=== PATIENT | female | born 1955 | race Caucasian/White ===

== ENCOUNTER 2021-04-20 09:53 | Outpatient (REF) | payer MEDICARE, SELFPAY ==
[2021-04-20 11:19] LABS: MANUAL DIFF FLAG NO
[2021-04-20 11:23] LABS: Basophils Absolute Auto 0.1 X10*3/uL (0.0-0.2); Basophils Percent Auto 0.9 % (0-2); Eosinophils Absolute Auto 0.3 X10*3/uL (0.0-0.4); Eosinophils Percent Auto 4.6 % (0-4); Hematocrit 43.6 % (37-47); Hemoglobin 14.4 g/dl (12.0-16.0); Imm Gran Abs Auto 0.02 X10*3/uL (0.00-0.03); Imm Gran Pct Auto 0.3 % (0.0-0.4); Lymphocytes Absolute Auto 2.4 X10*3/uL (1.2-4.9); Lymphocytes Percent Auto 31.9 % (20-40); Mean Corpuscular Hemoglobin 28.9 pg (27.0-33.0); Mean Corpuscular Volume 87.4 fL (80-98); Mean Platelet Volume 9.4 fL (9.4-12.3); Monocytes Absolute Auto 0.6 X10*3/uL (0.1-1.2); Monocytes Percent Auto 7.8 % (2-11); Neutrophils Absolute Auto 4.1 X10*3/uL (2.0-8.3); Neutrophils Percent Auto 54.5 % (45-73); Platelet Count 245 X10*3/uL (160-400); Red Blood Count 4.99 X10*6/uL (4.20-5.50); Red Cell Distribution Width 13.2 % (11.0-16.0); White Blood Count 7.4 X10*3/uL (4.8-10.8)
[2021-04-20 11:45] LABS: Alanine Aminotransferase 13 U/L (0-31); Alkaline Phosphatase 84 U/L (39-117); Anion Gap 12 (12-20); Aspartate Amino Transferase 16 U/L (5-31); Bilirubin Total 0.6 mg/dL (0.0-1.0); Blood Urea Nitrogen 18 mg/dL (9-16); Calcium 9.5 mg/dL (8.4-10.2); Carbon Dioxide 24 mmol/L (22-29); Chloride 110 mmol/L (96-108); Cholesterol 170 mg/dL; Estimated Glomerular Filt Rate > 60; Glucose Fasting 102 mg/dL (60-99); HDL Cholesterol 56 mg/dL; LDL Cholesterol Calculated 96 mg/dl; Potassium 4.6 mmol/L (3.3-5.1); Sodium 141 mmol/L (135-145); Total Protein 6.6 g/dL (6.5-8.0); Triglycerides 91 mg/dL
[2021-04-20 11:54] LABS: Free T4 (Free Thyroxine) 0.98 ng/dL (0.71-1.85); Thyroid Stimulating Hormone 4.92 uIU/mL (0.32-4.0)
== END 2021-04-20 09:54 | disposition home or self-care (01) ==
LOC: HO.HMGCLDS 09:53
PROVIDERS: PCP Internal Medicine; Visit Provider Internal Medicine
DX: R21 Rash and other nonspecific skin eruption (principal); E03.9 Hypothyroidism, unspecified; L70.9 Acne, unspecified; Z86.010 Personal history of colon polyps; Z82.49 Family history of ischemic heart disease and other diseases of the circulatory system
CPT/HCPCS: 36415; 80053; 80061; 84439; 84443; 85025

== ENCOUNTER 2021-06-25 08:27 | Day surgery (SDC) | payer MEDICARE, SELFPAY ==
[2021-06-19 14:02] VITALS: BMI 38.4
--- NOTE | 2021-06-21 14:02 | HO.ANESPROP2 ---
Documented by User: Soheila Griffith NP 06/21/21 14:12 HPI - Anesthesia Eval Consult details Narrative: 66yo F for Colonoscopy [facility] Surgical History Surgical History History of loop electrical excision procedure (LEEP) Hx of colonoscopy Hx of tubal ligation Social History Social History Patient Tobacco Use Status: Never used Tobacco Use of substances other than those prescribed or required for medical reasons: No Are you DNR?: No Advance Directives: No Advance Directives Information Provided: Yes Recently lost weight without trying: No Nutrition Risks: No Nutritional Risk Meds Allergies Allergy/AdvReac Type Severity Reaction Status Date / Time Sulfa (Sulfonamide Allergy Severe Anaphylaxis Verified 06/25/21 08:56 Antibiotics) amoxicillin Allergy Mild Rash Verified 06/25/21 08:56 Exam Exam Date and Time: June 21, 2021 1402 Height,Weight and Vital Signs: Height 5 ft 2 in Weight 95.254 kg Pertinent Lab Results Pertinent Lab Results: Laboratory Tests 04/20/21 04/20/21 10:00 10:00 WBC 7.4 Hgb 14.4 Hct 43.6 Plt Count 245 Sodium 141 Potassium 4.6 Chloride 110 H Carbon Dioxide 24 BUN 18 H Creatinine 0.92 Assessment and Plan Assessment Anesthesia Assessment: Chart Reviewed Documented by User: Bel Jorge MD 06/25/21 09:50 [facility] Surgical History Surgical History History of loop electrical excision procedure (LEEP) Hx of colonoscopy Hx of tubal ligation History of Problems with Anesthesia: No Social History Social History Patient Tobacco Use Status: Never used Tobacco Use of substances other than those prescribed or required for medical reasons: No Are you DNR?: No Advance Directives: No Advance Directives Information Provided: Yes Recently lost weight without trying: No Nutrition Risks: No Nutritional Risk Meds Allergies Allergy/AdvReac Type Severity Reaction Status Date / Time Sulfa (Sulfonamide Allergy Severe Anaphylaxis Verified 06/25/21 08:56 Antibiotics) amoxicillin Allergy Mild Rash Verified 06/25/21 08:56 Exam Airway Mallampati Class: II TM Dist: >3cm Neck ROM: Full Heart: RRR Lungs: CTA Assessment and Plan Assessment Anesthesia Assessment: Anesthesia Plan Discussed Final Anesthetic Review History of Problems with Anesthesia: No NPO: Yes ASA Class: II Final Preanesthetic Review: Meds/Allgs Chart Reviewed, Consent Obtained/Reviewed and Anes Risks/Benef Reviewed Patient Risk: Low Procedure Risk: Low Anesthetic Plan Anesthetic Plan: MAC: Disposition: Standard PACU
[2021-06-25 08:34] VITALS: BMI 37.5
[2021-06-25 08:37] VITALS: BP 148/79; PULSE 87; RESP 16; TEMP 36.7; O2SAT 98
[2021-06-25] MEDS: Lactated Ringers 1,000 ML 100 ML IVCONT (08:54)
[2021-06-25 10:50] VITALS: BP 110/57; PULSE 72; RESP 16; TEMP 36.8; O2SAT 93
--- NOTE | 2021-06-25 10:52 | P.BOP_ITS ---
Brief Operative Note Date of Service: 06/25/21 Pre-op diagnosis: Screening, change in BM's Post-op diagnosis: other (Colon polyp, R/O microscopic colitis, R/O proctitis) Procedure: Colonoscopy to the cecum and TI with bx/removal of polyp, and biopsies Surgeon: Gerardo Allan Anesthesia: MAC Was an Staff Software Engineer used for this Procedure?: No Estimated blood loss (mL): 3.0 Pathology: other (A. Ascending colon B.Polyp at 50cm C. Descending colon D. Rectum) Condition: stable Disposition: PACU
[2021-06-25 11:05] VITALS: BP 121/96; PULSE 64; RESP 18; TEMP 37.2; O2SAT 99
--- NOTE | 2021-06-25 15:16 | OP_ITS ---
SURGEON: Gerardo Allan MD INDICATIONS: The patient presents for evaluation of colorectal cancer screening, personal history of tubular adenoma of the colon, and slight change in bowel habits. Full consent has been obtained from her for this, including risks of bleeding and perforation. PREOPERATIVE DIAGNOSIS: POSTOPERATIVE DIAGNOSIS: PROCEDURE PERFORMED: Colonoscopy to the cecum and terminal ileum with biopsy and removal of polyp, and biopsies. ESTIMATED BLOOD LOSS: COMPLICATIONS: ANESTHESIA: Monitored anesthesia care. ASSISTANTS: SPECIMENS: PREOPERATIVE DIAGNOSES: Colorectal cancer screening, personal history of tubular adenoma of the colon, change in bowel habits. POSTOPERATIVE DIAGNOSES: Colorectal cancer screening, personal history of tubular adenoma of the colon, change in bowel habits, small colon polyp, rule out microscopic colitis and proctitis, diverticulosis and internal hemorrhoids. DESCRIPTION OF PROCEDURE: The patient was placed in the left lateral decubitus position. The digital rectal exam revealed no abnormalities. The Olympus video pediatric colonoscope was entered into the rectum and advanced easily to the cecum. Once in the cecum, I did identify normal-appearing cecal pouch with appendiceal orifice and a normal-appearing ileocecal valve. The terminal ileum was cannulated and appeared normal. The scope was withdrawn back in the colon. The entire cecum and ileocecal valve appeared normal. The scope was slowly withdrawn assessing all mucosal surfaces carefully. Preparation was excellent. At 50 cm, was a flat approximately 3 or 4 mm polyp, which was biopsied and completely removed with cold biopsy forceps. I did not visualize any sign of colitis. Biopsies were obtained in the ascending and descending colon to rule out microscopic colitis. There was a mild amount of sigmoid diverticulosis. In the rectum, scope was retroflexed visualizing internal hemorrhoids, as well as some questionable changes of a proctitis with some edema and erythema, but no erosions nor ulceration. Biopsies were obtained from the distal rectum as well. The scope was straightened out and withdrawn from the patient. She tolerated the procedure well and was returned to recovery area in stable condition. IMPRESSION: 1. Small colon polyp, status post biopsy and removal. 2. Diverticulosis. 3. Rule out microscopic colitis. 4. Rule out proctitis. 5. Internal hemorrhoids. PLAN: The results of the biopsies will be checked. I would recommend a repeat colonoscopy in 5 years for further screening in regard to the finding of the polyp and her previous history of polyps. She did advise me that using some Imodium was helping her bowel movements improve and I would recommend that she simply continue that for the time being. If things are stable, she can see me on a p.r.n. basis. Depending upon the results of the biopsies and her clinical course, I may need to see her in the future and possibly start her on any specific treatment for underlying colitis or proctitis. She was advised not to use any aspirin and NSAIDs for 1 more week. This has been discussed with her . MD KEVIN Moreau/SHARI / [id number]
== END 2021-06-25 12:22 | disposition home or self-care (01) ==
PROVIDERS: PCP Internal Medicine; Visit Provider Internal Medicine
PROC: 0DJD8ZZ Inspection of Lower Intestinal Tract, Via Natural or Artificial Opening Endoscopic (ICD-10-PCS; CPT 45378; principal; 2021-06-25 09:40)
DX: Z12.11 Encounter for screening for malignant neoplasm of colon (principal); Z86.010 Personal history of colon polyps; D12.5 Benign neoplasm of sigmoid colon; K57.30 Diverticulosis of large intestine without perforation or abscess without bleeding; K64.8 Other hemorrhoids; K58.8 Other irritable bowel syndrome; Z79.82 Long term (current) use of aspirin; Z88.2 Allergy status to sulfonamides; Z88.1 Allergy status to other antibiotic agents; Z98.51 Tubal ligation status
CPT/HCPCS: 45380; 88305

== ENCOUNTER 2021-07-20 12:59 | Outpatient (REF) | payer MEDICARE, SELFPAY ==
--- NOTE | ~2021-07-20 | MM_ITS ---
EXAMINATION: MM SCREENING DIGITAL BREAST TOMOSYNTHESIS, BILATERAL CLINICAL INFORMATION: Screening. Asymptomatic. The lifetime risk of breast cancer based on the Tyrer-Cuzick Model is 7%. COMPARISON: Mammography: 05/11/2020, 03/30/2019, 02/16/2018 TECHNIQUE: Digital breast tomosynthesis is performed in both the craniocaudal and mediolateral oblique views along with computer-aided detection (CAD). Synthesized 2D images are generated from the tomosynthesis. FINDINGS: The breasts are almost entirely fatty (ACR BI-RADS breast composition Category a). There are no significant masses, abnormal calcifications, or other abnormalities. Background stromal markings are stable. No significant changes. MM/MM tomosynthesis screening BI IMPRESSION: No mammographic evidence of malignancy. ASSESSMENT: BI-RADS 1: Negative RECOMMENDATION: Routine annual mammography screening. This patient's information was entered into a reminder system with a target due date for their next mammogram.
== END 2021-07-20 13:00 | disposition home or self-care (01) ==
LOC: HO.MAMMO 12:59
PROVIDERS: Visit Provider Internal Medicine
DX: Z12.31 Encounter for screening mammogram for malignant neoplasm of breast (principal)
CPT/HCPCS: 77063; 77067

== ENCOUNTER 2021-12-18 10:14 | Outpatient (REF) | payer MEDICARE, SELFPAY ==
[2021-12-18 11:59] LABS: Alanine Aminotransferase 13 U/L (0-31); Albumin Level 3.9 g/dL (3.5-5.0); Alkaline Phosphatase 81 U/L (39-117); Anion Gap 12 (12-20); Aspartate Amino Transferase 16 U/L (5-31); Bilirubin Total 0.6 mg/dL (0.0-1.0); Blood Urea Nitrogen 21 mg/dL (9-16); Calcium 9.5 mg/dL (8.4-10.2); Carbon Dioxide 24 mmol/L (22-29); Chloride 107 mmol/L (96-108); Cholesterol 184 mg/dL; Estimated Glomerular Filt Rate > 60; Glucose Fasting 111 mg/dL (60-99); HDL Cholesterol 57 mg/dL; LDL Cholesterol Calculated 108 mg/dl; Potassium 4.3 mmol/L (3.3-5.1); Sodium 139 mmol/L (135-145); Total Protein 6.7 g/dL (6.5-8.0); Triglycerides 95 mg/dL
[2021-12-18 12:10] LABS: Free T4 (Free Thyroxine) 0.88 ng/dL (0.71-1.85); Thyroid Stimulating Hormone 9.21 uIU/mL (0.32-4.0)
== END 2021-12-18 10:15 | disposition home or self-care (01) ==
LOC: HO.HMGCLDS 10:14
PROVIDERS: Visit Provider Internal Medicine
DX: E78.00 Pure hypercholesterolemia, unspecified (principal); R94.6 Abnormal results of thyroid function studies
CPT/HCPCS: 36415; 80053; 80061; 84439; 84443

== ENCOUNTER 2022-03-29 09:58 | Outpatient (REF) | payer MEDICARE, SELFPAY ==
[2022-03-29 11:36] LABS: Alanine Aminotransferase 15 U/L (0-31); Alkaline Phosphatase 83 U/L (39-117); Anion Gap 14 (12-20); Aspartate Amino Transferase 16 U/L (5-31); Bilirubin Total 0.5 mg/dL (0.0-1.0); Blood Urea Nitrogen 18 mg/dL (9-16); Carbon Dioxide 23 mmol/L (22-29); Chloride 109 mmol/L (96-108); Estimated Glomerular Filt Rate > 60; Glucose Random 109 mg/dL (60-115); Potassium 4.5 mmol/L (3.3-5.1); Sodium 141 mmol/L (135-145); Total Protein 6.7 g/dL (6.5-8.0)
[2022-03-29 11:59] LABS: Free T4 (Free Thyroxine) 1.15 ng/dL (0.71-1.85); Thyroid Stimulating Hormone 3.37 uIU/mL (0.32-4.0)
== END 2022-03-29 09:59 | disposition home or self-care (01) ==
LOC: HO.HMGCLDS 09:58
PROVIDERS: PCP Internal Medicine; Visit Provider Internal Medicine
DX: E03.9 Hypothyroidism, unspecified (principal); R19.7 Diarrhea, unspecified
CPT/HCPCS: 36415; 80053; 84439; 84443

== ENCOUNTER 2022-07-22 13:26 | Outpatient (REF) | payer MEDICARE, SELFPAY ==
--- NOTE | ~2022-07-22 | MM_ITS ---
EXAMINATION: MM SCREENING DIGITAL BREAST TOMOSYNTHESIS, BILATERAL CLINICAL INFORMATION: Screening. Asymptomatic. The lifetime risk of breast cancer based on the Tyrer-Cuzick Model is 6%. COMPARISON: Mammography: 07/20/2021, 05/11/2020, 03/30/2019 TECHNIQUE: Digital breast tomosynthesis is performed in both the craniocaudal and mediolateral oblique views along with computer-aided detection (CAD). Synthesized 2D images are generated from the tomosynthesis. Additional left MLO view is provided. FINDINGS: The breasts are almost entirely fatty (ACR BI-RADS breast composition Category a). Background stromal markings are similar to prior studies and there is no interval architectural abnormality or developing density. There are no significant masses, abnormal calcifications, or other abnormalities. Skin contours are smooth. No significant changes from prior exams. MM/MM tomosynthesis screening BI IMPRESSION: No mammographic evidence of malignancy. ASSESSMENT: BI-RADS 1: Negative RECOMMENDATION: Routine annual mammography screening. This patient's information was entered into a reminder system with a target due date for their next mammogram.
== END 2022-07-22 13:27 | disposition home or self-care (01) ==
LOC: HO.MAMMO 13:26
PROVIDERS: PCP Internal Medicine; Visit Provider Internal Medicine
DX: Z12.31 Encounter for screening mammogram for malignant neoplasm of breast (principal)
CPT/HCPCS: 77063; 77067

== ENCOUNTER 2023-03-18 14:11 | Outpatient (REF) | payer MEDICARE, SELFPAY ==
--- NOTE | ~2023-03-18 | XR_ITS ---
EXAMINATION: XR HUMERUS, LEFT CLINICAL INFORMATION: Pain. COMPARISON: None available. TECHNIQUE: AP and lateral views of the left humerus. FINDINGS: Bony alignment and mineralization are normal. The glenohumeral joint is intact. The acromioclavicular and coracoclavicular intervals are normal. There is mild osteoarthritic change of the acromioclavicular joint. There is calcific tendinitis of the left rotator cuff insertion. The elbow joint is unremarkable. No focal soft tissue swelling, gas or foreign body is seen. XR/XR humerus LT IMPRESSION: 1. No fracture or dislocation is seen. 2. There is mild osteoarthritic change of the left acromioclavicular joint. 3. There is calcific tendinitis of the left rotator cuff insertion.
== END 2023-03-18 14:12 | disposition home or self-care (01) ==
LOC: HO.XRAY 14:11
PROVIDERS: PCP Internal Medicine; Visit Provider Internal Medicine
DX: M25.512 Pain in left shoulder (principal)
CPT/HCPCS: 73060

== ENCOUNTER 2023-03-19 09:18 | Outpatient (REF) | payer MEDICARE, SELFPAY ==
[2023-03-19 11:14] LABS: MANUAL DIFF FLAG NO
[2023-03-19 11:49] LABS: Basophils Absolute Auto 0.1 X10*3/uL (0.0-0.2); Eosinophils Absolute Auto 0.5 X10*3/uL (0.0-0.4); Hematocrit 44.2 % (37.0-47.0); Hemoglobin 13.9 g/dl (12.0-16.0); Imm Gran Abs Auto 0.02 X10*3/uL (0.00-0.03); Imm Gran Pct Auto 0.3 % (0.0-0.4); Lymphocytes Absolute Auto 2.4 X10*3/uL (1.2-4.9); Lymphocytes Percent Auto 33.7 % (20-40); Mean Corpuscular HGB Conc 31.4 g/dl (31.0-35.0); Mean Corpuscular Hemoglobin 28.4 pg (27.0-33.0); Mean Corpuscular Volume 90.4 fL (80.0-98.0); Mean Platelet Volume 9.8 fL (9.4-12.3); Monocytes Absolute Auto 0.6 X10*3/uL (0.1-1.2); Neutrophils Absolute Auto 3.5 x10*3/uL (2.0-8.3); Platelet Count 214 X10*3/uL (160-400); Red Blood Count 4.89 X10*6/uL (4.20-5.50); Red Cell Distribution Width 13.2 % (11.0-16.0)
[2023-03-19 12:36] LABS: Alanine Aminotransferase 13 U/L (0-31); Albumin Level 3.9 g/dL (3.5-5.0); Alkaline Phosphatase 77 U/L (39-117); Anion Gap 15 (12-20); Aspartate Amino Transferase 16 U/L (5-31); Bilirubin Total 0.6 mg/dL (0.0-1.0); Blood Urea Nitrogen 25 mg/dL (9-16); Calcium 9.3 mg/dL (8.4-10.2); Carbon Dioxide 22 mmol/L (22-29); Chloride 110 mmol/L (96-108); Cholesterol 174 mg/dL; Estimated Glomerular Filt Rate > 60; Glucose Fasting 92 mg/dL (60-99); HDL Cholesterol 58 mg/dL; LDL Cholesterol Calculated 101 mg/dl; Potassium 4.3 mmol/L (3.3-5.1); Sodium 143 mmol/L (135-145); Triglycerides 78 mg/dL
[2023-03-19 12:43] LABS: Free T4 (Free Thyroxine) 1.14 ng/dL (0.71-1.85); Thyroid Stimulating Hormone 3.88 uIU/mL (0.32-4.0)
== END 2023-03-19 09:19 | disposition home or self-care (01) ==
LOC: HO.HMGCLDS 09:18
PROVIDERS: PCP Internal Medicine; Visit Provider Internal Medicine
DX: E03.9 Hypothyroidism, unspecified (principal); Z86.010 Personal history of colon polyps; Z83.3 Family history of diabetes mellitus
CPT/HCPCS: 36415; 80053; 80061; 84439; 84443; 85025

== ENCOUNTER 2023-06-12 11:33 | Outpatient (REF) | payer MEDICARE, SELFPAY ==
[2023-06-12 13:13] LABS: MANUAL DIFF FLAG NO
[2023-06-12 13:16] LABS: Basophils Absolute Auto 0.1 X10*3/uL (0.0-0.2); Basophils Percent Auto 0.9 % (0-2); Eosinophils Absolute Auto 0.6 X10*3/uL (0.0-0.4); Eosinophils Percent Auto 4.5 % (0-4); Hemoglobin 14.8 g/dl (12.0-16.0); Imm Gran Abs Auto 0.04 X10*3/uL (0.00-0.03); Imm Gran Pct Auto 0.3 % (0.0-0.4); Lymphocytes Absolute Auto 2.5 X10*3/uL (1.2-4.9); Lymphocytes Percent Auto 20.2 % (20-40); Mean Corpuscular HGB Conc 32.9 g/dl (31.0-35.0); Mean Corpuscular Hemoglobin 29.3 pg (27.0-33.0); Mean Corpuscular Volume 89.1 fL (80.0-98.0); Mean Platelet Volume 9.5 fL (9.4-12.3); Monocytes Absolute Auto 0.9 X10*3/uL (0.1-1.2); Monocytes Percent Auto 7.1 % (2-11); Neutrophils Absolute Auto 8.4 x10*3/uL (2.0-8.3); Platelet Count 223 X10*3/uL (160-400); Red Blood Count 5.05 X10*6/uL (4.20-5.50); Red Cell Distribution Width 12.9 % (11.0-16.0); White Blood Count 12.6 X10*3/uL (4.8-10.8)
[2023-06-12 13:30] LABS: Alanine Aminotransferase 13 U/L (0-31); Albumin Level 4.2 g/dL (3.5-5.0); Alkaline Phosphatase 87 U/L (39-117); Anion Gap 12 (12-20); Aspartate Amino Transferase 15 U/L (5-31); Bilirubin Total 0.7 mg/dL (0.0-1.0); Blood Urea Nitrogen 11 mg/dL (9-16); C Reactive Protein 2.35 mg/dL (< or = 0.50); Calcium 9.6 mg/dL (8.4-10.2); Carbon Dioxide 25 mmol/L (22-29); Chloride 107 mmol/L (96-108); Estimated Glomerular Filt Rate > 60; Glucose Random 114 mg/dL (60-115); Lipase 14 U/L (8-78); Sodium 140 mmol/L (135-145); Total Protein 7.5 g/dL (6.5-8.0)
== END 2023-06-12 11:34 | disposition home or self-care (01) ==
LOC: HO.10HDL 11:33
PROVIDERS: Visit Provider Internal Medicine
DX: R10.11 Right upper quadrant pain (principal)
CPT/HCPCS: 36415; 80053; 83690; 85025; 86140

== ENCOUNTER 2023-06-12 11:51 | Outpatient (REF) | payer MEDICARE, SELFPAY ==
--- NOTE | ~2023-06-12 | US_ITS ---
EXAMINATION: US ABDOMEN COMPLETE CLINICAL INFORMATION: Right upper quadrant abdominal pain. COMPARISON: None available. TECHNIQUE: Real-time imaging of the abdominal viscera. FINDINGS: PANCREAS: Evaluation of pancreas is limited due to bowel gas distribution. Visualized portions are unremarkable. ABDOMINAL AORTA: The proximal, mid, and distal segments are normal in caliber. INFERIOR VENA CAVA: Visualized portions are normal. LIVER: There are 2 cysts in the liver, measured 0.6 x 0.3 x 0.5 cm in the left lobe of the liver and mildly septated cyst seen in the right lobe, measured 2.0 x 1.5 x 1.7 cm. Another cyst in the right lobe of the liver measured 4.2 x 2.3 x 1.6 The liver is normal in size. The liver contour is normal. Parenchymal echogenicity is normal. No focal hepatic lesion. There is no intrahepatic biliary duct dilatation seen. Centimeters with septations. Abating the diaphragm. GALLBLADDER: Gallbladder revealed multiple mobile stones. Sonographic Sutton's sign reported negative and gallbladder wall is borderline, measured 0.4 cm. There is no pericholecystic fluid collection. COMMON BILE DUCT: CBD is not seen due to bowel gas distribution. RIGHT KIDNEY: 10.0 cm. No hydronephrosis. No renal calculi or focal parenchymal lesions. LEFT KIDNEY: 8.5 cm. No hydronephrosis. No renal calculi or focal parenchymal lesions. SPLEEN: Normal. The spleen measures 8.8 cm in maximum dimension. There is 0.8 x 1.1 x 1.0 cm splenule present FREE FLUID: None. US/US abdomen complete IMPRESSION: 1. Multiple cysts in the liver. 2. Cholelithiasis without evidence of cholecystitis. 3. Limited evaluation of pancreas and CBD due to bowel gas distribution.
== END 2023-06-12 11:52 | disposition home or self-care (01) ==
LOC: HO.US 11:51
PROVIDERS: PCP Internal Medicine; Visit Provider Internal Medicine
DX: R10.11 Right upper quadrant pain (principal)
CPT/HCPCS: 76700

== ENCOUNTER 2023-06-18 13:54 | Outpatient (AMB) | payer MEDICARE, SELFPAY ==
[2023-06-18 14:01] VITALS: BP 148/68; PULSE 75; BMI 36.8
--- NOTE | 2023-06-18 14:01 | A.OFFVIS_ITS ---
Intake Vital Signs 06/18/23 14:01 Height 5 ft 2 in Weight 201 lb BMI 36.8 BP 148/68 H Blood Pressure Location Rt brachial Position Sitting Pulse 75 Intake Visit Reasons: Gallstones Intake Note: This patient presents for an assessment for gallstones. Patient c/o; reports RUQ pain, reports intermittent, reports no loss of appetite, reports no changes in bowel habits. 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 She describes having some episodes of mild right upper quadrant epigastric pain for about 2 years now. However, 2 weeks ago, she noted an episode that lasted for 24 hours. Denies any nausea or vomiting at that time. She was sent by her primary care physician Dr. Simms for an ultrasound and this showed multiple liver cysts as well as gallstones. She says she is asymptomatic at this time She does not recall any aggravating precipitating factor for her abdominal pain. [facility] Medical History (Updated 06/18/23 @ 14:24 by Emmanuel Harry MD) Morbid obesity Gallstone Surgical History History of loop electrical excision procedure (LEEP) Hx of tubal ligation Hx of colonoscopy Social History Patient Tobacco Use Status: Never used Tobacco Review of Systems Const Denies chills and Denies fever(s) Card Denies chest pain, Denies dyspnea and Denies dyspnea on exertion Resp Denies cough, Denies dyspnea and Denies dyspnea on exertion GI Denies hematochezia and Denies change in bowel habits Denies hematuria Musc Denies back pain and Denies limited range of motion Neuro Denies focal weakness and Denies convulsions Psych Denies depression and Denies mood swings Physical Exam Vital Signs: Last Vital Signs Pulse 75 06/18/23 14:01 BP 148/68 H 06/18/23 14:01 Const Other: Obese General: comfortable and no acute distress Orientation/consciousness: patient oriented x3 Neck Neck: Yes no lymphadenopathy Resp Auscultation: clear to auscultation bilaterally Cardio Rhythm: regular rhythm GI Palpation (GI): Soft to palpation, nontender and no guarding Neuro General: patient oriented x3 Assessment & Plan Assessment & Plan (1) Gallstone: Code(s): K80.20 - Calculus of gallbladder without cholecystitis without obstruction Plan: She has had some mild right upper quadrant pain for the past 2 years. She had an episode that lasted for 24 hours 2 weeks ago. She had an ultrasound done which showed gallstones along with multiple liver cysts. Her pain is distant with biliary colic. I therefore explained to her the option of proceeding with cholecystectomy. I discussed the technique of laparoscopic cholecystectomy and possible conversion to open. I reviewed the risks including but not limited to bleeding, infections, bowel injury, injury to liver or the bile ducts, retained stones, bile leak, as well as the benefits and alternatives. She said she would like to proceed. She says she is going on a cruise in 2 weeks so she will likely schedule this when she returns. He understands the risk of recurrent pain. She had multiple liver cysts on ultrasound. I will order for a CAT scan to further define these prior to her surgery. Orders: Orders Blood Urea Nitrogen Today K80.20 - Calculus of gallbladder without cholecystitis without obstruction CT abdomen pelvis w IV con Today K80.20 - Calculus of gallbladder without cholecystitis without obstruction Creatinine Today K80.20 - Calculus of gallbladder without cholecystitis without obstruction Coding Level of Care Code New Pt Level 3 (82782) Diagnoses Gallstone K80.20
== END 2023-06-18 14:29 | disposition home or self-care (01) ==
PROVIDERS: PCP Internal Medicine; Visit Provider Surgery
DX: K80.20 Calculus of gallbladder without cholecystitis without obstruction (principal)
CPT/HCPCS: 99203

== ENCOUNTER → 2023-06-18 13:54 | Outpatient (BNVA) | payer MEDICARE, SELFPAY | PROVIDERS: PCP Internal Medicine; Visit Provider Surgery | DX: K80.20 Calculus of gallbladder without cholecystitis without obstruction (principal) | CPT/HCPCS: 99202 ==

== ENCOUNTER 2023-07-28 13:28 | Outpatient (REF) | payer MEDICARE, SELFPAY | END 2023-07-28 13:29 | disposition home or self-care (01) | LOC: HO.MAMMO 13:28 | PROVIDERS: PCP Internal Medicine; Visit Provider Internal Medicine | DX: Z12.31 Encounter for screening mammogram for malignant neoplasm of breast (principal) | CPT/HCPCS: 77063; 77067 ==

== ENCOUNTER → 2023-07-28 13:30 | Outpatient (BNV) | payer MEDICARE, SELFPAY | PROVIDERS: PCP Internal Medicine; Visit Provider Radiology Diagnostic Radiology | DX: Z12.31 Encounter for screening mammogram for malignant neoplasm of breast (principal) | CPT/HCPCS: 77063; 77067 ==

== ENCOUNTER 2023-07-28 13:54 | Outpatient (REF) | payer MEDICARE, SELFPAY ==
[2023-07-28 15:05] LABS: Blood Urea Nitrogen 17 mg/dL (9-16); Estimated Glomerular Filt Rate 58
== END 2023-07-28 13:55 | disposition home or self-care (01) ==
LOC: HO.LAB 13:54
PROVIDERS: PCP Internal Medicine; Visit Provider Surgery
DX: K80.20 Calculus of gallbladder without cholecystitis without obstruction (principal)
CPT/HCPCS: 36415; 82565; 84520

== ENCOUNTER 2023-07-30 13:34 | Outpatient (REF) | payer MEDICARE, SELFPAY ==
--- NOTE | ~2023-07-30 | CT_ITS ---
EXAMINATION: CT ABDOMEN AND PELVIS WITH CONTRAST CLINICAL INFORMATION: Cholelithiasis without cholecystitis. COMPARISON: Abdominal ultrasound 06/12/2023. TECHNIQUE: Multidetector volumetric images were obtained from the superior aspect of the liver through the pubic symphysis following administration 85 mL of Omnipaque 350 intravenous contrast. Sagittal and coronal reformatted images were obtained on the technologist's workstation. Oral contrast: No This CT examination was performed using dose optimization techniques as appropriate, variously including the following: *Automated exposure control *Adjustment of mA and/or kV according to patient size (this includes techniques or standardized protocols for targeted exams where dose is matched to indication/reason for exam; i.e. extremities or head) *Use of iterative reconstruction technique DLP: 535 mGy-cm FINDINGS: LUNG BASES: The visualized lung bases are unremarkable. LIVER, GALLBLADDER, AND BILIARY TREE: There are numerous cysts and/or hemangiomas throughout the liver. No imaging follow-up is recommended. There is no biliary ductal dilatation. Cholelithiasis without gallbladder distention. Mild gallbladder wall thickening without pericholecystic inflammation. Findings may relate to chronic cholecystitis. Common bile duct is normal in caliber. PANCREAS: Diffuse fatty infiltration. No discrete mass or ductal dilatation. No peripancreatic inflammation. SPLEEN: Unremarkable. ADRENAL GLANDS: No adrenal mass. KIDNEYS AND URETERS: The kidneys are normal in size, shape, and attenuation. No hydronephrosis, hydroureter, or calculi seen. No perinephric stranding. BLADDER: Unremarkable. GASTROINTESTINAL TRACT: The small and large bowel are normal in caliber. Mild colonic diverticulosis without evidence of diverticulitis. ABDOMINAL WALL: No significant hernia is appreciated. LYMPH NODES: No lymphadenopathy. VASCULAR: No aortic aneurysm. PELVIC VISCERA: The endometrial stripe appears thickened measuring 0.6-0.9 cm. The cervical endometrium appears thickened measuring 1.6 x 2.3 cm. No ovarian lesion. OSSEOUS STRUCTURES: Mild diffuse degenerative changes throughout the imaged spine with severe degenerative disc disease at L5-S1. CT/CT abdomen pelvis w IV con IMPRESSION: Abnormally thickened uterine and cervical endometrium. Recommend transvaginal pelvic ultrasound for further evaluation and gynecology referral for management. Cholelithiasis and suspected chronic cholecystitis. Consider correlation with nuclear medicine biliary scintigraphy with CCK to evaluate gallbladder ejection fraction if clinically relevant. No biliary ductal dilatation. Mild colonic diverticulosis without evidence of diverticulitis. Fleischner guidelines were followed.
[2023-07-30] MEDS: iohexoL 350 MG/ML 75 ML INFUS..BTL 85 ML IV (14:43)
== END 2023-07-30 13:35 | disposition home or self-care (01) ==
LOC: HO.CT 13:34
PROVIDERS: PCP Internal Medicine; Visit Provider Surgery
DX: K80.20 Calculus of gallbladder without cholecystitis without obstruction (principal)
CPT/HCPCS: 74177; Q9967

== ENCOUNTER → 2023-08-15 07:25 | Outpatient (BNV) | payer MEDICARE, SELFPAY | PROVIDERS: PCP Internal Medicine; Visit Provider Surgery | DX: K83.9 Disease of biliary tract, unspecified (principal); Z90.49 Acquired absence of other specified parts of digestive tract | CPT/HCPCS: 47600; 99024; 99499 ==

== ENCOUNTER 2023-08-15 11:53 | Inpatient (IN) | payer MEDICARE, SELFPAY ==
[2023-07-31 15:31] VITALS: BMI 34.9
--- NOTE | 2023-08-04 09:44 | HO.ANESPROP2 ---
Documented by User: Soheila Griffith NP 08/04/23 09:45 HPI - Anesthesia Eval Consult details Narrative: 68yo F for Cholecystectomy Laparoscopic, possible open PMFSH Active Problems Active Problems: All Active Problems (Updated 07/31/23 @ 15:41 by Isis Jamison, SALVADOR) Morbid obesity (Acute) Gallstone (Acute) Past Medical History Medical History S/p dental crown Hypothyroidism Morbid obesity Gallstone Surgical History Surgical History History of loop electrical excision procedure (LEEP) Hx of tubal ligation Hx of colonoscopy History of Problems with Anesthesia: No Social History Social History Household Members: Spouse Housing: House Are you a primary medical care evaluation specialist to a significant other at home: No Do you presently have visiting nurse or other home services: No Patient Tobacco Use Status: Never used Tobacco Use of substances other than those prescribed or required for medical reasons: No Have you been hit, kicked, punched, or otherwise hurt by someone within the past year? If so, by whom?: No Are you DNR?: No Advance Directives: No Advance Directives Information Provided: Yes Advance Directives on File: No Recently lost weight without trying: No Nutrition Risks: No Nutritional Risk Meds Allergies Allergy/AdvReac Type Severity Reaction Status Date / Time Sulfa (Sulfonamide Allergy Severe Anaphylaxis Verified 08/15/23 07:40 Antibiotics) amoxicillin Allergy Mild Rash Verified 08/15/23 07:40 Home Medications Medication Instructions Recorded Confirmed Last Taken Type levothyroxine 50 mcg tablet 50 mcg PO DAILY 06/18/23 07/31/23 08/15/23 History Exam Height,Weight and Vital Signs: Height 5 ft 2 in Weight 86.636 kg Pertinent Lab Results Pertinent Lab Results: Laboratory Tests 06/12/23 06/12/23 07/28/23 11:45 11:45 14:03 WBC 12.6 H Hgb 14.8 Hct 45.0 Plt Count 223 Sodium 140 Potassium 4.0 Chloride 107 Carbon Dioxide 25 BUN 17 H Creatinine 0.96 Assessment and Plan Assessment Anesthesia Assessment: Chart Reviewed Final Anesthetic Review History of Problems with Anesthesia: No Documented by User: Bel Jorge MD 08/15/23 08:26 PMFSH Past Medical History Medical History S/p dental crown Hypothyroidism Morbid obesity Gallstone Surgical History Surgical History History of loop electrical excision procedure (LEEP) Hx of tubal ligation Hx of colonoscopy Social History Social History Household Members: Spouse Housing: House Are you a primary medical care evaluation specialist to a significant other at home: No Do you presently have visiting nurse or other home services: No Patient Tobacco Use Status: Never used Tobacco Use of substances other than those prescribed or required for medical reasons: No Have you been hit, kicked, punched, or otherwise hurt by someone within the past year? If so, by whom?: No Are you DNR?: No Advance Directives: No Advance Directives Information Provided: Yes Advance Directives on File: No Recently lost weight without trying: No Nutrition Risks: No Nutritional Risk Meds Allergies Allergy/AdvReac Type Severity Reaction Status Date / Time Sulfa (Sulfonamide Allergy Severe Anaphylaxis Verified 08/15/23 07:40 Antibiotics) amoxicillin Allergy Mild Rash Verified 08/15/23 07:40 Home Medications Medication Instructions Recorded Confirmed Last Taken Type levothyroxine 50 mcg tablet 50 mcg PO DAILY 06/18/23 07/31/23 08/15/23 History Exam Airway Mallampati Class: II TM Dist: >3cm Neck ROM: Full Loose/Missing/Broken Teeth: No Heart: RRR Lungs: CTA Assessment and Plan Assessment Anesthesia Assessment: Anesthesia Plan Discussed Final Anesthetic Review NPO: Yes ASA Class: II Final Preanesthetic Review: Meds/Allgs Chart Reviewed, Consent Obtained/Reviewed and Anes Risks/Benef Reviewed Patient Risk: Low Procedure Risk: Intermediate Anesthetic Plan Anesthetic Plan: GA Disposition: Standard PACU
[2023-08-13 09:38] VITALS: BMI 36.8
[2023-08-15] VITALS (23 sets, daily range): BP systolic 105–173; BP diastolic 47–89; PULSE 66–84; RESP 10–18; TEMP 36.1–37; O2SAT 93–100
--- NOTE | ~2023-08-15 | FL_ITS ---
EXAMINATION: XR FLUOROSCOPY WITH IMAGES CLINICAL INFORMATION: ERCP. COMPARISON: CT of the abdomen and pelvis July 2023 and abdominal ultrasound May 2023 TECHNIQUE: Fluoroscopy Supervised By: Dr. Esmer Castelan. Fluoroscopy Time: 128.0 seconds. Cumulative Dose: 65.41 mGy. DAP: Not available on this device. Images: 7. FINDINGS: There is no intrahepatic biliary duct dilatation. The common bile duct is slightly dilated. No definite filling defect seen on submitted images. Later images demonstrate a balloon in the distal common bile duct. There is question of a surgical drain in the right upper quadrant. FL/FL guidance in OR IMPRESSION: Fluoroscopy guidance for ERCP.
--- NOTE | ~2023-08-15 | XR_ITS ---
EXAMINATION: XR CHEST CLINICAL INFORMATION: Preop crackles COMPARISON: None available. TECHNIQUE: Frontal view of the chest was obtained. FINDINGS: No significant abnormality is noted involving the heart, lungs, mediastinum, bony thorax or soft tissues. XR/XR chest 1V IMPRESSION: Unremarkable examination.
[2023-08-15] MEDS: Lactated Ringers 1,000 ML 100 ML IVCONT ×2 (07:49→14:35)
--- NOTE | 2023-08-15 08:06 | MHC.SHP ---
Pre-Procedural Eval Section A Date of Service: 08/15/23 Section B Chief Complaint: Calculus of gallbladder without cholecystitis with Details of Present Illness: has had gallstones, with symptoms for a few months now Relevant Family History (Specify if Yes): No Relevant Social History: None Present Medications: see Short Stay Collaborative assessment Medical History: Significant History (obese) History of Previous Operations: Relevant previous surgery/procedure and date(s) Allergies: Allergies Allergy/AdvReac Type Severity Reaction Status Date / Time Sulfa (Sulfonamide Allergy Severe Anaphylaxis Verified 08/15/23 07:40 Antibiotics) amoxicillin Allergy Mild Rash Verified 08/15/23 07:40 Review of Systems Sugical H&P ROS: Negative: Constitution, Cardiovascular, Respiratory, Neurological, Psychiatric, Hem-Onc, Allergic/Immunologic, Gastrointestinal, Genitourinary, Musculoskeletal, Integumentary, Endocrine and Eyes/Ears/Nose/Throat Exam Surgical H&P Exam: Normal: HEENT, Normal: Heart, Normal: Lungs, Normal: Extremities, Normal: Abdomen, Normal: Skin and Normal: Neurological Plan Diagnosis/Plan: Unchanged I have reviewed the history and physical and performed a pertinent physical examination on my patient. No changes have occurred unless specified. Time Spent With Patient Time: Total time managing care of this patient today ____ minutes.
--- NOTE | 2023-08-15 11:37 | W.PM.OPN ---
Operative Note Operative Note Date of Service: 08/15/23 Narrative: Preop Diagnosis: Gallstones with symptoms Postop diagnosis: Gallstones, chronic cholecystitis, very thickened GB neck with chronic induration of the area of the neck and cystic duct Procedure: Attempted laparoscopic cholecystectomy, converted to open cholecystectomy Surgeon: Emmanuel Harry MD information services assistant: SHANE Charles The patient is a 68 year old female with the history of right upper quadrant pain and tenderness with note of multiple gallstones. I had actually seen her months ago for her symptomatic gallstones but she had wanted to go on a scheduled cruise to [place] at that time so she put off the surgery. She was scheduled to have the procedure done 3 weeks ago but she says she was sick with flu at that time. In the interim, she has had symptoms which have been occasionally severe. She understood the technique laparoscopic cholecystectomy and open cholecystectomy. She was aware of the risks, benefits, and alternatives She was brought to the operating room. She was placed supine under general anesthesia via endotracheal tube. The abdomen was prepped and draped in the usual sterile fashion. A surgical time-out was done. The patient received Cefotan 2 g IV preoperatively I made a short supraumbilical incision using blade 15. This was carried down through the full-thickness of the skin subcutaneous fat down to the fascia. The fascia was incised. The peritoneum was entered. Through this incision a Zita son port was introduced. Pneumoperitoneum was induced to a pressure of 15 mm of mercury. With laparoscopic visualization, I proceeded to insert a 5/12 minute port epigastric area below the subcostal margin, and 2 5 mm ports introduced through small incisions below the subcostal margin along the anterior axillary line and the midclavicular line. Graspers were placed through these working ports. The patient was placed in the head-up and a [id number] position. There was note of some filmy adhesions anterior wall the gallbladder which were able to take down gently. We were able to apply a grasper at the fundus of the gallbladder. This was used to tract the gallbladder cephalad. Another grasper was placed towards the part of the gallbladder and this was used to retract the gallbladder laterally. At this point therefore the gallbladder was being retracted in a cephalad and I will fashion to put the area of the neck and the cystic duct on stretch. We immediately noted that there was note of a lot of chronically thickened, fibrotic tissue surrounding the neck of the gallbladder all the way distally. We had to do a lot of careful dissection using the electrocautery hook as well as blood dissection with the [place] dissector to try to carefully identify that duct. I proceeded with this dissection slowly but we had contoured significant difficulty in view of the very poor planes with the chronic fibrotic and inflammatory changes. I had to carefully dissect wall of the gallbladder at the neck using the electrocautery hook to see if we can mobilize a little bit of this and identify some planes. We did this on both the medial and lateral aspect. This part of the procedure took an extended period of time. Eventually I saw what appeared to be a narrow structure from the gallbladder going distally. We continue to gently dissect this until were able to clearly define this. Initially, we had felt that this this could be the cystic duct so I applied clips on this proximally and distally and this was transected between clips with endo scissors. A continue to attempt to dissected the hilum. We had to do a lot of careful dissection to release all these fibrotic bands within the hilum. However, the anatomy was very poorly defined. We could not identify any clear plane on the lower margin of the gallbladder. We attempted to continue to define the wall of the gallbladder along the inferior margin for an extended period time until I felt that doing so put the patient at risk for injury as we could not clearly see whether there was a large vessel or any other structure within this thickened fibrotic hilum . We were also creating tears on the chronically indurated of the gallbladder with retraction and we had to retrieve a lot of gallstones that had spilled onto the field. Eventually, I decided that it would be safer to proceed with an open cholecystectomy to avoid injury distal to the neck. I desufflated and removed all ports. I made a subcostal incision connecting the previous incisions using blade 15. This was carried down through the full-thickness of the skin and subcutaneous fat down to the fascia. I incised the anterior sheath with electrocautery and divided the rectus muscles and external/internal obliques laterally until I encountered the posterior sheath. The posterior sheath was opened and the peritoneum was entered. I applied the Bookwalter retractor to retract bowel loops away from the subhepatic space. The Bookwalter retractor was also positioned to allow optimal exposure of the field. By doing so I was able to visualize the gallbladder which at this point had contracted with removal of the stones and bile. I applied a Karly on the fundus to allow retraction. I incised the peritoneum of the gallbladder with electrocautery at the fundus to create a plane of dissection between the gallbladder wall and the liver bed. We continued to divide and dissect along this posterior wall although the ends were not well-defined and we were creating oozing along the liver bed. We continued with this dissection until I was able to release the entire body of the gallbladder and had the neck fully defined and exposed. There was note of a lot of thickening and fibrotic tissue around the distal neck so I decided to transect the neck more proximally instead of further dissecting towards the cystic duct to prevent any injury. I applied a right angle clamp at the distal neck of the gallbladder. I divided the gallbladder proximally from the clamp and this was delivered and sent as specimen. I applied 2-0 ties to the stump of the gallbladder at the neck. This area also felt indurated and tenuous. I released the right angle clamp. We copiously irrigated. I have heard the surrounding transverse colon and small bowel loops and there was no evidence of any injury I positioned a 7 LORENA drain at the subhepatic space. This was brought out through an exit site on the right upper quadrant. This was secured to the skin with nylon 2-0 stitch. Once hemostasis was confirmed, I proceeded to then remove all lap pads and retractors. I closed the posterior sheath with a running Polysorb 2-[address] laterally. I closed the anterior sheath with running Maxon 1 stitch. The subcutaneous layer was reapposed with Polysorb 3-0 sutures. Skin closure was achieved with polyps or 4-0 subcuticular running sutures The fascia of the umbilical incision was also closed with a [id number]-[id number] Polysorb 0 stitch The rest of the other port sites were closed with subcuticular Polysorb 4-0 sutures. All incisions were infiltrated with Marcaine 0.5% for postop analgesia. Dressings were applied. The LORENA drain was secured The procedure was then completed. The patient tolerated the procedure well. There were no immediate complications initial final counts of sponges and instruments were correct. Estimated blood loss about 100 cc . The patient was extubated without difficulty and transferred to the recovery room with stable vital signs.
[2023-08-15] MEDS: HYDROmorphone HCl 0.5 MG/0.5 ML SYRINGE 0.25 MG IVPUSH ×4 (12:06→12:27)
--- NOTE | 2023-08-15 12:09 | PHA.MEDREC ---
Pharmacy Consult ? Medication Reconciliation Pharmacy has completed the medication reconciliation. Med rec reviewed by nursing (Lauren).
[2023-08-15] MEDS: oxyCODONE HCl Immed Release 5 MG TABLET PO (12:15)
[2023-08-15] MEDS: fentaNYL citrate/PF 100 MCG/2 ML VIAL 25 MCG IVPUSH (12:22)
[2023-08-15] MEDS: fentaNYL citrate/PF 100 MCG/2 ML VIAL 50 MCG IVPUSH (12:34)
--- NOTE | 2023-08-15 14:54 | PM.EVENT ---
Event Note Date of Service: 08/15/23 Event Note: Underwent open cholecystectomy earlier in view of severe chronic fibrotic changes surrounding the neck of the gallbladder Appears to have adequate pain control although does complain of pain LORENA drain scanty bloody output Stable vital sign Pain management Clear liquids, advance as tolerated Dr. Che will be covering this weekend Above reviewed with patient and her Virgilio Time Spent With Patient Time: Total time managing care of this patient today ____ minutes.
[2023-08-15] MEDS: Morphine Sulfate 4 MG/ML CARTRIDGE IVPUSH (18:27)
[2023-08-15] MEDS: Docusate Sodium 100 MG CAPSULE PO (21:36)
[2023-08-15] MEDS: 0.9 % Sodium Chloride Flush 3 ML SYRINGE IVFLUSH (21:38)
[2023-08-16] MEDS: Morphine Sulfate 4 MG/ML CARTRIDGE IVPUSH ×2 (00:28→05:18)
[2023-08-16] MEDS: Lactated Ringers 1,000 ML 100 ML IVCONT ×3 (01:05→22:28)
[2023-08-16 03:32] VITALS: BP 105/55; PULSE 62; RESP 18; TEMP 36.7; O2SAT 94
[2023-08-16 06:39] LABS: MANUAL DIFF FLAG NO
[2023-08-16 07:09] LABS: Basophils Absolute Auto 0.1 X10*3/uL (0.0-0.2); Basophils Percent Auto 0.4 % (0-2); Eosinophils Percent Auto 0.2 % (0-4); Hematocrit 36.6 % (37.0-47.0); Imm Gran Abs Auto 0.05 X10*3/uL (0.00-0.03); Imm Gran Pct Auto 0.4 % (0.0-0.4); Lymphocytes Absolute Auto 2.5 X10*3/uL (1.2-4.9); Lymphocytes Percent Auto 18.9 % (20-40); Mean Corpuscular HGB Conc 32.8 g/dl (31.0-35.0); Mean Corpuscular Hemoglobin 28.8 pg (27.0-33.0); Mean Corpuscular Volume 87.8 fL (80.0-98.0); Mean Platelet Volume 9.7 fL (9.4-12.3); Monocytes Percent Auto 7.3 % (2-11); Neutrophils Absolute Auto 9.6 x10*3/uL (2.0-8.3); Neutrophils Percent Auto 72.8 % (45-73); Platelet Count 200 X10*3/uL (160-400); Red Blood Count 4.17 X10*6/uL (4.20-5.50); Red Cell Distribution Width 13.4 % (11.0-16.0); White Blood Count 13.2 X10*3/uL (4.8-10.8)
[2023-08-16 07:14] VITALS: BP 118/60; PULSE 60; RESP 18; TEMP 37.1; O2SAT 93
[2023-08-16 08:27] VITALS: O2SAT 95
[2023-08-16] MEDS: Levothyroxine Sodium 50 MCG TABLET PO (08:51)
[2023-08-16] MEDS: oxyCODONE HCl Immed Release 5 MG TABLET 10 MG PO ×3 (08:52→18:57)
[2023-08-16] MEDS: Docusate Sodium 100 MG CAPSULE PO ×2 (08:53→20:12)
[2023-08-16] MEDS: Heparin Sodium,Porcine 5,000 UNIT/ML VIAL 5000 UNIT SUBCUT ×2 (11:40→20:12)
--- NOTE | 2023-08-16 14:59 | MHC.CM.PN ---
PT REPORTS SHE LIVES WITH HER AND IS INDEPENDENT WITH CARE SHE DENIES USE OF DME OR HOME SERVICES SHE COMPLETED A HCP TODAY NAMING HER , CIERRA, AND SISTER, LURDES, HER AGENTS PCP: MERY MACDONALD DCP: HOME NO SERVICES VIA FAMILY TRANSPORT
[2023-08-16 15:03] VITALS: BP 122/60; PULSE 64; RESP 18; TEMP 37.3; O2SAT 92
--- NOTE | 2023-08-16 15:26 | HO.POSTANES ---
Post Anesthesia Evaluation Post Anesthesia Evaluation Date of Service: 07/16/23 Vital Signs: Vital Signs Temp Pulse Resp BP Pulse Ox O2 Del Method 08/16/23 15:03 99.1 F 64 18 122/60 92 Room Air 08/16/23 08:27 95 Room Air 08/16/23 07:14 98.8 F 60 18 118/60 93 Room Air 08/16/23 03:32 98.1 F 62 18 105/55 L 94 Room Air Anesthesia: General Endotracheal-GETA Mental Status: Awake Pain Control: Satisfactory Nausea/Vomiting: None Hydration: Adequate Anesthesia-Related Issues: No Anes. Related Issues
--- NOTE | 2023-08-16 17:43 | PM.PNGS ---
Subjective Subjective Date of Service: 08/16/23 Interval history: Uneventful day. Tolerating her diet. Minimal incisional discomfort. Serosanguineous LORENA output. Physical Exam Vital Signs: Vital Signs: Last Vital Signs Temp 99.1 F 08/16/23 15:03 Pulse 64 08/16/23 15:03 Resp 18 08/16/23 15:03 BP 122/60 08/16/23 15:03 Pulse Ox 92 08/16/23 15:03 O2 Del Method Room Air 08/16/23 15:03 O2 Flow Rate 2 08/15/23 14:10 BMI result Body Mass Index 36.8 GI: Other: Abdomen is soft. Wound dressings clean dry and intact Objective Data Active Medications Docusate Sodium (Docusate Sodium 100 Mg Capsule) 100 mg PO BID [facility] Last Admin: 08/16/23 08:53 Dose: 100 mg Documented By: CARMEN Fentanyl (Fentanyl Citrate/Pf 100 Mcg/2 Ml Vial) 50 mcg IVPUSH Q5M PRN; Protocol PRN Reason: Pain, Severe (Pain Scale 7-10) Last Admin: 08/15/23 12:34 Dose: 50 mcg Documented By: LAKEISHA Heparin Sodium (Porcine) (Heparin Sodium,Porcine 5,000 Unit/Ml Vial) 5,000 unit SUBCUT Q8H [facility] Last Admin: 08/16/23 11:40 Dose: 5,000 unit Documented By: CARMEN Lactated Ringer's (Lr) 1,000 mls @ 100 mls/hr IVCONT .Q10H [facility] Last Admin: 08/16/23 11:40 Dose: 100 mls/hr Documented By: CARMEN Levothyroxine Sodium (Levothyroxine Sodium 50 Mcg Tablet) 50 mcg PO DAILY@0600 [facility] Last Admin: 08/16/23 08:51 Dose: 50 mcg Documented By: CARMEN Melatonin (Melatonin 3 Mg Tablet) 6 mg PO BEDTIME PRN PRN Reason: Insomnia Morphine Sulfate (Morphine Sulfate 4 Mg/Ml Cartridge) 4 mg IVPUSH Q4H PRN; Protocol PRN Reason: Pain, Severe (Pain Scale 7-10) Last Admin: 08/16/23 05:18 Dose: 4 mg Documented By: SHAUNA Ondansetron HCl (Ondansetron Hcl 4 Mg/2 Ml Vial) 4 mg IVPUSH Q8H PRN PRN Reason: Nausea and Vomiting Oxycodone HCl (Oxycodone Hcl Immed Release 5 Mg Tablet) 5 mg PO Q4H PRN PRN Reason: Pain, Moderate(Pain Scale 4-6) Oxycodone HCl (Oxycodone Hcl Immed Release 5 Mg Tablet) 10 mg PO Q4H PRN PRN Reason: Pain, Severe (Pain Scale 7-10) Last Admin: 08/16/23 13:19 Dose: 10 mg Documented By: CARMEN Sodium Chloride (0.9 % Sodium Chloride Flush 3 Ml Syringe) 3 ml IVFLUSH QSHIFT [facility] Last Admin: 08/16/23 15:36 Dose: Not Given Documented By: CARMEN Non-Admin Reason: IV Running Labs 08/16/23 06:19 Labs: Laboratory Results - last 24 hr 08/16/23 06:19 MCV 87.8 MCH 28.8 MCHC 32.8 RDW 13.4 Plt Count 200 MPV 9.7 Immature Gran % (Auto) 0.4 Neut % (Auto) 72.8 Lymph % (Auto) 18.9 L [place] % (Auto) 7.3 Eos % (Auto) 0.2 Baso % (Auto) 0.4 Lymph # (Auto) 2.5 [place] # (Auto) 1.0 Eos # (Auto) 0.0 Baso # (Auto) 0.1 Abs Immat Gran (auto) 0.05 H Absolute Neuts (auto) 9.6 H Absolute Nucleated RBC 0.000 Nucleated RBC % (auto) 0.0 Procedures Date of Service Date of Service: 08/16/23 Progress Note: A&P Assessment and plan (1) Status post cholecystectomy: Status: Acute Plan Continue current plan; out of bed, incentive spirometry, analgesia, serial exams Time Spent With Patient Time: Total time managing care of this patient today ____ minutes. Quality Stroke Does the patient have a stroke diagnosis?: No VTE Prior VTE?: No VTE Risk Level:: Surgical - moderate VTE Device Contraindication: N/A - Device Ordered VTE Drug Contraindication: N/A - Med Ordered
[2023-08-16 19:49] VITALS: BP 113/55; PULSE 71; RESP 18; TEMP 37.1; O2SAT 96
[2023-08-16] MEDS: oxyCODONE HCl Immed Release 5 MG TABLET PO (22:38)
[2023-08-17] VITALS (7 sets, daily range): BP systolic 107–137; BP diastolic 54–69; PULSE 71–87; RESP 16–18; TEMP 36.6–37.6; O2SAT 93–98
[2023-08-17] MEDS: oxyCODONE HCl Immed Release 5 MG TABLET 10 MG PO ×3 (02:47→15:44)
[2023-08-17] MEDS: Levothyroxine Sodium 50 MCG TABLET PO (04:59)
[2023-08-17] MEDS: Heparin Sodium,Porcine 5,000 UNIT/ML VIAL 5000 UNIT SUBCUT ×3 (04:59→20:19)
[2023-08-17] MEDS: Docusate Sodium 100 MG CAPSULE PO ×2 (09:07→20:19)
--- NOTE | 2023-08-17 11:41 | PM.PNGS ---
Subjective Subjective Date of Service: 08/17/23 Interval history: Incisional pain improved. Tolerating diet. LORENA still putting out bilious output Physical Exam Vital Signs: Vital Signs: Last Vital Signs Temp 97.9 F 08/17/23 07:59 Pulse 87 08/17/23 09:12 Resp 16 08/17/23 07:59 BP 121/58 L 08/17/23 07:59 Pulse Ox 95 08/17/23 09:12 O2 Del Method Room Air 08/17/23 09:12 O2 Flow Rate 2 08/17/23 04:08 BMI result Body Mass Index 36.8 GI: Other: Dressings taken down, all incisions clean dry and intact. LORENA with bilious output. Objective Data Active Medications Docusate Sodium (Docusate Sodium 100 Mg Capsule) 100 mg PO BID [facility] Last Admin: 08/17/23 09:07 Dose: 100 mg Documented By: CARMEN Fentanyl (Fentanyl Citrate/Pf 100 Mcg/2 Ml Vial) 50 mcg IVPUSH Q5M PRN; Protocol PRN Reason: Pain, Severe (Pain Scale 7-10) Last Admin: 08/15/23 12:34 Dose: 50 mcg Documented By: LAKEISHA Heparin Sodium (Porcine) (Heparin Sodium,Porcine 5,000 Unit/Ml Vial) 5,000 unit SUBCUT Q8H [facility] Last Admin: 08/17/23 04:59 Dose: 5,000 unit Documented By: MITCH Levothyroxine Sodium (Levothyroxine Sodium 50 Mcg Tablet) 50 mcg PO DAILY@0600 [facility] Last Admin: 08/17/23 04:59 Dose: 50 mcg Documented By: MITCH Melatonin (Melatonin 3 Mg Tablet) 6 mg PO BEDTIME PRN PRN Reason: Insomnia Morphine Sulfate (Morphine Sulfate 4 Mg/Ml Cartridge) 4 mg IVPUSH Q4H PRN; Protocol PRN Reason: Pain, Severe (Pain Scale 7-10) Last Admin: 08/16/23 05:18 Dose: 4 mg Documented By: SHAUNA Ondansetron HCl (Ondansetron Hcl 4 Mg/2 Ml Vial) 4 mg IVPUSH Q8H PRN PRN Reason: Nausea and Vomiting Oxycodone HCl (Oxycodone Hcl Immed Release 5 Mg Tablet) 5 mg PO Q4H PRN PRN Reason: Pain, Moderate(Pain Scale 4-6) Last Admin: 08/16/23 22:38 Dose: 5 mg Documented By: NICOLE Oxycodone HCl (Oxycodone Hcl Immed Release 5 Mg Tablet) 10 mg PO Q4H PRN PRN Reason: Pain, Severe (Pain Scale 7-10) Last Admin: 08/17/23 09:07 Dose: 10 mg Documented By: CARMEN Sodium Chloride (0.9 % Sodium Chloride Flush 3 Ml Syringe) [facility] Last Admin: 08/17/23 07:35 Dose: Not Given Documented By: MITCH Non-Admin Reason: IV Running Labs 08/16/23 06:19 Procedures Date of Service Date of Service: 08/17/23 Progress Note: A&P Assessment and plan (1) Status post cholecystectomy: Status: Acute Plan Continue current plan; out of bed, incentive spirometry, follow LORENA output Time Spent With Patient Time: Total time managing care of this patient today ____ minutes. Quality Stroke Does the patient have a stroke diagnosis?: No VTE Prior VTE?: No VTE Risk Level:: Surgical - moderate VTE Device Contraindication: N/A - Device Ordered VTE Drug Contraindication: N/A - Med Ordered
[2023-08-17] MEDS: 0.9 % Sodium Chloride Flush 3 ML SYRINGE IVFLUSH ×2 (15:44→20:19)
[2023-08-18 03:55] VITALS: BP 127/70; PULSE 70; RESP 16; TEMP 36.6; O2SAT 94
[2023-08-18] MEDS: Heparin Sodium,Porcine 5,000 UNIT/ML VIAL 5000 UNIT SUBCUT ×3 (05:07→19:34)
[2023-08-18] MEDS: Levothyroxine Sodium 50 MCG TABLET PO (05:07)
[2023-08-18 07:33] VITALS: BP 116/63; PULSE 70; RESP 16; TEMP 36.4; O2SAT 94
[2023-08-18] MEDS: Docusate Sodium 100 MG CAPSULE PO ×2 (08:41→19:33)
[2023-08-18] MEDS: oxyCODONE HCl Immed Release 5 MG TABLET PO ×2 (08:42→13:21)
[2023-08-18] MEDS: 0.9 % Sodium Chloride Flush 3 ML SYRINGE IVFLUSH ×2 (08:43→15:51)
--- NOTE | 2023-08-18 08:54 | PM.PNGS ---
Subjective Subjective Date of Service: 08/18/23 Interval history: Reports some incisional pain, ranging between 3-5 in severity. She was able to go through the night without pain medication. Not much of an appetite but is able to tolerate fruit and yogurt this morning. LORENA output remains high at 485 for the past 24 hours. Fluid has a bilious tinge. Physical Exam Vital Signs: Vital Signs: Last Vital Signs Temp 97.6 F 08/18/23 07:33 Pulse 70 08/18/23 07:33 Resp 16 08/18/23 07:33 BP 116/63 08/18/23 07:33 Pulse Ox 94 08/18/23 07:33 O2 Del Method Room Air 08/18/23 07:33 O2 Flow Rate 2 08/17/23 04:08 BMI result Body Mass Index 36.8 Const: General: no acute distress Nutritional Appearance: well nourished Orientation/consciousness: patient oriented x3 Limitations: no limitations Eyes: Sclerae: sclerae normal Resp: Effort & Inspection: normal respiratory effort, no audible wheezes, no cough and no respiratory distress GI: Other: LORENA intact with serous/bilious fluid Inspection: Yes normal to inspection Palpation (GI): Soft to palpation and Tenderness to palpation present (GI) (Rehana-incisional) Skin: Other: No jaundice Neuro: General: patient oriented x3 Extrem: General: No edema Objective Data Active Medications Docusate Sodium (Docusate Sodium 100 Mg Capsule) 100 mg PO BID [facility] Last Admin: 08/18/23 08:41 Dose: 100 mg Documented By: KHLOE Fentanyl (Fentanyl Citrate/Pf 100 Mcg/2 Ml Vial) 50 mcg IVPUSH Q5M PRN; Protocol PRN Reason: Pain, Severe (Pain Scale 7-10) Last Admin: 08/15/23 12:34 Dose: 50 mcg Documented By: LAKEISHA Heparin Sodium (Porcine) (Heparin Sodium,Porcine 5,000 Unit/Ml Vial) 5,000 unit SUBCUT Q8H [facility] Last Admin: 08/18/23 05:07 Dose: 5,000 unit Documented By: CINDY Levothyroxine Sodium (Levothyroxine Sodium 50 Mcg Tablet) 50 mcg PO DAILY@0600 [facility] Last Admin: 08/18/23 05:07 Dose: 50 mcg Documented By: CINDY Melatonin (Melatonin 3 Mg Tablet) 6 mg PO BEDTIME PRN PRN Reason: Insomnia Morphine Sulfate (Morphine Sulfate 4 Mg/Ml Cartridge) 4 mg IVPUSH Q4H PRN; Protocol PRN Reason: Pain, Severe (Pain Scale 7-10) Last Admin: 08/16/23 05:18 Dose: 4 mg Documented By: SHAUNA Ondansetron HCl (Ondansetron Hcl 4 Mg/2 Ml Vial) 4 mg IVPUSH Q8H PRN PRN Reason: Nausea and Vomiting Oxycodone HCl (Oxycodone Hcl Immed Release 5 Mg Tablet) 5 mg PO Q4H PRN PRN Reason: Pain, Moderate(Pain Scale 4-6) Last Admin: 08/18/23 08:42 Dose: 5 mg Documented By: KHLOE Oxycodone HCl (Oxycodone Hcl Immed Release 5 Mg Tablet) 10 mg PO Q4H PRN PRN Reason: Pain, Severe (Pain Scale 7-10) Last Admin: 08/17/23 15:44 Dose: 10 mg Documented By: CARMEN Sodium Chloride (0.9 % Sodium Chloride Flush 3 Ml Syringe) 3 ml IVFLUSH [facility] Last Admin: 08/18/23 08:43 Dose: 3 ml Documented By: KHLOE Labs 08/16/23 06:19 Procedures Date of Service Date of Service: 08/18/23 Progress Note: A&P Assessment and plan (1) Status post cholecystectomy: Status: Acute Plan 68-year-old female patient with chronic cholecystitis due to cholelithiasis with significant scarring requiring conversion from a laparoscopic to an open cholecystectomy. LORENA in place producing approximately 485 mL of bile tinged fluid. Patient tolerating regular diet but not much of an appetite yet. Encouraged out of bed and ambulation. Also encouraged incentive spirometry. Will check CBC, BMP, and liver profile this morning. Continue to monitor LORENA output. Discussed plan with the patient and she expressed understanding and agrees with the plan. Time Spent With Patient Time: Total time managing care of this patient today ____ minutes. Quality Stroke Does the patient have a stroke diagnosis?: No VTE Prior VTE?: No VTE Risk Level:: Surgical - moderate VTE Device Contraindication: N/A - Device Ordered VTE Drug Contraindication: N/A - Med Ordered
[2023-08-18 09:11] LABS: MANUAL DIFF FLAG NO
[2023-08-18 09:15] LABS: Basophils Absolute Auto 0.1 X10*3/uL (0.0-0.2); Basophils Percent Auto 0.8 % (0-2); Eosinophils Absolute Auto 0.6 X10*3/uL (0.0-0.4); Hematocrit 38.8 % (37.0-47.0); Hemoglobin 12.5 g/dl (12.0-16.0); Imm Gran Abs Auto 0.03 X10*3/uL (0.00-0.03); Imm Gran Pct Auto 0.3 % (0.0-0.4); Lymphocytes Absolute Auto 2.4 X10*3/uL (1.2-4.9); Mean Corpuscular HGB Conc 32.2 g/dl (31.0-35.0); Mean Corpuscular Hemoglobin 28.8 pg (27.0-33.0); Mean Corpuscular Volume 89.4 fL (80.0-98.0); Mean Platelet Volume 9.2 fL (9.4-12.3); Monocytes Absolute Auto 0.7 X10*3/uL (0.1-1.2); Monocytes Percent Auto 7.4 % (2-11); Neutrophils Absolute Auto 5.4 x10*3/uL (2.0-8.3); Neutrophils Percent Auto 58.5 % (45-73); Platelet Count 207 X10*3/uL (160-400); Red Blood Count 4.34 X10*6/uL (4.20-5.50); Red Cell Distribution Width 13.4 % (11.0-16.0); White Blood Count 9.2 X10*3/uL (4.8-10.8)
[2023-08-18 09:39] LABS: Alanine Aminotransferase 30 U/L (0-31); Albumin Level 3.5 g/dL (3.5-5.0); Alkaline Phosphatase 74 U/L (39-117); Anion Gap 12 (12-20); Aspartate Amino Transferase 30 U/L (5-31); Bilirubin Direct 0.5 mg/dL (0.0-0.5); Bilirubin Total 0.9 mg/dL (0.0-1.0); Blood Urea Nitrogen 8 mg/dL (9-16); Calcium 9.3 mg/dL (8.4-10.2); Carbon Dioxide 27 mmol/L (22-29); Chloride 106 mmol/L (96-108); Creatinine Clr Calc Pharmacy 74.3; Estimated Glomerular Filt Rate > 60; Glucose Random 125 mg/dL (60-115); Potassium 4.2 mmol/L (3.3-5.1); Sodium 141 mmol/L (135-145); Total Protein 6.6 g/dL (6.5-8.0)
[2023-08-18 15:45] VITALS: BP 113/62; PULSE 71; RESP 16; TEMP 36.4; O2SAT 96
[2023-08-18 19:21] VITALS: BP 145/75; PULSE 83; RESP 18; TEMP 36.6; O2SAT 95
[2023-08-18] MEDS: oxyCODONE HCl Immed Release 5 MG TABLET 10 MG PO (19:38)
[2023-08-19] VITALS (10 sets, daily range): BP systolic 108–144; BP diastolic 55–77; PULSE 59–76; RESP 12–18; TEMP 36.1–37.5; O2SAT 93–99
[2023-08-19] MEDS: oxyCODONE HCl Immed Release 5 MG TABLET 10 MG PO ×2 (00:38→05:06)
[2023-08-19] MEDS: 0.9 % Sodium Chloride Flush 3 ML SYRINGE IVFLUSH ×2 (01:46→07:13)
[2023-08-19] MEDS: Heparin Sodium,Porcine 5,000 UNIT/ML VIAL 5000 UNIT SUBCUT ×2 (04:58→20:17)
[2023-08-19] MEDS: Levothyroxine Sodium 50 MCG TABLET PO (05:02)
--- NOTE | 2023-08-19 05:10 | PC.NURSE ---
Addendum entered by Berny Sharif RN 08/19/23 05:14: at 5am color of emmett drain nicole brown smell of bile Original Note: pt reports more pain this morning 02/24 and in lower abdomen vs upper abdomen before. emmett also large output 120 ml and 100 ml this morning
[2023-08-19] MEDS: Docusate Sodium 100 MG CAPSULE PO (07:13)
--- NOTE | 2023-08-19 08:39 | PM.PNGS ---
Subjective Subjective Date of Service: 08/19/23 Interval history: Reports incisional pain. Tolerating solid diet, PO intake slowly improving. Denies pain after eating. Has been OOB and ambulating. Passing flatus but no BM since Friday. Reports normally goes twice a day. Physical Exam Vital Signs: Vital Signs: Last Vital Signs Temp 97.8 F 08/19/23 07:16 Pulse 65 08/19/23 07:16 Resp 16 08/19/23 07:16 BP 121/58 L 08/19/23 07:16 Pulse Ox 95 08/19/23 07:16 O2 Del Method Room Air 08/19/23 07:16 O2 Flow Rate 2 08/17/23 04:08 BMI result Body Mass Index 36.8 Const: General: comfortable, no acute distress and alert Orientation/consciousness: patient oriented x3 Resp: Effort & Inspection: normal respiratory effort GI: Other: LORENA drain with bilious output Inspection: No distended and Yes incision (clean) Palpation (GI): Soft to palpation, Tenderness to palpation present (GI) (incisional, mild), no guarding and not rigid Skin: General skin exam: no rashes or lesions noted and no jaundice Neuro: General: patient oriented x3 Objective Data Active Medications Docusate Sodium (Docusate Sodium 100 Mg Capsule) 100 mg PO BID [facility] Last Admin: 08/19/23 07:13 Dose: 100 mg Documented By: LORNA Fentanyl (Fentanyl Citrate/Pf 100 Mcg/2 Ml Vial) 50 mcg IVPUSH Q5M PRN; Protocol PRN Reason: Pain, Severe (Pain Scale 7-10) Last Admin: 08/15/23 12:34 Dose: 50 mcg Documented By: LAKEISHA Heparin Sodium (Porcine) (Heparin Sodium,Porcine 5,000 Unit/Ml Vial) 5,000 unit SUBCUT Q8H [facility] Last Admin: 08/19/23 04:58 Dose: 5,000 unit Documented By: ELÍAS Levothyroxine Sodium (Levothyroxine Sodium 50 Mcg Tablet) 50 mcg PO DAILY@0600 [facility] Last Admin: 08/19/23 05:02 Dose: 50 mcg Documented By: ELÍAS Melatonin (Melatonin 3 Mg Tablet) 6 mg PO BEDTIME PRN PRN Reason: Insomnia Morphine Sulfate (Morphine Sulfate 4 Mg/Ml Cartridge) 4 mg IVPUSH Q4H PRN; Protocol PRN Reason: Pain, Severe (Pain Scale 7-10) Last Admin: 08/16/23 05:18 Dose: 4 mg Documented By: SHAUNA Ondansetron HCl (Ondansetron Hcl 4 Mg/2 Ml Vial) 4 mg IVPUSH Q8H PRN PRN Reason: Nausea and Vomiting Oxycodone HCl (Oxycodone Hcl Immed Release 5 Mg Tablet) 5 mg PO Q4H PRN PRN Reason: Pain, Moderate(Pain Scale 4-6) Last Admin: 08/18/23 13:21 Dose: 5 mg Documented By: KHLOE Oxycodone HCl (Oxycodone Hcl Immed Release 5 Mg Tablet) 10 mg PO Q4H PRN PRN Reason: Pain, Severe (Pain Scale 7-10) Last Admin: 08/19/23 05:06 Dose: 10 mg Documented By: ELÍAS Sodium Chloride (0.9 % Sodium Chloride Flush 3 Ml Syringe) 3 ml IVFLUSH [facility] Last Admin: 08/19/23 07:13 Dose: 3 ml Documented By: LORNA Labs 08/18/23 09:06 08/18/23 09:06 Labs: Laboratory Results - last 24 hr 08/18/23 09:06 MCV 89.4 MCH 28.8 MCHC 32.2 RDW 13.4 Plt Count 207 MPV 9.2 L Immature Gran % (Auto) 0.3 Neut % (Auto) 58.5 Lymph % (Auto) 26.0 [place] % (Auto) 7.4 Eos % (Auto) 7.0 H Baso % (Auto) 0.8 Lymph # (Auto) 2.4 [place] # (Auto) 0.7 Eos # (Auto) 0.6 H Baso # (Auto) 0.1 Abs Immat Gran (auto) 0.03 Absolute Neuts (auto) 5.4 Absolute Nucleated RBC 0.000 Nucleated RBC % (auto) 0.0 Anion Gap 12 Estim Creat Clear Calc 74.3 Estimated GFR > 60 Random Glucose 125 H Calcium 9.3 Total Bilirubin 0.9 Direct Bilirubin 0.5 AST 30 ALT 30 Alkaline Phosphatase 74 Total Protein 6.6 Albumin 3.5 Procedures Date of Service Date of Service: 08/19/23 Progress Note: A&P Assessment and plan (1) Status post cholecystectomy: Status: Acute Plan POD #4 s/p attempted lap, converted to open cholecystectomy for significant scarring. LORENA drain continues with high amount of bilious output- 300cc since midnight, concerning for bile leak. LFTs normal yesterday. Will order HIDA scan, GI consult for possible ERCP with stent placement. Plan discussed with patient, all questions answered. Time Spent With Patient Time: Total time managing care of this patient today ____ minutes. Quality Stroke Does the patient have a stroke diagnosis?: No VTE Prior VTE?: No VTE Risk Level:: Surgical - moderate VTE Device Contraindication: N/A - Device Ordered VTE Drug Contraindication: N/A - Med Ordered
[2023-08-19] MEDS: polyethylene glycoL 3350 17 GM POWD.PACK PO (08:49)
[2023-08-19] MEDS: Docusate Sodium 100 MG CAPSULE 200 MG PO ×2 (08:49→20:17)
--- NOTE | 2023-08-19 09:27 | PC.NURSE ---
Cancel HIDA Scan per GI.
--- NOTE | 2023-08-19 09:43 | PM.GICN ---
History of Present Illness Data of Consult Service Date: 08/19/23 Requesting physician: Ezio Small Primary Care Provider: Emmanuel Simms MD HPI Reason for consult: bile leak 68 yr old f with h xof gallstones and s/p cholecystectomy being seen for assessment for bile leak Patient came electively for cholecystectomy 5 d ago which had to be converted to open procedure due to adhesions and fibrosis. She had LORENA drain placed and since then she has had profuse o/p from the drain which is consistent with a likely biliary leak She has no abdominal pain, just some discomfort from surgical incision sites. She denies nausea, vomiting, no fevers, or chills, no chest pain, SOB, cough, no dark urine or pale stools. Review of Systems Review of Systems: Constitutional : No Weight loss, No Fever, No Chills ENT/Mouth : No sore throat, No Rhinorrhea Eyes: No Swelling, No Redness Cardiovascular : No Chest Pain, No SOB, No Edema Respiratory : No Cough, No Sputum, No Wheezing Gastrointestinal : see HPI Genitourinary : NO Dysuria, No Urinary Frequency, No Hematuria, No Urgency Musculoskeletal : No joint pain, No Myalgias, No Joint Swelling Skin : No Skin Lesions, No rash Neuro : No Weakness, No Numbness, No Dizziness, No Headache Psych : No Anxiety/Panic, No Depression Heme/Lymph: No Bruising, No Lymphadenopathy Endocrine : No Polyuria, No Polydipsia All other systems reviewed and are negative. [facility] Past Medical History Medical History S/p dental crown Hypothyroidism Morbid obesity Gallstone Family History Pertinent family history: mother had GB removed aged 30 Surgical History Surgical History History of loop electrical excision procedure (LEEP) Hx of tubal ligation Hx of colonoscopy Social History Social History Household Members: Spouse Housing: House Are you a primary resident care manager rn to a significant other at home: No Do you presently have visiting nurse or other home services: No Patient Tobacco Use Status: Never used Tobacco service: No Meds Allergies Allergy/AdvReac Type Severity Reaction Status Date / Time Sulfa (Sulfonamide Allergy Severe Anaphylaxis Verified 08/15/23 07:40 Antibiotics) amoxicillin Allergy Mild Rash Verified 08/15/23 07:40 Active Medications: Current Medications Docusate Sodium (Docusate Sodium 100 Mg Capsule) 200 mg PO BID [facility] Last Admin: 08/19/23 08:49 Dose: 200 mg Fentanyl (Fentanyl Citrate/Pf 100 Mcg/2 Ml Vial) 50 mcg IVPUSH Q5M PRN; Protocol PRN Reason: Pain, Severe (Pain Scale 7-10) Last Admin: 08/15/23 12:34 Dose: 50 mcg Heparin Sodium (Porcine) (Heparin Sodium,Porcine 5,000 Unit/Ml Vial) 5,000 unit SUBCUT Q8H [facility] Last Admin: 08/19/23 04:58 Dose: 5,000 unit Levothyroxine Sodium (Levothyroxine Sodium 50 Mcg Tablet) 50 mcg PO DAILY@0600 [facility] Last Admin: 08/19/23 05:02 Dose: 50 mcg Melatonin (Melatonin 3 Mg Tablet) 6 mg PO BEDTIME PRN PRN Reason: Insomnia Morphine Sulfate (Morphine Sulfate 4 Mg/Ml Cartridge) 4 mg IVPUSH Q4H PRN; Protocol PRN Reason: Pain, Severe (Pain Scale 7-10) Last Admin: 08/16/23 05:18 Dose: 4 mg Ondansetron HCl (Ondansetron Hcl 4 Mg/2 Ml Vial) 4 mg IVPUSH Q8H PRN PRN Reason: Nausea and Vomiting Oxycodone HCl (Oxycodone Hcl Immed Release 5 Mg Tablet) 5 mg PO Q4H PRN PRN Reason: Pain, Moderate(Pain Scale 4-6) Last Admin: 08/18/23 13:21 Dose: 5 mg Oxycodone HCl (Oxycodone Hcl Immed Release 5 Mg Tablet) 10 mg PO Q4H PRN PRN Reason: Pain, Severe (Pain Scale 7-10) Last Admin: 08/19/23 05:06 Dose: 10 mg Polyethylene Glycol (Polyethylene Glycol 3350 17 Gm Powd.Pack) 17 gm PO DAILY [facility] Last Admin: 08/19/23 08:49 Dose: 17 gm Sodium Chloride (0.9 % Sodium Chloride Flush 3 Ml Syringe) 3 ml IVFLUSH QSHIFT [facility] Last Admin: 08/19/23 07:13 Dose: 3 ml Home Medications Medication Instructions Recorded Confirmed Last Taken Type levothyroxine 50 mcg tablet 50 mcg PO DAILY@0600 06/18/23 08/15/23 08/15/23 History Physical Exam Vital Signs: Vital Signs: Last Vital Signs Temp 97.8 F 08/19/23 07:16 Pulse 65 08/19/23 07:16 Resp 16 08/19/23 07:16 BP 121/58 L 08/19/23 07:16 Pulse Ox 95 08/19/23 07:16 O2 Del Method Room Air 08/19/23 07:16 O2 Flow Rate 2 08/17/23 04:08 BMI result Body Mass Index 36.8 EXAM: GENERAL: The patient is well developed and nontoxic. VITAL SIGNS:see workflow HEENT: Nonicteric sclerae, PERRLA, EOMI. Oropharynx clear. Moist mucous membranes. Conjunctivae appear well perfused. No thyroid mass. CHEST: Chest wall is nontender. HEART: Regular rate and rhythm without murmurs. LUNGS: Clear to auscultation bilaterally. ABDOMEN: Soft, positive bowel sounds, nontender, no organomegaly.no flank tenderness--LORENA drain full of bilious fluid, had just been emptied a short while ago SKIN: No rash, no excessive bruising, petechiae, or purpura. NEUROLOGIC: Cranial nerves II-XII intact without motor/sensory deficit. Psych: Appearance: grossly normal Results Labs 08/18/23 09:06 08/18/23 09:06 Assessment and Plan (1) Status post cholecystectomy: Status: Acute (2) Bile leak: Status: Acute Plan 1/ Likely bile leak with high bile flow thru LORENA as noted in the I/O chart, also per op note, dense adhesions and scars, PLAN: /1 ERCP today with stent placement, risks discussed including pancreatitis, perforation, infection and bleeding, will attempt to reduce risks by optimal techniques, indomethacin, LR etc. Procedures Date of Service Date of Service: 08/19/23
--- NOTE | 2023-08-19 12:23 | MHC.SHP ---
Pre-Procedural Eval Section A Date of Service: 08/19/23 The patient is an INPATIENT: Yes The History & Physical has been completed within 30 days and I have reviewed it.: Yes Section B Chief Complaint: Calculus of gallbladder without cholecystitis with Allergies: Allergies Allergy/AdvReac Type Severity Reaction Status Date / Time Sulfa (Sulfonamide Allergy Severe Anaphylaxis Verified 08/15/23 07:40 Antibiotics) amoxicillin Allergy Mild Rash Verified 08/15/23 07:40 Plan I have reviewed the history and physical and performed a pertinent physical examination on my patient. No changes have occurred unless specified. Time Spent With Patient Time: Total time managing care of this patient today ____ minutes.
--- NOTE | 2023-08-19 12:42 | P.CONAN_ITS ---
HPI - Anesthesia Eval Consult details Narrative: 68 yo female patient for ERCP PMFSH Active Problems Active Problems: All Active Problems (Updated 08/19/23 @ 12:43 by Chanel Hernadez MD) Bile leak (Acute) Status post cholecystectomy (Acute) 08/15/23 Morbid obesity (Acute) Gallstone (Acute) Denies MIKE Difficulty coughing and taking a big breath but using Incentive Spirometry Past Medical History Medical History S/p dental crown Hypothyroidism Morbid obesity Gallstone Family History Family history of problems with anesthesia: No Surgical History Surgical History History of loop electrical excision procedure (LEEP) Hx of tubal ligation Hx of colonoscopy History of Problems with Anesthesia: No Social History Social History Household Members: Spouse Housing: House Are you a primary inspector health care facilities to a significant other at home: No Do you presently have visiting nurse or other home services: No Patient Tobacco Use Status: Never used Tobacco Use of substances other than those prescribed or required for medical reasons: No Currently Displaying Signs/Symptoms of Drug Intoxication Withdrawal: No Have you been hit, kicked, punched, or otherwise hurt by someone within the past year? If so, by whom?: No Do you feel safe in your current relationship?: No Is there a partner from a previous relationship who is making you feel unsafe now?: No Are you made to feel afraid or neglected: No Are you DNR?: No Advance Directives: No Advance Directives Information Provided: Yes Advance Directives on File: No Do you have thoughts of harming others: None Recently lost weight without trying: Yes How much weight loss: 2-13 pounds Eating poorly because of decreased appetite: Yes Nutrition screen score: 4 Nutrition Risks: Acute nausea or vomiting x1 week and Gastrointestinal Malabsorption Patient : No : No Poor oral hygiene: No service: No Meds Allergies Allergy/AdvReac Type Severity Reaction Status Date / Time Sulfa (Sulfonamide Allergy Severe Anaphylaxis Verified 08/15/23 07:40 Antibiotics) amoxicillin Allergy Mild Rash Verified 08/15/23 07:40 Active Medications: Current Medications Docusate Sodium (Docusate Sodium 100 Mg Capsule) 200 mg PO BID [facility] Last Admin: 08/19/23 08:49 Dose: 200 mg Fentanyl (Fentanyl Citrate/Pf 100 Mcg/2 Ml Vial) 50 mcg IVPUSH Q5M PRN; Protocol PRN Reason: Pain, Severe (Pain Scale 7-10) Last Admin: 08/15/23 12:34 Dose: 50 mcg Heparin Sodium (Porcine) (Heparin Sodium,Porcine 5,000 Unit/Ml Vial) 5,000 unit SUBCUT Q8H [facility] Last Admin: 08/19/23 11:13 Dose: Not Given Levothyroxine Sodium (Levothyroxine Sodium 50 Mcg Tablet) 50 mcg PO DAILY@0600 [facility] Last Admin: 08/19/23 05:02 Dose: 50 mcg Melatonin (Melatonin 3 Mg Tablet) 6 mg PO BEDTIME PRN PRN Reason: Insomnia Morphine Sulfate (Morphine Sulfate 4 Mg/Ml Cartridge) 4 mg IVPUSH Q4H PRN; Protocol PRN Reason: Pain, Severe (Pain Scale 7-10) Last Admin: 08/16/23 05:18 Dose: 4 mg Ondansetron HCl (Ondansetron Hcl 4 Mg/2 Ml Vial) 4 mg IVPUSH Q8H PRN PRN Reason: Nausea and Vomiting Oxycodone HCl (Oxycodone Hcl Immed Release 5 Mg Tablet) 5 mg PO Q4H PRN PRN Reason: Pain, Moderate(Pain Scale 4-6) Last Admin: 08/18/23 13:21 Dose: 5 mg Oxycodone HCl (Oxycodone Hcl Immed Release 5 Mg Tablet) 10 mg PO Q4H PRN PRN Reason: Pain, Severe (Pain Scale 7-10) Last Admin: 08/19/23 05:06 Dose: 10 mg Polyethylene Glycol (Polyethylene Glycol 3350 17 Gm Powd.Pack) 17 gm PO DAILY [facility] Last Admin: 08/19/23 08:49 Dose: 17 gm Sodium Chloride (0.9 % Sodium Chloride Flush 3 Ml Syringe) [facility] Last Admin: 08/19/23 07:13 Dose: 3 ml Home Medications Medication Instructions Recorded Confirmed Last Taken Type levothyroxine 50 mcg tablet 50 mcg PO DAILY@0600 06/18/23 08/15/23 08/15/23 History Exam Height,Weight and Vital Signs: Height 5 ft 2 in Weight 91.172 kg Last Vital Signs Temp 99.5 F 08/19/23 12:40 Pulse 75 08/19/23 12:40 Resp 16 08/19/23 12:40 BP 144/76 H 08/19/23 12:40 Pulse Ox 97 08/19/23 12:40 O2 Del Method Room Air 08/19/23 12:40 O2 Flow Rate 2 08/17/23 04:08 Pertinent Lab Results Pertinent Lab Results: Laboratory Tests 08/16/23 08/18/23 06:19 09:06 WBC 13.2 H 9.2 RBC 4.17 L 4.34 Hgb 12.0 12.5 Hct 36.6 L 38.8 MCV 87.8 89.4 MCH 28.8 28.8 MCHC 32.8 32.2 RDW 13.4 13.4 Plt Count 200 207 MPV 9.7 9.2 L Immature Gran % (Auto) 0.4 0.3 Neut % (Auto) 72.8 58.5 Lymph % (Auto) 18.9 L 26.0 [place] % (Auto) 7.3 7.4 Eos % (Auto) 0.2 7.0 H Baso % (Auto) 0.4 0.8 Lymph # (Auto) 2.5 2.4 [place] # (Auto) 1.0 0.7 Eos # (Auto) 0.0 0.6 H Baso # (Auto) 0.1 0.1 Abs Immat Gran (auto) 0.05 H 0.03 Absolute Neuts (auto) 9.6 H 5.4 Absolute Nucleated RBC 0.000 0.000 Nucleated RBC % (auto) 0.0 0.0 Sodium 141 Potassium 4.2 Chloride 106 Carbon Dioxide 27 Anion Gap 12 BUN 8 L Creatinine 0.75 Estim Creat Clear Calc 74.3 Estimated GFR > 60 Random Glucose 125 H Calcium 9.3 Total Bilirubin 0.9 Direct Bilirubin 0.5 AST 30 ALT 30 Alkaline Phosphatase 74 Total Protein 6.6 Albumin 3.5 Airway Mallampati Class: II TM Dist: >3cm Neck ROM: Full Loose/Missing/Broken Teeth: No Heart: RRR Lungs: Crackles R>L Assessment and Plan Assessment Anesthesia Assessment: Anesthesia Plan Discussed and Chart Reviewed Final Anesthetic Review Family History of Problems with Anesthesia: No History of Problems with Anesthesia: No NPO: Yes ASA Class: III and Emergency Final Preanesthetic Review: No Changes in Pt Med Stat, Meds/Allgs Chart Reviewed, Consent Obtained/Reviewed and Anes Risks/Benef Reviewed Patient Risk: Intermediate Procedure Risk: Low Assessment/Block/Sedation in SS: Assess/Block/Sedation-SS Anesthetic Plan Anesthetic Plan: GA Disposition: Standard PACU
--- NOTE | 2023-08-19 16:09 | W.PM.OPN ---
Operative Note Operative Note Date of Service: 08/19/23 Narrative: Description: Endoscopic retrograde cholangiopancreatography (ERCP) PROCEDURE: Endoscopic retrograde cholangiopancreatography with sphincterotomy, stone extraction, stent placement and intra op cholangiography INDICATION FOR THE PROCEDURE: Patient with a history of bile leak s/p cholecystectomy MEDICATIONS: General anesthesia, rectal indomethacin 100 mg, The risks of the procedure were made aware to the patient and consisted of medication reaction, bleeding, perforation, aspiration, and post ERCP pancreatitis. DESCRIPTION OF PROCEDURE: After informed consent and appropriate sedation, the duodenoscope was inserted into the oropharynx, down the esophagus, and into the stomach. The scope was then advanced through the pylorus to the ampulla. The ampulla had a markedly abnormal appearance, and was very bulbous. After correct alignment the CBD was wire cannulated with placement confirmed by cholangiogram. The duct was dilated. A generous sphincterotmy was performed and as the tome was pulled back a yellowish appearing triangular shaped gallstone popped out, measuring about 9-11 mm. A wire exchange was performed and an extraction balloon was swept up and down the duct with some residual debris removed. After this, a 10 Fr x 9 cm stent was successfully deployed with good bilious drainage noted. There was some minor oozing which had ceased by the end of the procedure. The stomach was then decompressed and the endoscope was withdrawn. FINDINGS: 1. Choledocholithiasis 2. Biliary leak s/p stent placement RECOMMENDATIONS: 1. NPO except ice chips for next 4-6 hrs then clears as tolerated, can advance diet tomorrow if feels well 2. Pull LORENA drain if biliary output starts to recede. 3. Repeat ERCP in about 2 months for stent removal.
--- NOTE | 2023-08-19 16:26 | PC.NURSE ---
Pt off unit for 1600 assessments down in SSS.
[2023-08-19] MEDS: Lactated Ringers 1,000 ML 80 ML IVCONT (17:34)
[2023-08-20] MEDS: Heparin Sodium,Porcine 5,000 UNIT/ML VIAL 5000 UNIT SUBCUT ×3 (03:16→20:19)
[2023-08-20 03:21] VITALS: BP 120/64; PULSE 56; RESP 16; TEMP 36; O2SAT 97
[2023-08-20] MEDS: Levothyroxine Sodium 50 MCG TABLET PO (05:29)
[2023-08-20] MEDS: Lactated Ringers 1,000 ML 80 ML IVCONT ×2 (05:30→15:59)
[2023-08-20 07:41] VITALS: BP 108/56; PULSE 65; RESP 16; TEMP 36.3; O2SAT 97
--- NOTE | 2023-08-20 08:12 | HO.POSTANES ---
Post Anesthesia Evaluation Post Anesthesia Evaluation Date of Service: 08/20/23 Vital Signs: Vital Signs Temp Pulse Resp BP Pulse Ox O2 Del Method 08/20/23 07:41 97.3 F 65 16 108/56 L 97 Room Air 08/20/23 03:21 96.8 F 56 16 120/64 97 Room Air Anesthesia: General Endotracheal-GETA Mental Status: Awake Pain Control: Satisfactory Nausea/Vomiting: None Hydration: Adequate Anesthesia-Related Issues: No Anes. Related Issues
[2023-08-20] MEDS: polyethylene glycoL 3350 17 GM POWD.PACK PO (08:19)
[2023-08-20] MEDS: 0.9 % Sodium Chloride Flush 3 ML SYRINGE IVFLUSH (08:19)
[2023-08-20] MEDS: Docusate Sodium 100 MG CAPSULE 200 MG PO (08:19)
--- NOTE | 2023-08-20 08:31 | PM.PNGS ---
Subjective Subjective Date of Service: 08/21/23 Interval history: feels well denies signficant pain ERCP done yesterday for cystic duct leak LORENA output has decreased significantly since Physical Exam Vital Signs: Vital Signs: Last Vital Signs Temp 97.3 F 08/20/23 07:41 Pulse 65 08/20/23 07:41 Resp 16 08/20/23 07:41 BP 108/56 L 08/20/23 07:41 Pulse Ox 97 08/20/23 07:41 O2 Del Method Room Air 08/20/23 07:41 O2 Flow Rate 4 08/19/23 16:28 BMI result Body Mass Index 36.8 Const: General: comfortable and no acute distress Resp: Effort & Inspection: normal respiratory effort Cardio: Rate: regular rate GI: Other: LORENA drain very scanty thin output; incisions clean Palpation (GI): Soft to palpation, not firm and no guarding Objective Data Active Medications Docusate Sodium (Docusate Sodium 100 Mg Capsule) 200 mg PO BID [facility] Last Admin: 08/20/23 08:19 Dose: 200 mg Documented By: HALEY Fentanyl (Fentanyl Citrate/Pf 100 Mcg/2 Ml Vial) 50 mcg IVPUSH Q5M PRN; Protocol PRN Reason: Pain, Severe (Pain Scale 7-10) Last Admin: 08/15/23 12:34 Dose: 50 mcg Documented By: LAKEISHA Fentanyl (Fentanyl Citrate/Pf 100 Mcg/2 Ml Vial) 25 mcg IVPUSH Q5M PRN; Protocol PRN Reason: Pain, Moderate(Pain Scale 4-6) Heparin Sodium (Porcine) (Heparin Sodium,Porcine 5,000 Unit/Ml Vial) 5,000 unit SUBCUT Q8H [facility] Last Admin: 08/20/23 03:16 Dose: 5,000 unit Documented By: JESUSITA Lactated Ringer's (Lr) 1,000 mls @ 80 mls/hr IVCONT .[id number] [facility] Last Admin: 08/20/23 05:30 Dose: 80 mls/hr Documented By: JESUSITA Promethazine HCl 6.25 mg/ (Sodium Chloride) 50.25 mls @ 201 mls/hr IV ONCE PRN PRN Reason: Nausea and Vomiting Levothyroxine Sodium (Levothyroxine Sodium 50 Mcg Tablet) 50 mcg PO DAILY@0600 [facility] Last Admin: 08/20/23 05:29 Dose: 50 mcg Documented By: JESUSITA Melatonin (Melatonin 3 Mg Tablet) 6 mg PO BEDTIME PRN PRN Reason: Insomnia Morphine Sulfate (Morphine Sulfate 4 Mg/Ml Cartridge) 4 mg IVPUSH Q4H PRN; Protocol PRN Reason: Pain, Severe (Pain Scale 7-10) Last Admin: 08/16/23 05:18 Dose: 4 mg Documented By: SHAUNA Ondansetron HCl (Ondansetron Hcl 4 Mg/2 Ml Vial) 4 mg IVPUSH Q8H PRN PRN Reason: Nausea and Vomiting Ondansetron HCl (Ondansetron Hcl 4 Mg/2 Ml Vial) 4 mg IVPUSH ONCE PRN PRN Reason: Nausea and Vomiting Oxycodone HCl (Oxycodone Hcl Immed Release 5 Mg Tablet) 5 mg PO Q4H PRN PRN Reason: Pain, Moderate(Pain Scale 4-6) Last Admin: 08/18/23 13:21 Dose: 5 mg Documented By: KHLOE Oxycodone HCl (Oxycodone Hcl Immed Release 5 Mg Tablet) 10 mg PO Q4H PRN PRN Reason: Pain, Severe (Pain Scale 7-10) Last Admin: 08/19/23 05:06 Dose: 10 mg Documented By: ELÍAS Polyethylene Glycol (Polyethylene Glycol 3350 17 Gm Powd.Pack) 17 gm PO DAILY [facility] Last Admin: 08/20/23 08:19 Dose: 17 gm Documented By: HALEY Sodium Chloride (0.9 % Sodium Chloride Flush 3 Ml Syringe) [facility] Last Admin: 08/20/23 08:19 Dose: 3 ml Documented By: HALEY Labs 08/18/23 09:06 08/18/23 09:06 Procedures Date of Service Date of Service: 08/21/23 Progress Note: A&P Assessment and plan (1) Bile leak: Status: Acute Assessment and Plan: S/P ERCP diert as tolerated possible home if tolerating diet leabe drain in place Time Spent With Patient Time: Total time managing care of this patient today ____ minutes. Quality Stroke Does the patient have a stroke diagnosis?: No VTE Prior VTE?: No VTE Risk Level:: Surgical - moderate VTE Device Contraindication: N/A - Device Ordered VTE Drug Contraindication: N/A - Med Ordered
--- NOTE | 2023-08-20 09:54 | PM.GIPN ---
Subjective Subjective Date of Service: 08/20/23 Interval History: Doing well after ERCP yesterday no abdominal pain no nausea or vomiting eating food passing stool and gas now marked drop in bile o/p from the drain Critical Care Time (minutes): 0 Physical Exam Vital Signs: Vital Signs: Last Vital Signs Temp 97.3 F 08/20/23 07:41 Pulse 65 08/20/23 07:41 Resp 16 08/20/23 07:41 BP 108/56 L 08/20/23 07:41 Pulse Ox 97 08/20/23 07:41 O2 Del Method Room Air 08/20/23 07:41 O2 Flow Rate 4 08/19/23 16:28 BMI result Body Mass Index 36.8 EXAM: GENERAL: The patient is well developed and nontoxic. VITAL SIGNS:see workflow HEENT: Nonicteric sclerae, PERRLA, EOMI. Oropharynx clear. Moist mucous membranes. Conjunctivae appear well perfused. No thyroid mass. CHEST: Chest wall is nontender. HEART: Regular rate and rhythm without murmurs. LUNGS: Clear to auscultation bilaterally. ABDOMEN: Soft, positive bowel sounds, nontender, no organomegaly.no flank tenderness SKIN: No rash, no excessive bruising, petechiae, or purpura. NEUROLOGIC: Cranial nerves II-XII intact without motor/sensory deficit. Psych: Appearance: grossly normal Objective Data Labs 08/18/23 09:06 08/18/23 09:06 Procedures Date of Service Date of Service: 08/20/23 Progress Note: A&P Assessment and plan (1) Bile leak: Status: Acute (2) Choledocholithiasis: Status: Acute Plan 1/ Cholecystectomy with choledocholithiasis and bile leak s/p ERCP -doing well PLAN: 1/ Advance diet as tolerated 2/ back for ERCP in 2 months for stent removal --advised to come back ASPA if any fever, jaundice, change in stool or urine Time Spent With Patient Time: Total time managing care of this patient today ____ minutes. Quality Stroke Does the patient have a stroke diagnosis?: No VTE Prior VTE?: No VTE Risk Level:: Surgical - moderate VTE Device Contraindication: N/A - Device Ordered VTE Drug Contraindication: N/A - Med Ordered
[2023-08-20] MEDS: oxyCODONE HCl Immed Release 5 MG TABLET PO (12:12)
--- NOTE | 2023-08-20 13:17 | MHC.CM.PN ---
EMR REVIEWED- PER SURGICAL NOTE, DIET TO BE ADVANCED WITH POSSIBLE DC TODAY IF TOLERATES. CM WILL CONTINUE TO FOLLOW FOR ANY CHANGE IN DC PLAN/NEEDS.
--- NOTE | 2023-08-20 14:26 | PM.EVENT ---
Event Note Date of Service: 08/20/23 Event Note: She continues to feel well Sitting up on the recliner Seems to be tolerating diet LORENA drain output low Abdomen soft Anicteric sclerae She looks well Reviewed with Dr. Castelan - leak not obvious on ERCP but most likely had a cystic duct stump leak; seems to have improved significantly with stenting and sphincterotomy Possible DC home tomorrow Time Spent With Patient Time: Total time managing care of this patient today ____ minutes.
[2023-08-20 14:27] VITALS: O2SAT 98
[2023-08-20 15:35] VITALS: BP 126/61; PULSE 69; RESP 18; TEMP 36.1; O2SAT 97
[2023-08-20 19:15] VITALS: BP 118/58; PULSE 67; RESP 18; TEMP 36.6; O2SAT 98
[2023-08-21 04:00] VITALS: BP 135/68; PULSE 57; RESP 16; TEMP 36.6; O2SAT 97
[2023-08-21] MEDS: Lactated Ringers 1,000 ML 80 ML IVCONT (04:06)
[2023-08-21] MEDS: Heparin Sodium,Porcine 5,000 UNIT/ML VIAL 5000 UNIT SUBCUT (04:10)
[2023-08-21] MEDS: Levothyroxine Sodium 50 MCG TABLET PO (05:36)
[2023-08-21 06:59] VITALS: BP 108/55; PULSE 70; RESP 16; TEMP 36.6; O2SAT 96
--- NOTE | 2023-08-21 08:08 | PM.PNGS ---
Subjective Subjective Date of Service: 08/21/23 Interval history: Feels well Tolerating diet Very scanty serosanguineous output from the drain Says she is ready to go Physical Exam Vital Signs: Vital Signs: Last Vital Signs Temp 98 F 08/21/23 06:59 Pulse 70 08/21/23 06:59 Resp 16 08/21/23 06:59 BP 108/55 L 08/21/23 06:59 Pulse Ox 96 08/21/23 06:59 O2 Del Method Room Air 08/21/23 06:59 O2 Flow Rate 4 08/19/23 16:28 BMI result Body Mass Index 36.8 Const: Other: Sitting on recliner General: comfortable and no acute distress Resp: Effort & Inspection: normal respiratory effort Cardio: Rate: regular rate GI: Other: Soft, LORENA drain in place, minimal output, nonbilious Incision clean and Objective Data Active Medications Docusate Sodium (Docusate Sodium 100 Mg Capsule) 200 mg PO BID [facility] Last Admin: 08/20/23 20:21 Dose: Not Given Documented By: SHAUNA Non-Admin Reason: Patient Refused Fentanyl (Fentanyl Citrate/Pf 100 Mcg/2 Ml Vial) 25 mcg IVPUSH Q5M PRN; Protocol PRN Reason: Pain, Moderate(Pain Scale 4-6) Heparin Sodium (Porcine) (Heparin Sodium,Porcine 5,000 Unit/Ml Vial) 5,000 unit SUBCUT Q8H [facility] Last Admin: 08/21/23 04:10 Dose: 5,000 unit Documented By: SHAUNA Lactated Ringer's (Lr) 1,000 mls @ 80 mls/hr IVCONT .[id number] [facility] Last Admin: 08/21/23 04:06 Dose: 80 mls/hr Documented By: SHAUNA Promethazine HCl 6.25 mg/ (Sodium Chloride) 50.25 mls @ 201 mls/hr IV ONCE PRN PRN Reason: Nausea and Vomiting Levothyroxine Sodium (Levothyroxine Sodium 50 Mcg Tablet) 50 mcg PO DAILY@0600 [facility] Last Admin: 08/21/23 05:36 Dose: 50 mcg Documented By: SHAUNA Melatonin (Melatonin 3 Mg Tablet) 6 mg PO BEDTIME PRN PRN Reason: Insomnia Morphine Sulfate (Morphine Sulfate 4 Mg/Ml Cartridge) 4 mg IVPUSH Q4H PRN; Protocol PRN Reason: Pain, Severe (Pain Scale 7-10) Last Admin: 08/16/23 05:18 Dose: 4 mg Documented By: SHAUNA Ondansetron HCl (Ondansetron Hcl 4 Mg/2 Ml Vial) 4 mg IVPUSH Q8H PRN PRN Reason: Nausea and Vomiting Ondansetron HCl (Ondansetron Hcl 4 Mg/2 Ml Vial) 4 mg IVPUSH ONCE PRN PRN Reason: Nausea and Vomiting Oxycodone HCl (Oxycodone Hcl Immed Release 5 Mg Tablet) 5 mg PO Q4H PRN PRN Reason: Pain, Moderate(Pain Scale 4-6) Last Admin: 08/20/23 12:12 Dose: 5 mg Documented By: HALEY Oxycodone HCl (Oxycodone Hcl Immed Release 5 Mg Tablet) 10 mg PO Q4H PRN PRN Reason: Pain, Severe (Pain Scale 7-10) Last Admin: 08/19/23 05:06 Dose: 10 mg Documented By: ELÍAS Polyethylene Glycol (Polyethylene Glycol 3350 17 Gm Powd.Pack) 17 gm PO DAILY [facility] Last Admin: 08/20/23 08:19 Dose: 17 gm Documented By: HALEY Sodium Chloride (0.9 % Sodium Chloride Flush 3 Ml Syringe) 3 ml IVFLUSH QSHIFT [facility] Last Admin: 08/21/23 00:12 Dose: Not Given Documented By: SHAUNA Non-Admin Reason: IV Running Labs 08/18/23 09:06 08/18/23 09:06 Procedures Date of Service Date of Service: 08/21/23 Progress Note: A&P Assessment and plan (1) Bile leak: Status: Acute Assessment and Plan: Had bile leak after laparoscopic cholecystectomy ERCP with stenting done; leak not identified on ERCP but likely from cystic duct/neck stump Remnant cystic duct and neck friable from cholecystitis No bilious output from drain since stenting Okay to DC home with drain in place Will see in the office next week to DC drain Instructions explained to patient Time Spent With Patient Time: Total time managing care of this patient today ____ minutes. Quality Stroke Does the patient have a stroke diagnosis?: No VTE Prior VTE?: No VTE Risk Level:: Surgical - moderate VTE Device Contraindication: N/A - Device Ordered VTE Drug Contraindication: N/A - Med Ordered
[2023-08-21] MEDS: 0.9 % Sodium Chloride Flush 3 ML SYRINGE IVFLUSH (08:09)
--- NOTE | 2023-08-21 08:14 | PC.NURSE ---
Pt to be discharged home today with LORENA drain . pt instructed on care of drain how to empty , need to record out put and reasons and concerns to call Md . Pt able to demonstrate and reports she comfortable caring for drain at home
--- NOTE | 2023-08-21 09:38 | MHC.CM.PN ---
EMR reviewed. Patient is medically cleared for dc. Will dc with LORENA drain in place. Per RN patient has received education and is able to self manage the drain, which will be removed at f/u appt next week. Surgical PA aware. No VNA needed. Spoke with patient who states she is comfortable with this plan. will provide transportation at noon time. IMM delivered.
--- NOTE | 2023-08-29 09:52 | PM.DS ---
DS: Providers Provider Date of Service: 08/21/23 Date of admission: 08/15/23 11:53 Date of discharge: 08/21/23 Primary care physician: Emmanuel Simms MD Attending physician on admission: Emmanuel Harry Consults: 08/19/23 08:36 Consult to Gastroenterology Routine Consulting Provider: Esmer Castelan Reason for consultation: s/p cholecystectomy, bile leak Has provider been notified: No Attending physician on discharge: Emmanuel Harry DS: Diagnosis Discharge Diagnosis (1) Bile leak: Status: Acute (2) Status post cholecystectomy: Status: Acute DS: Summary Hospital Course Hospital Course: HPI AT ADMISSION: The patient is a 68 year old female with the history of right upper quadrant pain and tenderness with note of multiple gallstones. I had actually seen her months ago for her symptomatic gallstones but she had wanted to go on a scheduled cruise to [place] at that time so she put off the surgery. She was scheduled to have the procedure done 3 weeks ago but she says she was sick with flu at that time. In the interim, she has had symptoms which have been occasionally severe. She understood the technique laparoscopic cholecystectomy and open cholecystectomy and now presents for the planned procedure. HOSPITAL COURSE: An attempted laparoscopic cholecystectomy, converted to open cholecystectomy was performed by Dr. Harry on 08/15/23 without complication. The patient tolerated the procedure well and she was admitted to the medical/surgical floor for observation and pain control. She was doing well post op and remained inpatient for pain control. On POD #3 she however developed bilious output from her LORENA and this remained high the following day. GI was therefore consulted for possible ERCP with stent placement. On 08/19/23, endoscopic retrograde cholangiopancreatography with sphincterotomy, stone extraction, stent placement and intra op cholangiography was performed by Dr. Castelan. The patient tolerated the procedure well. The following day, she had no bilious output from her LORENA. She was advanced to a solid diet. The next day, she was tolerating the diet and her abdomen remained benign with nonbilious LORENA output and a clean incision. She felt ready for discharge. She was discharged to home on 08/21/23 in stable condition with the LORENA drain in place. She is to follow up in the office in [address] Harry. She is to follow up with Dr. Castelan in 1 month for stent removal. Status at Discharge Functional status at discharge: independent ambulation Overall status at discharge: patient is progressing back to baseline Time Attestation Discharge coordination time: Less than 30 minutes Quality: Safe Use of Opioids Does Pt have an Active Cancer Diagnosis on the Problem List?: No Quality: Stroke Does the patient have a stroke diagnosis?: No Physical Exam Vital Signs: Vital Signs: Last Vital Signs Temp 98 F 08/21/23 06:59 Pulse 70 08/21/23 06:59 Resp 16 08/21/23 06:59 BP 108/55 L 08/21/23 06:59 Pulse Ox 96 08/21/23 06:59 O2 Del Method Room Air 08/21/23 06:59 O2 Flow Rate 4 08/19/23 16:28 BMI result Body Mass Index 36.8 Const: Orientation/consciousness: patient oriented x3 Resp: Effort & Inspection: normal respiratory effort GI: Other: LORENA in place, nonbilious output Inspection: No distended and Yes incision (clean ) Palpation (GI): Soft to palpation and Tenderness to palpation present (GI) (mild incisional) Skin: General skin exam: no rashes or lesions noted and no jaundice Neuro: General: patient oriented x3 DS: Data Data Completed and Pending Completed studies during hospitalization [Text1]: 08/15/23 11:20 Surgical [PTH] Routine Gallbladder, cholecystectomy: -Subacute on chronic cholecystitis with hemorrhage and necrosis. -Cholelithiasis. Procedures Dilation of Common Bile Duct with Intraluminal Device, Via Natural or Artificial Opening Endoscopic (08/15/23) Extirpation of Matter from Common Bile Duct, Via Natural or Artificial Opening Endoscopic (08/15/23) Inspection of Gallbladder, Percutaneous Endoscopic Approach (08/15/23) Resection of Gallbladder, Open Approach (08/15/23) Discharge Plan Discharge Anticipated Discharge Date/Time: 08/20/23 15:08 Patient Disposition: Home, Self-Care Discharge Diagnosis: s/p cholecystectomy, bile leak Referrals: Esmer Castelan MD [Physician] - 1 Month Emmanuel Harry MD [Physician] - 2 Weeks Discharge Medications: New ibuprofen 600 mg tablet 600 mg PO Q6H PRN (Reason: pain) Qty: 30 0RF oxycodone-acetaminophen [Percocet] 5-325 mg tablet 1 tab PO Q4-6H PRN (Reason: pain) Qty: 25 0RF Rx Instructions: Partial Fill upon patient request. Continued levothyroxine 50 mcg tablet 50 mcg PO DAILY@0600 Discharge Orders: Discharge Order (Routine); Ordered 08/21/23 Ordered By: Alona Charles Diet: Low fat, low cholesterol Activity on Discharge: No heavy lifting Stand Alone Forms: Patient Portal Discharge page Activity Restrictions/Additional Instructions: If the incision area is tender, you may apply an ice pack for short intervals (No more than 20 minutes on, followed by at least 20 minutes off). Do not apply heat. Do not use creams, lotions, or topical antibiotics unless instructed to do so by your surgeon. These can cause infection or allergic reaction. LORENA drain - Empty BID and as needed. Record output. Bring records to office. No lifting more than 20 lbs Okay to shower after 24 hours No strenuous activities Call the office for follow-up in 2 weeks - with Dr. Harry F/u with Dr. Castelan in 1 month for stent removal. Call Your Doctor If: -Your temperature exceeds 101.5? F -You experience excessive pain or swelling -You have an unexpected reaction to medication -You have excessive bleeding -You experience continued vomiting/nausea -Your incision begins to separate -Your incision shows signs of infection such as increased redness, swelling, excessive pain, drainage (light blood or clear fluid is normal) or heat Care Plan Goals: Return to baseline health and resume normal activities following recovery period. Health Concerns: chronic cholecystitis Plan of Treatment: s/p lap attempted converted to open cholecystectomy bile leak s/p ERCP with stent placement f/u in office in [address] Piero CARRILLO drain care, VNA services F/u with Dr. Castelan in 1 month for stent removal Assessment: Improved Discharge Date/Time: 08/21/23 11:40
== END 2023-08-21 11:40 | disposition home or self-care (01) | DRG 415 ==
LOC: HO.S3 13:10 → HO.SSS 08-19 11:07 → HO.S3 08-19 11:07
PROVIDERS: Internal Medicine Gastroenterology; Physician Assistant Surgical; Surgery; Admitting Provider Surgery; PCP Internal Medicine; Visit Provider Surgery
PROC: 0FT44ZZ Resection of Gallbladder, Percutaneous Endoscopic Approach (ICD-10-PCS; CPT 47562; principal; 2023-08-15 09:00)
PROC: 0FC98ZZ Extirpation of Matter from Common Bile Duct, Via Natural or Artificial Opening Endoscopic (ICD-10-PCS; CPT 43260; principal; 2023-08-19 13:30)
DX: K80.65 Calculus of gallbladder and bile duct with chronic cholecystitis with obstruction (principal); K91.89 Other postprocedural complications and disorders of digestive system; E03.9 Hypothyroidism, unspecified; Y83.8 Other surgical procedures as the cause of abnormal reaction of the patient, or of later complication, without mention of misadventure at the time of the procedure; Z79.890 Hormone replacement therapy
CPT/HCPCS: 36415; 71045; 80048; 80076; 85025; 88304; 99024; C1769; C2617; J0131; J1100; J1170; J1610; J1644; J2250; J2270; J2405; J2704; J2795; J3010; J7120; Q9967

== ENCOUNTER → 2023-08-15 11:53 | Outpatient (BNV) | payer MEDICARE, SELFPAY | PROVIDERS: Admitting Provider Surgery; PCP Internal Medicine; Visit Provider Internal Medicine Gastroenterology | DX: K83.9 Disease of biliary tract, unspecified (principal); Z90.49 Acquired absence of other specified parts of digestive tract; K80.20 Calculus of gallbladder without cholecystitis without obstruction | CPT/HCPCS: 43264; 43274; 99222; 99232 ==

== ENCOUNTER 2023-08-28 15:04 | Outpatient (AMB) | payer MEDICARE, SELFPAY ==
--- NOTE | 2023-08-28 15:19 | MHC.OFFVIS ---
Intake Vital Signs 08/28/23 15:24 Weight 192 lb BP 142/65 H Blood Pressure Location Rt brachial Position Sitting Pulse 70 Intake Visit Reasons: S/p lap christy, [facility] [place] follow-up Intake Note: This patient presents for [facility] inpatient follow-up status post laparoscopic cholecystectomy. Patient c/o; reports drainage from LORENA drain has been about 5 mL every 12 hours. 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 She tolerated procedure well. However, she had a bile leak noticed all her LORENA drain on her 2nd postop day so she had to undergo an ERCP with stent placement on 08/19/2022. Her LORENA drain output resolve immediately thereafter. She was discharged on postop day 6. She has been doing well at home. She has good oral intake. She denies any significant pain. She says that the LORENA drain has had practically no output since discharge. [facility] Medical History S/p dental crown Hypothyroidism Morbid obesity Gallstone Surgical History History of loop electrical excision procedure (LEEP) Hx of tubal ligation Hx of colonoscopy Social History Household Members: Spouse Housing: House Are you a primary home care companion to a significant other at home: No Do you presently have visiting nurse or other home services: No Patient Tobacco Use Status: Never used Tobacco service: No Review of Systems Const Denies chills and Denies fever(s) Card Denies chest pain, Denies dyspnea and Denies dyspnea on exertion Resp Denies cough, Denies dyspnea and Denies dyspnea on exertion GI Denies hematochezia and Denies change in bowel habits Denies hematuria Musc Denies back pain and Denies limited range of motion Neuro Denies focal weakness and Denies convulsions Psych Denies depression and Denies mood swings Physical Exam Vital Signs: Last Vital Signs Pulse 70 08/28/23 15:24 BP 142/65 H 08/28/23 15:24 Const General: comfortable and no acute distress Eyes Sclerae: sclerae normal GI Other: Soft, cholecystectomy incision well healed, LORENA drain with very scanty clear output Assessment & Plan Assessment & Plan (1) Gallstone: Code(s): K80.20 - Calculus of gallbladder without cholecystitis without obstruction Plan: Status post open cholecystectomy. She required an ERCP because of bile leak. She has been doing very well since discharge. Her LORENA drain has very scanty clear output. I therefore removed this without difficulty. I advised her to avoid any lifting more than 20 lb for at least 2 more weeks I will see her again in the office in about 1 month. She is scheduled to have the stent removed by Dr. Castelan in October. Coding Level of Care Code Global (95671) Diagnoses Gallstone K80.20
[2023-08-28 15:24] VITALS: BP 142/65; PULSE 70
== END 2023-08-28 15:32 | disposition home or self-care (01) ==
PROVIDERS: PCP Internal Medicine; Visit Provider Surgery
DX: K80.20 Calculus of gallbladder without cholecystitis without obstruction (principal)
CPT/HCPCS: 99024

== ENCOUNTER → 2023-08-28 15:04 | Outpatient (BNVA) | payer MEDICARE, SELFPAY | PROVIDERS: PCP Internal Medicine; Visit Provider Surgery | DX: Z48.815 Encounter for surgical aftercare following surgery on the digestive system (principal); Z98.890 Other specified postprocedural states | CPT/HCPCS: 99212 ==

== ENCOUNTER 2023-09-29 14:02 | Outpatient (AMB) | payer MEDICARE, SELFPAY ==
--- NOTE | 2023-09-29 14:04 | A.OFFVIS_ITS ---
Intake Vital Signs 09/29/23 14:12 Weight 193 lb Intake Visit [facility] Inpatient follow-up Intake Note: This patient presents for a one month post-op follow-up assessment status post laparoscopic cholecystectomy. Pt c/o; reports ? fluid, reports discomfort. 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 She had an ERCP with stenting because of this cystic duct leak. She continues to do well. She has good oral intake. She says she feels well overall. [facility] Medical History S/p dental crown Hypothyroidism Morbid obesity Gallstone Surgical History History of loop electrical excision procedure (LEEP) Hx of tubal ligation Hx of colonoscopy Social History Household Members: Spouse Housing: House Are you a primary health care technician to a significant other at home: No Do you presently have visiting nurse or other home services: No Patient Tobacco Use Status: Never used Tobacco service: No Review of Systems Const Denies chills and Denies fever(s) Card Denies chest pain, Denies dyspnea and Denies dyspnea on exertion Resp Denies cough, Denies dyspnea and Denies dyspnea on exertion GI Denies hematochezia and Denies change in bowel habits Denies hematuria Musc Denies back pain and Denies limited range of motion Neuro Denies focal weakness and Denies convulsions Psych Denies depression and Denies mood swings Physical Exam Const General: comfortable and no acute distress Eyes Sclerae: sclerae normal GI Other: Right subcostal incision from open cholecystectomy well healed Palpation (GI): Soft to palpation, not firm and nontender Assessment & Plan Assessment & Plan (1) Gallstone: Code(s): K80.20 - Calculus of gallbladder without cholecystitis without obstruction Plan: Status post lap christy. She continues to do well. Her incisions are all well healed She has good GI functions and denies any complaints. She is to follow-up with Dr. Castelan for removal of her stent. She can also follow up with me on a p.r.n. basis. Coding Level of Care Code Global (61613) Diagnoses Gallstone K80.20
== END 2023-09-29 14:41 | disposition home or self-care (01) ==
PROVIDERS: PCP Internal Medicine; Visit Provider Surgery
DX: K80.20 Calculus of gallbladder without cholecystitis without obstruction (principal)
CPT/HCPCS: 99024

== ENCOUNTER → 2023-09-29 14:02 | Outpatient (BNVA) | payer MEDICARE, SELFPAY | PROVIDERS: PCP Internal Medicine; Visit Provider Surgery | DX: Z09 Encounter for follow-up examination after completed treatment for conditions other than malignant neoplasm (principal); Z98.890 Other specified postprocedural states | CPT/HCPCS: 99212 ==

== ENCOUNTER 2023-10-02 07:28 | Outpatient (REF) | payer MEDICARE, SELFPAY ==
--- NOTE | ~2023-10-02 | XR_ITS ---
EXAMINATION: XR SHOULDER, LEFT CLINICAL INFORMATION: Right shoulder pain COMPARISON: None available. TECHNIQUE: Two views of the left shoulder. FINDINGS: Visualized portion of the proximal left humerus demonstrate no fracture. Humeral head demonstrates good articulation with the glenoid fossa. There are mild degenerative changes of the glenohumeral joint and mild to moderate degenerative changes of the acromioclavicular joint. Visualized left-sided lung parenchyma and ribs are unremarkable. XR/XR shoulder LT min 2V IMPRESSION: Mild degenerative changes of the left shoulder.
== END 2023-10-02 07:29 | disposition home or self-care (01) ==
LOC: HO.HOSX 07:28
PROVIDERS: Visit Provider Orthopaedic Surgery
DX: M25.512 Pain in left shoulder (principal)
CPT/HCPCS: 73030; 99202

== ENCOUNTER 2023-10-02 08:46 | Outpatient (AMB) | payer MEDICARE, SELFPAY ==
[2023-10-02 09:03] VITALS: BMI 35.3
--- NOTE | 2023-10-02 09:03 | MHC.OFFVIS ---
Intake Vital Signs 10/02/23 09:03 Height 5 ft 2 in Weight 193 lb BMI 35.3 Intake Visit Reasons: Left shoulder pain Intake Note: Isis is a 68 year old Left handed female who presents as a new patient with Left shoulder pain and weakness. The patient describes her pain as sharp in nature. The patient states that she 1st injured her left shoulder approximately 2 years ago when she fell while power washing her house. She then fell again while helping her take a large television down her stairs. By the time she fell directly onto her left shoulder. Since her most recent fall she has had difficulty lifting her left hand above shoulder height. She has done physical therapy exercises which aggravated her pain. She has also tried Tylenol and Aleve which gave her minimal relief. Allergies Sulfa (Sulfonamide Antibiotics) Allergy (Severe, Verified 09/29/23 14:13) Anaphylaxis amoxicillin Allergy (Mild, Verified 09/29/23 14:13) Rash FORMERLY [facility], 1928–1983 Medical History (Updated 10/02/23 @ 09:41 by Justin Johnson MD) S/p dental crown Hypothyroidism Morbid obesity Gallstone Surgical History (Updated 10/02/23 @ 09:12 by Tawnya Vuong CMA) History of cholecystectomy (~07/2023) History of loop electrical excision procedure (LEEP) Hx of tubal ligation Hx of colonoscopy Social History Household Members: Spouse Housing: House Are you a primary respiratory care practitioner to a significant other at home: No Do you presently have visiting nurse or other home services: No Patient Tobacco Use Status: Never used Tobacco service: No Physical Exam Vital Signs: BMI result Body Mass Index 35.3 Const Other: Well-nourished well-developed very friendly female awake alert and oriented x3 in no acute distress Extrem Other: Bilateral upper extremity examination shows good capillary refill, no skin lesions noted, normal sensation light touch Left shoulder examination shows decreased range of motion when compared to her right shoulder, 4/5 strength with supraspinatus testing, positive impingement signs, tenderness over her acromioclavicular joint, no instability Results Reviewed Results Reviewed: X-rays of the patient's left shoulder show severe acromioclavicular joint narrowing, a type 2 acromion, no acute bony abnormalities Assessment & Plan Assessment & Plan (1) Left shoulder pain: Code(s): M25.512 - Pain in left shoulder (2) Left shoulder pain: Code(s): M25.512 - Pain in left shoulder Plan Ms. Good presents with left shoulder pain and weakness most likely due to a full-thickness rotator cuff tear. Thus, I will send the patient for an MRI of her left shoulder for further evaluation. I will see her back once the MRI is completed to discuss the findings and treatment options. She will continue with her range of motion exercises in the meantime to prevent stiffness. Feel free to call me at any time should questions regarding her orthopedic management arise. Thank you very much for asking me to see this very friendly patient. I spent 22 minutes in reviewing the patient's records and imaging studies, seeing the patient and documenting in the medical record. Orders: Orders MR shoulder LT wo con Today M25.512 - Pain in left shoulder Coding Level of Care Code New Pt Level 2 (70248) Diagnoses Left shoulder pain M25.512
== END 2023-10-02 09:41 | disposition home or self-care (01) ==
PROVIDERS: PCP Internal Medicine; Visit Provider Orthopaedic Surgery
DX: M25.512 Pain in left shoulder (principal)
CPT/HCPCS: 99202; 99212

== ENCOUNTER 2023-10-26 12:55 | Outpatient (REF) | payer MEDICARE, SELFPAY ==
--- NOTE | ~2023-10-26 | MR_ITS ---
EXAMINATION: MR SHOULDER WITHOUT CONTRAST, LEFT CLINICAL INFORMATION: Left shoulder pain with lifting. Decreased range of motion. COMPARISON: Left shoulder radiographs dated 10/02/2023. TECHNIQUE: MRI of the shoulder without contrast was performed on a high-field scanner. FINDINGS: ROTATOR CUFF: Tnxygsrv-ge-zqhlzf supraspinatus tendinosis with irregular articular surface and intrasubstance partial tearing measuring approximately 2.1 x 1.6 cm (AP x ML). Probable extension to the bursal surface anteriorly, consistent with a full-thickness component to the tear. Mild supraspinatus muscle atrophy. BICEPS: Intact. CORACOACROMIAL ARCH: The undersurface of the acromion is flat with tiny subacromial spurs. Moderate acromioclavicular osteoarthritis. Fluid within subacromial-subdeltoid bursa, likely indicating a full-thickness component to the rotator cuff tendon tear. LABRUM/CAPSULE: No labral tear. Intact inferior joint capsule. GLENOHUMERAL JOINT/MARROW: Intact articular cartilage. No acute osseous injury. Small glenohumeral joint effusion. MR/MR shoulder LT wo con IMPRESSION: 1. Vrpzxrpw-af-bsxfxy supraspinatus tendinosis with irregular articular surface and intrasubstance partial tearing measuring 2.1 x 1.6 cm (AP x ML). Probable extension to the bursal surface anteriorly, consistent with a full-thickness component to the tear. Mild supraspinatus muscle atrophy. 2. Moderate acromioclavicular osteoarthritis with tiny subacromial spurs. 3. Small glenohumeral joint effusion.
== END 2023-10-26 12:56 | disposition home or self-care (01) ==
LOC: HO.MRI 12:55
PROVIDERS: PCP Internal Medicine; Visit Provider Orthopaedic Surgery
DX: M25.512 Pain in left shoulder (principal)
CPT/HCPCS: 73221

== ENCOUNTER 2023-11-05 08:31 | Outpatient (AMB) | payer MEDICARE, SELFPAY ==
[2023-11-05 08:34] VITALS: BMI 35.3
--- NOTE | 2023-11-05 08:34 | A.OFFVIS_ITS ---
Intake Vital Signs 11/05/23 08:34 Height 5 ft 2 in Weight 193 lb BMI 35.3 Intake Visit Reasons: OV - Left Shoulder MRI Review Intake Note: Isis is a 68 year old Left hand dominate female who presents for her MRI review of her Left shoulder. The patient states that her left shoulder discomfort has improved somewhat since her last visit. She continues with her home stretching program. She has tried Tylenol which gives her mild relief. Allergies Sulfa (Sulfonamide Antibiotics) Allergy (Severe, Verified 11/05/23 08:36) Anaphylaxis amoxicillin Allergy (Mild, Verified 11/05/23 08:36) Rash Medication List - Last Reconciled 11/05/23 by Justin Johnson MD levothyroxine 50 mcg PO DAILY@0600 tramadol 50 mg PO BEDTIME PRN PFSH Medical History (Updated 11/05/23 @ 08:58 by Justin Johnson MD) S/p dental crown Hypothyroidism Morbid obesity Gallstone Surgical History (Updated 10/02/23 @ 09:12 by Tawnya Vuong CMA) History of cholecystectomy (~07/2023) History of loop electrical excision procedure (LEEP) Hx of tubal ligation Hx of colonoscopy Social History (Updated 11/05/23 @ 08:38 by Tawnya Vuong CMA) Household Members: Spouse Housing: House Are you a primary resident care spec to a significant other at home: No Do you presently have visiting nurse or other home services: No Patient Tobacco Use Status: Never used Tobacco service: No Current occupational status: retired Current occupation: Left hand dominate Physical Exam Vital Signs: BMI result Body Mass Index 35.3 Const Other: Well-nourished well-developed very friendly female awake alert and oriented x3 in no acute distress Extrem Other: Bilateral upper extremity examination shows good capillary refill, no skin lesions noted, normal sensation light touch Left shoulder examination shows almost full range of motion when compared to her right shoulder, 4+ out of 5 strength with supraspinatus testing, positive impingement signs, tenderness over her acromioclavicular joint, no instability Assessment & Plan Assessment & Plan (1) Impingement syndrome of left shoulder: Code(s): M75.42 - Impingement syndrome of left shoulder Plan Ms. Good presents with left shoulder pain due to impingement syndrome, acromioclavicular joint arthritis and a partial-thickness rotator cuff tear. I had a lengthy discussion with the patient regarding the treatment options. At this point the patient's symptoms are improving with her range of motion exercises. She wishes to hold off on surgery if at all possible. I agree with this plan. I did give the patient a prescription for tramadol to help with her discomfort. She will contact me prior to her follow-up appointment in 3 months should her symptoms worsen in any way. Feel free to call me at any time should questions regarding her orthopedic management arise. I spent 22 minutes in reviewing the patient's records and imaging studies, seeing the patient and documenting in the medical record. Medications: New tramadol 50 mg PO BEDTIME PRN 30 tabs 0RF pain Coding Level of Care Code Est Pt Level 2 (64604) Diagnoses Impingement syndrome of left shoulder M75.42
== END 2023-11-05 08:56 | disposition home or self-care (01) ==
PROVIDERS: PCP Internal Medicine; Visit Provider Orthopaedic Surgery
DX: M75.42 Impingement syndrome of left shoulder (principal)
CPT/HCPCS: 99213

== ENCOUNTER → 2023-11-05 08:31 | Outpatient (BNVA) | payer MEDICARE, SELFPAY | PROVIDERS: PCP Internal Medicine; Visit Provider Orthopaedic Surgery | DX: M75.42 Impingement syndrome of left shoulder (principal) | CPT/HCPCS: 99212 ==

== ENCOUNTER 2023-11-10 11:22 | Day surgery (SDC) | payer MEDICARE, SELFPAY ==
[2023-11-06 11:29] VITALS: BMI 36.8
--- NOTE | 2023-11-07 10:30 | HO.ANESPROP2 ---
Documented by User: Soheila Griffith NP 11/07/23 10:31 HPI - Anesthesia Eval Consult details Narrative: 68yo F for ERCP with fluoroscopy with possible stent removal s/p same 08/2023 with GA-ETT 7 PMFSH Active Problems Active Problems: All Active Problems (Updated 11/05/23 @ 08:58 by Justin Johnson MD) Impingement syndrome of left shoulder (Acute) Left shoulder pain (Acute) Right shoulder pain (Acute) Morbid obesity (Acute) Gallstone (Acute) Past Medical History Medical History (Updated 11/05/23 @ 08:58 by Justin Johnson MD) S/p dental crown Hypothyroidism Morbid obesity Gallstone Family History Family history of problems with anesthesia: No Surgical History Surgical History (Updated 11/06/23 @ 11:26 by Lila Key RN) History of ERCP History of cholecystectomy (~07/2023) History of loop electrical excision procedure (LEEP) Hx of tubal ligation Hx of colonoscopy History of Problems with Anesthesia: No Social History Social History (Updated 11/05/23 @ 08:38 by Tawnya Vuong CMA) Household Members: Spouse Housing: House Are you a primary career development engineer to a significant other at home: No Do you presently have visiting nurse or other home services: No Patient Tobacco Use Status: Never used Tobacco Use of substances other than those prescribed or required for medical reasons: No Are you DNR?: No Advance Directives: No Advance Directives Information Provided: Yes service: No Current occupational status: retired Current occupation: Left hand dominate Meds Allergies Allergy/AdvReac Type Severity Reaction Status Date / Time Sulfa (Sulfonamide Allergy Severe Anaphylaxis Verified 11/05/23 08:36 Antibiotics) amoxicillin Allergy Mild Rash Verified 11/05/23 08:36 Home Medications Medication Instructions Recorded Confirmed Last Taken Type levothyroxine 50 mcg tablet 50 mcg PO DAILY@0600 06/18/23 11/06/23 11/10/23 History Exam Height,Weight and Vital Signs: Height 5 ft 2 in Weight 91.172 kg Pertinent Lab Results Pertinent Lab Results: Laboratory Tests 08/16/23 08/18/23 06:19 09:06 WBC 13.2 H 9.2 RBC 4.17 L 4.34 Hgb 12.0 12.5 Hct 36.6 L 38.8 MCV 87.8 89.4 MCH 28.8 28.8 MCHC 32.8 32.2 RDW 13.4 13.4 Plt Count 200 207 MPV 9.7 9.2 L Immature Gran % (Auto) 0.4 0.3 Neut % (Auto) 72.8 58.5 Lymph % (Auto) 18.9 L 26.0 [place] % (Auto) 7.3 7.4 Eos % (Auto) 0.2 7.0 H Baso % (Auto) 0.4 0.8 Lymph # (Auto) 2.5 2.4 [place] # (Auto) 1.0 0.7 Eos # (Auto) 0.0 0.6 H Baso # (Auto) 0.1 0.1 Abs Immat Gran (auto) 0.05 H 0.03 Absolute Neuts (auto) 9.6 H 5.4 Absolute Nucleated RBC 0.000 0.000 Nucleated RBC % (auto) 0.0 0.0 Sodium 141 Potassium 4.2 Chloride 106 Carbon Dioxide 27 Anion Gap 12 BUN 8 L Creatinine 0.75 Estim Creat Clear Calc 74.3 Estimated GFR > 60 Random Glucose 125 H Calcium 9.3 Total Bilirubin 0.9 Direct Bilirubin 0.5 AST 30 ALT 30 Alkaline Phosphatase 74 Total Protein 6.6 Albumin 3.5 Assessment and Plan Assessment Anesthesia Assessment: Chart Reviewed Final Anesthetic Review Family History of Problems with Anesthesia: No History of Problems with Anesthesia: No Documented by User: Jane Flores MD 11/10/23 12:41 [facility] Past Medical History Medical History (Updated 11/05/23 @ 08:58 by Justin Johnson MD) S/p dental crown Hypothyroidism Morbid obesity Gallstone Surgical History Surgical History (Updated 11/06/23 @ 11:26 by Lila Key RN) History of ERCP History of cholecystectomy (~07/2023) History of loop electrical excision procedure (LEEP) Hx of tubal ligation Hx of colonoscopy Social History Social History (Updated 11/05/23 @ 08:38 by Tawnya Vuong CMA) Household Members: Spouse Housing: House Are you a primary career development engineer to a significant other at home: No Do you presently have visiting nurse or other home services: No Patient Tobacco Use Status: Never used Tobacco Use of substances other than those prescribed or required for medical reasons: No Are you DNR?: No Advance Directives: No Advance Directives Information Provided: Yes service: No Current occupational status: retired Current occupation: Left hand dominate Meds Allergies Allergy/AdvReac Type Severity Reaction Status Date / Time Sulfa (Sulfonamide Allergy Severe Anaphylaxis Verified 11/05/23 08:36 Antibiotics) amoxicillin Allergy Mild Rash Verified 11/05/23 08:36 Home Medications Medication Instructions Recorded Confirmed Last Taken Type levothyroxine 50 mcg tablet 50 mcg PO DAILY@0600 06/18/23 11/06/23 11/10/23 History Exam Airway Mallampati Class: II TM Dist: >3cm Neck ROM: Full Heart: rrr Lungs: cta Assessment and Plan Assessment Anesthesia Assessment: Anesthesia Plan Discussed Final Anesthetic Review NPO: Yes ASA Class: II Final Preanesthetic Review: No Changes in Pt Med Stat, Meds/Allgs Chart Reviewed and Consent Obtained/Reviewed Patient Risk: Intermediate Procedure Risk: Intermediate Anesthetic Plan Anesthetic Plan: GA Disposition: Standard PACU
--- NOTE | ~2023-11-10 | FL_ITS ---
EXAMINATION: XR FLUOROSCOPY WITH IMAGES CLINICAL INFORMATION: Stent removal COMPARISON: None available. TECHNIQUE: Fluoroscopy Supervised By: Dr. Esmer Castelan. Fluoroscopy Time: 0.4. Cumulative Dose: 10.3 mGy. DAP: 2.8 Gycm2. Images: 6. FL/FL guidance in OR FINDINGS/IMPRESSION: Fluoroscopic images provided during ERCP. Initially, common bile duct stent is noted in place. After removal and contrast injection, CBD is opacified without intrahepatic biliary ductal dilation.
[2023-11-10 11:55] VITALS: BMI 35.3
[2023-11-10 11:57] VITALS: BP 118/68; PULSE 76; RESP 18; TEMP 37.4; O2SAT 98
[2023-11-10] MEDS: Lactated Ringers 1,000 ML 100 ML IVCONT (12:37)
--- NOTE | 2023-11-10 12:55 | P.HPSUR_ITS ---
Pre-Procedural Eval Section A - 24 Hr Update-Section A only Date of Service: 11/10/23 Section B - Complete if H&P > 30 days Chief Complaint: Calculus of bile duct with cholecystitis, unspecif Relevant Family History (Specify if Yes): No Relevant Social History: None Present Medications: see Short Stay Collaborative assessment Medical History: Significant History ( S/p dental crown Hypothyroidism Morbid obesity Gallstone) History of Previous Operations: Relevant previous surgery/procedure and date(s) (History of ERCP History of cholecystectomy (~07/2023) History of loop elect rical excision procedure (LEEP) Hx of tubal ligation Hx of colonoscopy) Allergies: Allergies Allergy/AdvReac Type Severity Reaction Status Date / Time Sulfa (Sulfonamide Allergy Severe Anaphylaxis Verified 11/05/23 08:36 Antibiotics) amoxicillin Allergy Mild Rash Verified 11/05/23 08:36 Review of Systems Sugical H&P ROS: Negative: Constitution, Cardiovascular, Respiratory, Neurological, Psychiatric, Hem-Onc, Allergic/Immunologic, Gastrointestinal, Genitourinary, Musculoskeletal, Integumentary, Endocrine and Eyes/Ears/Nose/Throat Exam Surgical H&P Exam: Normal: HEENT, Normal: Heart, Normal: Lungs, Normal: Extremities, Normal: Abdomen, Normal: Skin and Normal: Neurological Plan Diagnosis/Plan: Unchanged I have reviewed the history and physical and performed a pertinent physical examination on my patient. No changes have occurred unless specified. Time Spent With Patient Time: Total time managing care of this patient today ____ minutes.
[2023-11-10 14:07] VITALS: BP 158/86; PULSE 79; RESP 12; TEMP 36.3
--- NOTE | 2023-11-10 14:08 | W.PM.OPN ---
Operative Note Operative Note Date of Service: 11/10/23 Narrative: Description:?Endoscopic retrograde cholangiopancreatography (ERCP) PROCEDURE:?Endoscopic retrograde cholangiopancreatography with intraop cholangiogram and interpretation INDICATION FOR THE PROCEDURE:?Patient with a history of stent placement for bile leak s/p cholecystectomy, now here for cholangiogram and stent removal MEDICATIONS:?General anesthesia. The risks of the procedure were made aware to the patient and consisted of medication reaction, bleeding, perforation, aspiration, and post ERCP pancreatitis. DESCRIPTION OF PROCEDURE:?After informed consent and appropriate sedation, the duodenoscope was inserted into the oropharynx, down the esophagus, and into the stomach. The scope was then advanced through the pylorus to the ampulla. The stent was seen protruding from the ampulla. It was grasped with a snare and then removed successfully. A 12 mm extraction balloon was then inserted into the duct and an occlusion cholangiogram was performed. No filling defects or leaks were seen. The balloon was swept down the duct and again no debris or stone noted. There was good drainage from the bile duct . FINDINGS: 1. Stent removal, no leaks on cholangiogram RECOMMENDATIONS: 1. clears today and then advance diet tomorrow 2. If any worsening abdominal pain, fever, jaundice etc, come to ED [facility]
[2023-11-10 14:12] VITALS: BP 148/79; PULSE 74; RESP 14; O2SAT 100
[2023-11-10 14:17] VITALS: BP 140/77; PULSE 70; RESP 16; O2SAT 100
[2023-11-10 14:22] VITALS: BP 134/80; PULSE 70; RESP 16; O2SAT 100
[2023-11-10 14:37] VITALS: BP 141/81; PULSE 61; RESP 16; TEMP 36.6; O2SAT 100
== END 2023-11-10 15:00 | disposition home or self-care (01) ==
PROVIDERS: PCP Internal Medicine; Visit Provider Internal Medicine Gastroenterology
PROC: (CPT 43260; principal; 2023-11-10 13:00)
DX: K80.40 Calculus of bile duct with cholecystitis, unspecified, without obstruction (principal); E03.9 Hypothyroidism, unspecified; E66.01 Morbid (severe) obesity due to excess calories; Z68.36 Body mass index [BMI] 36.0-36.9, adult; Z79.899 Other long term (current) drug therapy; Z88.1 Allergy status to other antibiotic agents; Z88.2 Allergy status to sulfonamides; Z90.49 Acquired absence of other specified parts of digestive tract
CPT/HCPCS: 43275; J1100; J2250; J2405; J2704; J3010; Q9967

== ENCOUNTER → 2023-11-10 11:22 | Outpatient (BNV) | payer MEDICARE, SELFPAY | PROVIDERS: PCP Internal Medicine; Visit Provider Internal Medicine Gastroenterology | DX: K80.40 Calculus of bile duct with cholecystitis, unspecified, without obstruction (principal); Z45.82 Encounter for adjustment or removal of myringotomy device (stent) (tube) | CPT/HCPCS: 43275 ==

== ENCOUNTER 2024-02-05 13:09 | Outpatient (AMB) | payer MEDICARE, SELFPAY ==
[2024-02-05 13:11] VITALS: BMI 35.1
--- NOTE | 2024-02-05 13:11 | A.OFFVIS_ITS ---
Vital Signs 02/05/24 13:11 Height 5 ft 2 in Weight 192 lb BMI 35.1 Intake Visit Reasons: OV - Left Shoulder- follow up Intake Note: Isis is a 68 year old Left handed female who presents with Left shoulder pain and weakness. The patient describes her pain as sharp in nature. The patient states that she 1st injured her left shoulder approximately 2 years ago when she fell while power washing her house. She then fell again while helping her take a large television down her stairs. By the time she fell directly onto her left shoulder. Since her most recent fall she has had difficulty lifting her left hand above shoulder height. She has done physical therapy exercises which aggravated her pain. She has also tried Tylenol and Aleve which gave her minimal relief. The patient states that she recently underwent a hysterectomy for treatment of a recently diagnosed malignancy. Allergies Sulfa (Sulfonamide Antibiotics) Allergy (Severe, Verified 02/05/24 13:11) Anaphylaxis amoxicillin Allergy (Mild, Verified 02/05/24 13:11) Rash Medication List - Last Reconciled 02/06/24 by Justin Johnson MD levothyroxine 50 mcg PO DAILY@0600 [facility] Medical History (Updated 11/05/23 @ 08:58 by Justin Johnson MD) S/p dental crown Hypothyroidism Morbid obesity Gallstone Surgical History (Updated 11/06/23 @ 11:26 by Lila Key RN) History of ERCP History of cholecystectomy (~07/2023) History of loop electrical excision procedure (LEEP) Hx of tubal ligation Hx of colonoscopy Social History (Updated 11/05/23 @ 08:38 by Tawnya Vuong CMA) Household Members: Spouse Housing: House Are you a primary career representative to a significant other at home: No Do you presently have visiting nurse or other home services: No Patient Tobacco Use Status: Never used Tobacco service: No Current occupational status: retired Current occupation: Left hand dominate Physical Exam Vital Signs: BMI result Body Mass Index 35.1 Const Other: Well-nourished well-developed very friendly female awake alert and oriented x3 in no acute distress Extrem Other: Bilateral upper extremity examination shows good capillary refill, no skin lesions noted, normal sensation light touch Left shoulder examination shows decreased range of motion when compared to her right shoulder, 4/5 strength with supraspinatus testing, positive impingement signs, no instability Results Reviewed Results Reviewed: MRI of the patient's left shoulder show severe acromioclavicular joint narrowing, a type 2 acromion, a full-thickness rotator cuff tear Assessment & Plan Assessment & Plan (1) Left shoulder pain: Code(s): M25.512 - Pain in left shoulder Category: Medical Plan Ms. Good presents with progressively worsening left shoulder pain and weakness due to impingement syndrome, acromioclavicular joint arthritis and a full-t hickness rotator cuff tear. I had a lengthy discussion with the patient regarding the treatment options. At this point she appears to be failing continued non operative treatments. The risks and benefits of left shoulder surgery were discussed at length with the patient. The patient is interested in proceeding with surgery later this year. She will contact my office to pick a surgery date when she chooses to do so. Surgery will involve left shoulder diagnostic arthroscopy with distal clavicle excision, acromioplasty and rotator cuff repair. The patient will continue with her range of motion exercises in the meantime to prevent stiffness. Feel free to call me at any time should questions regarding her orthopedic management arise. I spent 22 minutes in reviewing the patient's records and imaging studies, seeing the patient and documenting in the medical record. Coding Level of Care Code Est Pt Level 3 (46837) Diagnoses Left shoulder pain M25.512
== END 2024-02-05 13:43 | disposition home or self-care (01) ==
PROVIDERS: PCP Internal Medicine; Visit Provider Orthopaedic Surgery
DX: M25.512 Pain in left shoulder (principal)
CPT/HCPCS: 99214

== ENCOUNTER → 2024-02-05 13:09 | Outpatient (BNVA) | payer MEDICARE, SELFPAY | PROVIDERS: PCP Internal Medicine; Visit Provider Orthopaedic Surgery | DX: M25.512 Pain in left shoulder (principal) | CPT/HCPCS: 99212 ==

== ENCOUNTER 2024-03-18 14:37 | Outpatient (REF) | payer MEDICARE, SELFPAY ==
[2024-03-18 16:00] LABS: MANUAL DIFF FLAG NO
[2024-03-18 16:06] LABS: Basophils Absolute Auto 0.1 X10*3/uL (0.0-0.2); Basophils Percent Auto 0.8 % (0-2); Eosinophils Absolute Auto 0.3 X10*3/uL (0.0-0.4); Eosinophils Percent Auto 4.5 % (0-4); Hematocrit 37.4 % (37.0-47.0); Imm Gran Abs Auto 0.01 X10*3/uL (0.00-0.03); Imm Gran Pct Auto 0.1 % (0.0-0.4); Lymphocytes Percent Auto 26.7 % (20-40); Mean Corpuscular HGB Conc 32.1 g/dl (31.0-35.0); Mean Corpuscular Hemoglobin 27.8 pg (27.0-33.0); Mean Corpuscular Volume 86.6 fL (80.0-98.0); Mean Platelet Volume 9.5 fL (9.4-12.3); Monocytes Absolute Auto 0.6 X10*3/uL (0.1-1.2); Neutrophils Absolute Auto 4.5 x10*3/uL (2.0-8.3); Neutrophils Percent Auto 59.9 % (45-73); Platelet Count 276 X10*3/uL (160-400); Red Blood Count 4.32 X10*6/uL (4.20-5.50); Red Cell Distribution Width 12.6 % (11.0-16.0); White Blood Count 7.5 X10*3/uL (4.8-10.8)
[2024-03-18 16:24] LABS: Alanine Aminotransferase 10 U/L (0-31); Albumin Level 3.9 g/dL (3.5-5.0); Alkaline Phosphatase 79 U/L (39-117); Anion Gap 11 (12-20); Aspartate Amino Transferase 16 U/L (5-31); Bilirubin Total 0.3 mg/dL (0.0-1.0); Blood Urea Nitrogen 20 mg/dL (9-16); Calcium 9.2 mg/dL (8.4-10.2); Carbon Dioxide 25 mmol/L (22-29); Chloride 110 mmol/L (96-108); Cholesterol 162 mg/dL (<200); Estimated Glomerular Filt Rate 54; Glucose Random 119 mg/dL (60-115); Potassium 4.3 mmol/L (3.3-5.1); Sodium 142 mmol/L (135-145); Total Protein 6.8 g/dL (6.5-8.0)
[2024-03-18 16:41] LABS: Estimated Average Glucose 105 mg/dL; Hemoglobin A1c % 5.3 % (<6.0)
[2024-03-18 16:42] LABS: Free T4 (Free Thyroxine) 1.16 ng/dL (0.71-1.85)
== END 2024-03-18 14:38 | disposition home or self-care (01) ==
LOC: HO.HMGCLDS 14:37
PROVIDERS: PCP Internal Medicine; Visit Provider Internal Medicine
DX: R73.03 Prediabetes (principal); E03.9 Hypothyroidism, unspecified
CPT/HCPCS: 36415; 80053; 82465; 83036; 84439; 84443; 85025

== ENCOUNTER 2024-07-29 13:23 | Outpatient (REF) | payer MEDICARE, SELFPAY | END 2024-07-29 13:24 | disposition home or self-care (01) | LOC: HO.MAMMO 13:23 | PROVIDERS: PCP Internal Medicine; Visit Provider Internal Medicine | DX: Z12.31 Encounter for screening mammogram for malignant neoplasm of breast (principal) | CPT/HCPCS: 77063; 77067 ==

== ENCOUNTER → 2024-07-29 13:30 | Outpatient (BNV) | payer MEDICARE, SELFPAY | PROVIDERS: PCP Internal Medicine; Visit Provider Internal Medicine | DX: Z12.31 Encounter for screening mammogram for malignant neoplasm of breast (principal) | CPT/HCPCS: 77063; 77067 ==

== ENCOUNTER 2025-01-03 13:20 | Outpatient (AMB) | payer MEDICARE, SELFPAY ==
[2025-01-03 13:00] VITALS: BP 138/90; PULSE 97; TEMP 36.8; O2SAT 99; BMI 35.8
--- NOTE | 2025-01-03 13:00 | MHC.PC.OV ---
Vital Signs 01/03/25 13:00 Height 5 ft 2 in Weight 196 lb BMI 35.8 BP 138/90 H Blood Pressure Location Lt brachial Position Sitting Pulse 97 Pulse Source Pulse Oximeter Temp 98.3 F Temp Source Axillary Pulse Oximetry (%) 99 Oxygen Delivery Method Room Air Intake Visit Reasons: Routine Commercial Fisher Required: No Accompanied by: Self / Same As Patient Allergies Sulfa (Sulfonamide Antibiotics) Allergy (Severe, Verified 01/03/25 13:39) Anaphylaxis amoxicillin Allergy (Mild, Verified 01/03/25 13:39) Rash Medication List - Last Reconciled 01/03/25 by Denis Pagan MD levothyroxine 50 mcg PO DAILY@0600 solifenacin 5 mg PO DAILY Tobacco use date assessed: 01/03/25 Fall risk assessment: No Falls in past year Last assessed Fall Risk: 01/03/25 Dental Screening Dental Screen Date: 01/03/25 Did you have a dental visit in the last 12 months?: Yes Did you have a dental problem in the last 6 months where you did not have access to dental care?: No [facility] Medical History (Updated 01/03/25 @ 13:39 by Denis Pagan MD) S/p dental crown Hypothyroidism Morbid obesity Gallstone Surgical History History of ERCP History of cholecystectomy (~07/2023) History of loop electrical excision procedure (LEEP) Hx of tubal ligation Hx of colonoscopy (~06/25/21) Family History Mother No problems noted. Father No problems noted. Social History Household Members: Spouse Housing: House Are you a primary nonfarm animal caretaker to a significant other at home: No Do you presently have visiting nurse or other home services: No Patient Tobacco Use Status: Never used Tobacco e-Cigarette/Vaping Use: Never Used service: No Current occupational status: retired Current occupation: Left hand dominate Cognitive needs: No Hearing needs: No Vision needs: No Questionnaire PHQ-9 Over the last 2 weeks, how often have you been bothered by any of the following problems? 1. Little interest or pleasure in doing things: not at all 2. Feeling down, depressed, or hopeless: not at all 3. Trouble falling or staying asleep, or sleeping too much: not at all 4. Feeling tired or having little energy: not at all 5. Poor appetite or overeating: not at all 6. Feeling bad about yourself - or that you are a failure or have let yourself or your family down: not at all 7. Trouble concentrating on things, such as reading the newspaper or watching television: not at all 8. Moving or speaking so slowly that other people could have noticed. Or the opposite - being so fidgety or restless that you have been moving around a lot more than usual: not at all 9. Thoughts that you would be better off or of hurting yourself in some way: not at all Total score: 0 Depression Screening Interpretation: Negative Depression Screening Done: Yes Source: Developed by Drs. Gerardo Gee, Akua Boyer, Manuel Herring and colleagues, with an educational maya from [email or web address]. Thrive Questionnaire Date Thrive assessed: 01/03/25 I am a: Patient Within the past 12 months, did the food you bought not last and you didn't have the money to get more?: Never true Within the past 12 months, did you worry whether your food would run out before you got money to buy more?: Never true Do you have trouble paying for medicines?: No Do you have trouble getting transportation to medical appointments?: No Do you have trouble paying your heating and electricity bill?: No Do you have trouble taking care of your child, family member or friend?: No Do you have trouble with day-to-day activities such as bathing, preparing meals, shopping, managing finances, etc.?: No Are you currently unemployed and looking for a job?: No Are you interested in more education?: No Currently or been in a relationship where the following occur: No concerns reported THRIVE Score: 0 AUDIT C Alcohol Use Questionnaire (AUDIT-C) 1. How often do you have a drink containing alcohol?: Monthly or less 2. How many drinks containing alcohol do you have on a typical day when you are drinking?: 1 or 2 3. How often do you have six or more drinks on one occasion?: Less than monthly Total Score: 2 DEBBIE-7 AMB Questionnaire DEBBIE-7 Date DEBIBE - 7 assessed: 01/03/25 Feeling nervous, anxious, or on edge: 0 = Not at all Not being able to stop or control worryin = Not at all Worrying too much about different things: 0 = Not at all Trouble relaxin = Not at all Being so restless that it is hard to sit still: 0 = Not at all Becoming easily annoyed or irritable: 0 = Not at all Feeling afraid as if something awful might happen: 0 = Not at all Total DEBBIE-7 score (0-4 normal; 5-9 mild; 10-14 moderate; 15-21 severe): 0 Source: Developed by Drs. Gerardo Gee, Akua Boyer, Manuel Herring and colleagues, with an educational maya from [email or web address]. Physical exam (Primary Care) Vital Signs: Last Vital Signs Temp 98.3 F 01/03/25 13:00 Pulse 97 01/03/25 13:00 BP 138/90 H 01/03/25 13:00 Pulse Ox 99 01/03/25 13:00 Oxygen Delivery Method Room Air 01/03/25 13:00 Care Plan Goal for BP management: BP is in range BMI result Body Mass Index 35.8 BMI Assessment/Plan discussion: High (One pound per week weight loss suggested) BMI High, discussed plan: lifestyle, weight reduction and dietary Tobacco/Smoking Status: Tobacco use Status Tobacco use date assessed 01/03/25 01/03/25 13:04 Patient Tobacco Use Status Never used Tobacco 01/03/25 13:02 e-Cigarette/Vaping Use Never Used 01/03/25 13:04 PHQ-9: PHQ-9 Score PHQ-9: Total score 0 01/03/25 13:28 Depression Screening Interpretation: Negative Thrive Assessment: Date of Thrive Assessment Date Thrive assessed 01/03/25 01/03/25 13:04 Currently or been in a relationship where the following occur: No concerns reported Advance Care Planning discussion: Exists, not on file Date of discussion: 01/03/25 Who was present: Patient Forms completed: Health Care Proxy Actual minutes spent: 5 Coding Level of Care Code New Pt Level 4 (89067) Complex EM visit Add On G2211 Diagnoses Hypothyroidism E03.9 Additional Codes Vital Signs *Quality* - Advance Care Planning discussion: Exists, not on file ([id number]) Assessment & Plan Assessment & Plan (1) Hypothyroidism: Code(s): E03.9 - Hypothyroidism, unspecified Category: Medical Plan: BW ordered. Will adjust synthroid dose accordingly. Plan History of Present Illness The patient is a 69-year-old female presenting with ear bleeding. She noticed the bleeding when cleaning her ear in the morning, with blood observed on the cleaning implement. It was unexpected and occurred without associated pain. The patient recently had cataract surgery and is in the process of adjusting to its effects. She also had a hysterectomy the previous year and is scheduled for a follow-up visit in February. She is on medication for hypothyroidism, with her last thyroid function test occurring around a year ago. 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 - Living situation: Resides with her . - Ability to perform activities: Capable of driving, although she avoids night driving. - Health care decision-making: Has a healthcare proxy in place. Review of Systems - Ears: Reports ear bleeding, denies pain. - Eyes: Recent cataract surgery, still adjusting. - Endocrine: Denies issues, taking thyroid medication. - Gastrointestinal/Gynecological: Status post-hysterectomy, planning follow-up. Up to date on mammogram and colonoscopy. Physical Exam General: Cooperative and healthy appearing Nutritional Appearance: Well nourished Orientation/consciousness: Patient oriented x3 Limitations: No limitations Head: Normal to inspection General: Appearance normal, both eyes and all related structures Neck: Normal visual inspection Chest: Normal palpation of entire chest wall Respiratory: Normal respiratory effort Neurology: Patient oriented x3 Results Plan 1. Ear Bleeding - Advised to avoid cleaning the ear to allow for healing. - Monitoring for any issues. 2. Hypothyroidism - Routine blood work for thyroid function ordered. - Pharmacy refill discussions noted for ease of medication management. 3. Status Post-Cataract Surgery - Post-operative recovery observed. - No additional measures required at this time. 4. Status Post-Hysterectomy - Follow-up scheduled for February. - No immediate actions necessary. Discussion Notes During this visit, we discussed the patient's experience of ear bleeding, which appeared to be due to a small cut in the ear canal. I emphasized the importance of allowing the area to heal by avoiding cleaning in the near term. We reviewed the patient?s ongoing hypothyroidism management and agreed on ordering updated thyroid blood work, given that the last assessment was a year ago. For her status post-cataract surgery, I acknowledged her current stage of adjustment and reiterated that no additional follow-up is necessary unless she experiences further visual issues. As she prepares for her scheduled follow-up post-hysterectomy, I reassured her of good health maintenance, reflecting on her up-to-date mammogram and colonoscopy. Future medication renewal processes were outlined for convenience and continuity of care. Patient Instructions - Avoid cleaning your ear for a few days to let it heal. - Keep an eye on any changes or worsening symptoms in your ear. - Prepare for your thyroid blood work and ensure medication supplies until April. - Addison your calendar for the hysterectomy follow-up appointment in February. - Reach out if issues arise or for clarification on health proxies or other concerns. Orders: Orders Basic Metabolic Panel Today E03.9 - Hypothyroidism, unspecified Thyroid Stimulating Hormone Today E03.9 - Hypothyroidism, unspecified UA and rflx microscopic Today E03.9 - Hypothyroidism, unspecified Complete Blood Count no Diff Today E03.9 - Hypothyroidism, unspecified Liver Panel Today E03.9 - Hypothyroidism, unspecified Lipid Panel Today E03.9 - Hypothyroidism, unspecified
--- OUTSIDE RECORDS SUMMARY | 2025-01-03 13:24 | XMS_ITS | Clinical Summary ---
Author Organization [facility] Address [address] [place] [address] Phone Care Team Providers Care Parking Meter Collector Name Role Phone Emmanuel Simms MD Primary Care Provider [phone] Allergies Active Allergy Reactions Criticality Noted Date Comments Amoxicillin Dermatitis,Rash 11/20/2023 Sulfa (Sulfonamide Antibiotics) Anaphylaxis High 11/2023 Sulfa Drugs Medications levothyroxine (SYNTHROID, LEVOTHROID) 50 mcg tablet Take 1 Tablet by mouth daily. Active clindamycin-benzoy l peroxide (DUAC) 1.2-5% gel APPLY EVERY MORNING TO ACNE ON FACE 5 Active solifenacin (VESICARE) 5 mg tabletIndications: bladder hyperactivity Take 1 tablet (5 mg total) by mouth 1 (one) time each day. Swallow tablet whole; do not crush, chew, or split. 30 tablet 2 5 02/14/20 25 Active Active Problems Problem Noted Date Diagnosed Date Cervical cancer ([facility]/HCC V24, [facility]/HCC V28) 02/02 Hypothyroidism 11/20/2023 Encounters Date Type Department Care Team Description 11/15/2024 2:00 PM EDT Office Visit Urogynecology [address] [phone] Aida Gustafson MD OAB (overactive bladder) (Primary Dx); Mixed stress and urge urinary incontinence; Stress incontinence from Last 3 Months Surgical History Surgery Date Site/Laterality Comments HYSTERECTOMY OOPHORECTOMY TUBAL LIGATION Medical History Medical History Date Comments Abnormal Pap smear of cervix Cervical cancer ([facility] V24, [facility] V28) Social History Tobacco Use Types Packs/Day Years Used Date Smoking Tobacco: Never Assessed Comments Unknown Sex and Gender Information Value Date Recorded Sex Assigned at Not on file Legal Sex Female 9:27 PM EST Gender Identity Not on file Sexual Orientation Not on file Obstetrics History Last Filed Vital Signs Vital Sign Reading Time Taken Comments Blood Pressure 136/88 11/15/2024 2:13 PM EDT Pulse 81 11/15/2024 2:13 PM EDT Temperature 36.3 ??C (97.3 ??F) 09/14/2024 1:11 PM ES T Respiratory Rate - - Oxygen Saturation - - Inhaled Oxygen Concentration - - Weight 88.5 kg (195 lb) 11/15/2024 2:13 PM EDT Height 157.5 cm (5' 2 ) 11/15/2024 2:13 PM EDT Body Mass Index 35.67 11/15/2024 2:13 PM EDT Plan of Treatment Upcoming Encounters Date Type Department Care Team (Late st Contact Info) Description 02/10/2025 2:00 PM EDT Treatment Pelvic Floor Rehabilitation [address] [phone] Rica Soto, PT [address] [facility] [address] [place] [address] 03/15/2025 11:00 AM EDT Office Visit [facility] [place] [address] [place] [phone] Patti Bray MD [address] [place] [address] Health Maintenance Due Date Last Done Comments Breast Cancer Screening 1955 DTaP,Tdap,and Td Vaccines (1 - Tdap) 1973 Pneumococcal Vaccine: 50+ Years (1 of 2 - PCV) 1973 Zoster Vaccines (1 of 2) 1973 Cholesterol Screening (Lipid Panel) 03/16/2024 Colorectal Cancer Screening: Colonoscopy 03/16/2024 Depression Screening 03/16/2024 Falls Risk Assessment 03/16/2024 Hepatitis C Screening 03/16/2024 Medicare Annual Wellness Visit 03/16/2024 Osteoporosis Screening (Bone Density Screening) 03/16/2024 Social Influencers of Health Screening 03/16/2024 Hypertension/CHF/CAD Annual BMP Blood Test 09/14/2024 COVID-19 Vaccine (7 - Mixed Product risk season) 2024 06/25/2024, 06/13/2023, 06/22/2022, Additional history exists RSV Immunization Adult Patients Completed 06/13/2023 Influenza Vaccine Completed 06/25/2024, , 06/22/2022, Additional history exists HIB Vaccines Aged Out No longer eligi ble based on patient's age to complete this topic HPV Vaccines Aged Out No longer eligi ble based on patient's age to complete this topic Hepatitis A Vaccines Aged Out No long er eligible based on patient's age to complete this topic Hepatitis B Vaccines Aged Out No long er eligible based on patient's age to complete this topic IPV Vaccines Aged Out No longer eligi ble based on patient's age to complete this topic MMR Vaccines Aged Out No longer eligi ble based on patient's age to complete this topic Meningococcal ACWY Vaccine Aged Out N o longer eligible based on patient's age to complete this topic Meningococcal B Vaccine Aged Out No l onger eligible based on patient's age to complete this topic RSV Immunization Patients Under 20 months Aged Out No longer eligible based on patient's age to complete this topic Varicella Vaccines Aged Out No longer eligible based on patient's age to complete this topic Procedures Procedure Name Priority Date/Time Associated Diagnosis Comments POC URINE AUTO W/O MICRO Routine 11/15/2024 2:52 PM EDT OAB (overactive bladder) from Last 3 Months Results * POC Urine Auto W/O Micro (11/15/2024 2:52 PM EDT) Glucose UA POC Negative Negative, Trace mg/dL Bilirubin UA POC Negative Negative, Small Ketones UA POC Negative Negative, Trace Specific [place] UA POC 1.025 Blood UA POC Negative Negative, Large PH UA POC 5.5 Protein UA POC Negative Negative, >=300 mg/dL Urobilinogen UA POC 0.2 E.U./dL mg/dL Nitrite UA POC Negative Negative Leukocytes UA POC Negative Negative Urine Urine specimen obtained by clean catch procedure / Unknown 11/15/2024 2:52 PM EDT Aida Gustafson MD POINT OF CARE TEST ENTER/EDIT O RDERABLES Final Result from Last 3 Months Insurance [employer] MEDICARE ADVANTAGE Care Teams Parking Meter Collector Relationship Specialty Start Date End Date Emmanuel Simms MD [address] [place] [address] Dr Neri [place] PCP - General Internal Medicine 07/14/24
--- OUTSIDE RECORDS SUMMARY | 2025-01-03 13:24 | XMS_ITS | Patient Health Record ---
Author Organization [facility] Address [address] [place] [address] Care Team Providers Care Hoop Expander Name Role Phone Emmanuel Simms MD Primary Care Provider Gerardo Donis Unavailable [phone] Allergies Allergen (clinical drug ingredient) Drug/Non Drug Allergy documented on EMR Reaction Allergy Type Onset Date Status Sulfa Unknown Drug Allergy Active amoxicillin Amoxicillin Unknown Drug Allergy Act koffi Reason For Referral No Information Medications Medication SIG (Take, Route, Frequency, Duration) Notes Start Date End Date Status Aspir-Low 81 MG 1 tablet Orally Once a day for 30 day(s) Active Yuvafem 10 MCG 1 tablet Vaginal Two times a Week/prn Active Calcium + D 315-200 MG-UNIT 1 tablet Orally 4 x a week A ctive Turmeric 500 MG as directed Orally o nce a day Active Magnesium 200 MG 2 tablets with a yelena l Orally Once a day for 30 day(s) Active Immunizations Vaccine Route Administration Date Status Comme nts Influenza Unknown 10/13/2019 Refused Social History Alcohol Screen Question Answer Notes Did you have a drink contain ing alcohol in the past year? Yes How often did you have a dri nk containing alcohol in the past year? 2 to 3 times a week (3 points) How many drinks did you have on a typical day when you were drinking in the past year? 1 or 2 drinks (0 point) How often did you have 6 or more drinks on one occasion in the past year? Never (0 point) Points 3 Interpretation Positive Section Notes: Nonsmoker; glass of wine wit h dinner Nonsmoker; glass of wine wit h dinner Nonsmoker; glass of wine wit h dinner Problems Problem Type SNOMED Code ICD Code Onset Dates Problem Status W/U Status Risk Notes Problem [id number] Encounter for screening for malignant neoplasm of colon (Z12.11) Active confirmed Problem 587765571 History of adenomatous polyp of colon (Z86.010) Active confirmed Problem Screening for malignant neoplasm of rectum (773686503) Encounter for screening for malignant neoplasm of rectum (Z12.12) Active confirmed Problem 68133681 Preprocedural examination (Z01.818) Active confirmed Problem 522323078 Hx of adenomatou s colonic polyps (Z86.010) Active confirmed Problem 78214894 Other irritable bowel syndrome (K58.8) Active confirmed Problem 78817082 Hypertension, unspecified type (I10) Active confirmed Problem Diverticulosis of colon (402064775) Diverticulosis of colon (K57.30) Active confirmed Plan Of Treatment Pending Test Test Name Order Date Pathology 06/25/2021 Future Test Test Name Order Date COLONOSCOPY 10/04/2015 COLONOSCOPY 06/06/2021 Insurance Providers Payer Name Payer Address Payer Phone Subscriber Number Group Number Insured Name Patient Relationship to Insured Coverage Start Date Coverage End Date A[employer] MEDI COMP (REFERR AL REQUIRE D) [address] [address] [place] [address] [id number] NEDA LARA Self - patient is the insured Medical (General) History Medical History History ICD Code Negative colonoscopy 01-10-20 10 except for mild sigmoid diverticulosis and small internal hemorrhoids Screening colonoscopy in 2004 with remov al of a small tubular adenoma Denies [place],DM,CVA,Lung disease,renal dise ase Colonoscopy in 11/2015 with removal of a polyp-not recovered for path Neg. Cologuard in 07/2019 Surgical History Surgery Date(Month/Year) Tubal ligation LEEP
--- OUTSIDE RECORDS SUMMARY | 2025-01-03 13:24 | XMS_ITS | Continuity of Care Document ---
Author Organization [facility] Address [address] [place] [address] Phone Care Team Providers Care Rectangular Tank Cooper Name Role Phone winter Unavailable Unavailable Allergies, Adverse Reactions, Alerts Substance Reaction Status Criticality No Known Allergies Active No Inform ation Medications Medication Instructions Dosage Effective Dates (start - stop) Status Comments Probiotic (unknown strength) Not Available - Active Procedures Procedure Date TRAINING AND DEVELOPMENT COORDINATOR 40 64 Fecal Occult Blood Test OFFICE/OUTPATIENT VISIT, EST Copay Received Offic/outpt E&m Estab Low mod 2 TRAINING AND DEVELOPMENT COORDINATOR 40 64 Fecal Occult Blood Test Medical Records/Disability Form 009 WW 40-64 Fecal Occult Blood Test Screen Pap Obtain Prep Convey 6 Advance Directives Directive Yes / No Effective Date File Name No Information Encounters Encounter Description Practice Location Reason(s) For Visit Diagnoses Date Provider Providers Copied on Encounter [facility], [address] [place] [address], [address], tel:[phone] No Information winter. [address] [place] [address], [id number], [place]. tel:[phone] TRAINING AND DEVELOPMENT COORDINATOR WW 40 64 [facility], [address] [place] [address], [address], [place] tel:[phone] [facility] annual exam (chief complaint) Encntr for coffee blender exam (general) (routine) w/o abn findingsEncn tr screen mammogram for malignant neoplasm of breastEncoun ter for screening for malignant neoplasm of rectumEncoun ter for screening for HPVDisorder of bone density 7 [facility] Alina. [address] [place], [place], [id number], [place]. tel:[phone] Referring Provider: Alina Danielle, [address] [place], [address]. tel:[phone] OFFICE/OUTPA TIENT VISIT, [facility], [address] [place] [address], [address], [place] tel:[phone] [facility] repap (chief complaint) ASCUS Favor Benign 2 Ricardo Joyce. [address] [facility] [place], [id number], [place]. tel:[phone] Referring Provider: Maria Del Carmen Thakkar, [address] [place], [place] [address] [place], [address]. tel:[phone] Offic/outpt E&m Estab Low mod [facility], [address] [place] [address], [address], [place] tel:[phone] [facility]u abnormal pap (chief complaint) ASCUS Favor Benign 2 Ricardo Joyce. [address] [facility] [place], [id number], [place]. tel:[phone] Referring Provider: Maria Del Carmen Thakkar, [address] [place], [place] [address], [address]. tel:[phone] TRAINING AND DEVELOPMENT COORDINATOR WW 40 64 [facility], [address] [place] [address], [address], [place] tel:[phone] [facility] (chief complaint) Screen Mal Neop-rectumS creening Mammogram NecFemale Climacteric State 9 Ricardo Joyce. [address] [place] [address], [id number], . tel:[phone] Referring Provider: Maria Del Carmen Silva MD W, [address] [place] [address], [address]. tel:[phone], [place], tel:[phone] [facility] No Information Wayne Carrillo. [address] [place] [address], [id number], . tel:[phone] Referring Provider: Gerardo Black MD W, [address] [place] [address], [address]. tel:[phone] 40-[address], [place], tel:[phone] [facility] No Information 6 No Information Family History Family Member Type Diagnosis Age At Onset Father Problem (finding) Heart disease Grandpa Problem (finding) Diabetes mellitus Father Problem (finding) hypertension Grandma Problem (finding) Cancer, breast Father Problem (finding) Grandmother Problem (finding) Heart disease Grandma Problem (finding) Uterine ca Father Problem (finding) diabetes melli tus in first degree relative Payers Payer name Insurance type Covered green party ID Authoriza tion(s) [facility] BL [id number] Social History Type Description Quantity Date Captured Comments Sex Female Smoking Status No Information Chief Complaint And Reason For Visit No Information Reason For Referral Reason For Referral No Information Plan Of Treatment Date Type Action Status Referral Ordered: DXA BONE DENSITY, AXIAL Skeleton ordered Referral Ordered: Screening MAMMOGRAM, Bilat W/ U/s And Addl Views If Indicated ordered History Of Present Illness Encounter Date [...] breast exams taught Related to Encntr for coffee blender exam (general) (routine) w/o abn findings Assessments Type Assessment Date No Information Patient Care Teams Name Effective Dates (start - stop) Status Members No Information
== END 2025-01-03 13:39 | disposition home or self-care (01) ==
LOC: HO.HMCHD 13:21
PROVIDERS: PCP Internal Medicine; Visit Provider Internal Medicine
DX: E03.9 Hypothyroidism, unspecified (principal); Z00.00 Encounter for general adult medical examination without abnormal findings

== ENCOUNTER → 2025-01-03 13:20 | Outpatient (BNVA) | payer MEDICARE, SELFPAY | PROVIDERS: PCP Internal Medicine; Visit Provider Internal Medicine | DX: E03.9 Hypothyroidism, unspecified (principal); H92.20 Otorrhagia, unspecified ear; Z79.899 Other long term (current) drug therapy; Z90.710 Acquired absence of both cervix and uterus; Z98.890 Other specified postprocedural states; Z13.30 Encounter for screening examination for mental health and behavioral disorders, unspecified; Z13.31 Encounter for screening for depression | CPT/HCPCS: 96127; 99202 ==

== ENCOUNTER 2025-01-04 09:23 | Outpatient (REF) | payer MEDICARE, SELFPAY ==
--- OUTSIDE RECORDS SUMMARY | 2025-01-04 10:15 | XMS_ITS | Patient Health Record ---
Author Organization [facility] Address [address] [place] [address] Care Team Providers Care Prepleater Name Role Phone Emmanuel Simms MD Primary Care Provider Gerardo Donis Unavailable [phone] Allergies Allergen (clinical drug ingredient) Drug/Non Drug [...] Problem Status W/U Status Risk Notes Problem 438646404 Encounter for screening for malignant neoplasm of colon (Z12.11) Active confirmed Problem 235579055 History of adenomatous polyp of colon (Z86.010) Active confirmed Problem Screening for malignant neoplasm of rectum (187542959) Encounter for screening for malignant neoplasm of rectum (Z12.12) Active confirmed Problem 34294175 Preprocedural examination (Z01.818) Active confirmed Problem 791899620 Hx of adenomatou s colonic polyps (Z86.010) Active confirmed Problem 86106874 Other irritable bowel syndrome (K58.8) Active confirmed Problem 98635610 Hypertension, unspecified type (I10) Active confirmed Problem Diverticulosis of colon (449507571) Diverticulosis of colon (K57.30) Active confirmed Plan Of Treatment Pending Test Test Name Order Date Pathology 06/25/2021 Future Test Test Name Order Date COLONOSCOPY 10/04/2015 COLONOSCOPY 06/06/2021 Insurance Providers Payer Name Payer Address Payer Phone Subscriber Number Group Number Insured Name Patient Relationship to Insured Coverage Start Date Coverage End Date AARP MEDI COMP (REFERR AL REQUIRE D) [address] [address] [place] [address] [id number] NEDA LARA Self - patient is the insured Medical (General) History Medical History History ICD Code Negative colonoscopy 01-10-20 10 except for mild sigmoid diverticulosis and small internal hemorrhoids Screening colonoscopy in 2004 with remov al of a small tubular adenoma Denies [place],DM,CVA,Lung disease,renal dise ase Colonoscopy in 11/2015 with removal of a polyp-not recovered for path Neg. Cologuard in 07/2019 Surgical History Surgery Date(Month/Year) Tubal ligation LEEP
--- OUTSIDE RECORDS SUMMARY | 2025-01-04 10:15 | XMS_ITS | Continuity of Care Document ---
Author Organization [facility] Address [address] [place] [address] Phone Care Team Providers Care Cellulose Insulation Helper Name Role Phone winter Unavailable Unavailable Allergies, Adverse Reactions, Alerts Substance Reaction Status Criticality No Known Allergies Active No Inform ation Medications Medication Instructions Dosage Effective Dates (start - stop) Status Comments Probiotic (unknown strength) Not Available - Active Procedures Procedure Date EXECUTIVE PRODUCER PROMOS 40 64 Fecal Occult Blood Test OFFICE/OUTPATIENT VISIT, EST Copay Received Offic/outpt E&m Estab Low mod 2 EXECUTIVE PRODUCER PROMOS 40 64 Fecal Occult Blood Test Medical Records/Disability Form 009 WW 40-64 Fecal Occult Blood Test Screen Pap Obtain Prep Convey 6 Advance Directives Directive Yes / No Effective Date File Name No Information Encounters Encounter Description Practice Location Reason(s) For Visit Diagnoses Date Provider Providers Copied on Encounter [facility], [address] [place] [address], [address], tel:[phone] No Information winter. [address] [place] [address], [id number], [place]. tel:[phone] EXECUTIVE PRODUCER PROMOS WW [address] [facility], [address] [place] [address], [address], [place] tel:[phone] [facility] annual exam (chief complaint) Encntr for lean engineer exam (general) (routine) w/o abn findingsEncn tr screen mammogram for malignant neoplasm of breastEncoun ter for screening for malignant neoplasm of rectumEncoun ter for screening for HPVDisorder of bone density 7 [facility] Alina. [address] [place], [place], [id number], [place]. tel:[phone] Referring Provider: Alina Danielle, [address] [place], [address]. tel:[phone] OFFICE/OUTPA TIENT VISIT, [facility], [address] [place] [address], [address], [place] tel:[phone] [facility] repap (chief complaint) ASCUS Favor Benign 2 Ricardo Joyce. [address] [facility] [place], [id number], [place]. tel:[phone] Referring Provider: Maria Del Carmen Thakkar, [address] [place], [place] [address], [address]. tel:[phone] Offic/outpt E&m Estab Low mod [facility], [address] [place] [address], [address], [place] tel:[phone] [facility]/u abnormal pap (chief complaint) ASCUS Favor Benign 2 Ricardo Joyce. [address] [facility] [place], [id number], [place]. tel:[phone] Referring Provider: Maria Del Carmen Thakkar, [address] [place], [place] [address], [address]. tel:[phone] EXECUTIVE PRODUCER PROMOS WW [address] [facility], [address] [place] [address], [address], [place] tel:[phone] [facility] annual visit (chief complaint) Screen Mal Neop-rectumS creening Mammogram NecFemale Climacteric State 9 Ricardo Joyce. [address] [place] [address], [id number], . tel:[phone] Referring Provider: Maria Del Carmen Silva MD W, [address] [place] [address], [address]. tel:[phone], [place], tel:[phone] [facility] No Information Wayne Carrillo. [address] [place] [address], [id number], . tel:[phone] Referring Provider: Gerardo Black MD W, [address] [place] [address], [address]. tel:[phone] 40-[address], [place], tel:[phone] [facility] No Information 6 No Information Family History Family Member Type Diagnosis Age At Onset Father Problem (finding) Heart disease Grandpa Problem (finding) Diabetes mellitus Father Problem (finding) hypertension Grandma Problem (finding) Cancer, breast Father Problem (finding) Grandmother Problem (finding) Heart disease Grandma Problem (finding) Uterine ca Father Problem (finding) diabetes melli tus in first degree relative Payers Payer name Insurance type Covered libertarian ID Authoriza tion(s) [facility] BL [id number] Social History Type Description Quantity Date Captured [...] breast exams taught Related to Encntr for lean engineer exam (general) (routine) w/o abn findings Assessments Type Assessment Date No Information Patient Care Teams Name Effective Dates (start - stop) Status Members No Information
--- OUTSIDE RECORDS SUMMARY | 2025-01-04 10:15 | XMS_ITS | Clinical Summary ---
Author Organization [facility] Address [address] [place] [address] Phone Care Team Providers Care Chocolate Refining Roller Name Role Phone Emmanuel Simms MD Primary Care Provider [phone] Allergies Active Allergy Reactions Criticality Noted Date [...] Problem Noted Date Diagnosed Date Cervical cancer ([facility]/HCC V24, [facility]/HCC V28) 02/02 Hypothyroidism 11/20/2023 Encounters Date Type Department Care Team Description 11/15/2024 2:00 PM EDT Office Visit Urogynecology [address] [phone] Aida Gustafson MD OAB (overactive bladder) (Primary Dx); Mixed stress and urge urinary incontinence; Stress incontinence from Last 3 Months Surgical History Surgery Date Site/Laterality Comments HYSTERECTOMY OOPHORECTOMY TUBAL LIGATION Medical History Medical History Date Comments Abnormal Pap smear of cervix Cervical cancer ([facility] V24, [facility] V28) Social History Tobacco Use Types Packs/Day [...] 2:00 PM EDT Treatment Pelvic Floor Rehabilitation [address] [address] Rica Soto, PT [address] [facility] [address] [place] [address] 03/15/2025 11:00 AM EDT Office Visit [facility] [address] [place] [phone] Patti Bray MD [address] [place] [address] Health Maintenance Due Date Last Done Comments [...] Ketones UA POC Negative Negative, Trace Specific Wiggins UA POC 1.025 Blood UA POC Negative [...] Months Insurance [employer] MEDICARE ADVANTAGE Care Teams Chocolate Refining Roller Relationship Specialty Start Date End Date Emmanuel Simms MD [address] [place] [address] Dr Neri [place] PCP - General Internal Medicine 07/14/24
[2025-01-04 13:27] LABS: Hematocrit 40.6 % (37.0-47.0); Hemoglobin 13.5 g/dl (12.0-16.0); Mean Corpuscular HGB Conc 33.3 g/dl (31.0-35.0); Mean Corpuscular Hemoglobin 28.9 pg (27.0-33.0); Mean Corpuscular Volume 86.9 fL (80.0-98.0); Mean Platelet Volume 9.5 fL (9.4-12.3); Platelet Count 212 X10*3/uL (160-400); Red Blood Count 4.67 X10*6/uL (4.20-5.50); Red Cell Distribution Width 13.5 % (11.0-16.0); White Blood Count 7.6 X10*3/uL (4.8-10.8)
[2025-01-04 13:29] LABS: Appearance Urine Clear; Color Urine Yellow; Glucose Urine UA Negative (Negative); Leukocyte Esterase Urine Negative (Negative); Nitrite Urine Negative (Negative); PH 5.5 (5.0-9.0); Urine Blood Negative (Negative); Urine Ketones Negative (Negative); Urine Protein Negative (Neg-Trace)
[2025-01-04 13:58] LABS: Alanine Aminotransferase 15 U/L (0-31); Albumin Level 3.9 g/dL (3.5-5.0); Alkaline Phosphatase 80 U/L (39-117); Anion Gap 9 (12-20); Aspartate Amino Transferase 23 U/L (5-31); Bilirubin Direct 0.2 mg/dL (0.0-0.5); Bilirubin Total 0.6 mg/dL (0.0-1.0); Blood Urea Nitrogen 22 mg/dL (9-16); Carbon Dioxide 25 mmol/L (22-29); Chloride 110 mmol/L (96-108); Cholesterol 166 mg/dL (<200); Estimated Glomerular Filt Rate > 60; Glucose Random 119 mg/dL (60-115); HDL Cholesterol 60 mg/dL (>40); LDL Cholesterol Calculated 94 mg/dL (<100); Potassium 4.2 mmol/L (3.3-5.1); Sodium 140 mmol/L (135-145); Total Protein 6.7 g/dL (6.5-8.0); Triglycerides 60 mg/dL (<150)
[2025-01-04 14:15] LABS: Thyroid Stimulating Hormone 3.22 uIU/mL (0.32-4.0)
== END 2025-01-04 09:24 | disposition home or self-care (01) ==
LOC: HO.HMGCLDS 09:23
PROVIDERS: PCP Internal Medicine; Visit Provider Internal Medicine
DX: E03.9 Hypothyroidism, unspecified (principal)
CPT/HCPCS: 36415; 80048; 80061; 80076; 81003; 84443; 85027

== ENCOUNTER 2025-02-08 11:27 | Outpatient (AMB) | payer MEDICARE, SELFPAY ==
--- NOTE | 2025-02-08 11:28 | MHC.PC.OV ---
Vital Signs 02/08/25 11:31 02/08/25 13:03 Height 5 ft 2 in Weight 88.904 kg BMI 35.8 BP 150/76 H 124/68 Respiration 16 Pulse 89 Pulse Source Pulse Oximeter Temp 98.9 F Temp Source Temporal Artery Scan Pulse Oximetry (%) 99 Oxygen Delivery Method Room Air Intake Visit Reasons: Rash Handicraft Or Hobby Shop Manager Required: No Accompanied by: Self / Same As Patient Allergies Sulfa (Sulfonamide Antibiotics) Allergy (Severe, Verified 02/08/25 11:30) Anaphylaxis amoxicillin Allergy (Mild, Verified 02/08/25 11:30) Rash Medication List - Last Reconciled 02/08/25 by SHANE Stark hydroxyzine HCl 25 mg PO QID PRN levothyroxine 50 mcg PO DAILY@0600 prednisone 10 mg PO DAILY Tobacco use date assessed: 01/03/25 Dental Screening Dental Screen Date: 01/03/25 HPI HPI Comments History of Present Illness Details 69-year-old female with history of urinary incontinence, hypothyroidism presents to the office for evaluation of a rash. She states she has started a new medications solifenacin last Friday night and the following day developed hives across her chest. She did take Benadryl and discontinue the medication with improvement in the hives. However she then developed a maculopapular rash on the chest, followed by the arms, legs, back. There is significant pruritus. Denies any new medications or contacts. She has no history of prior rash. She does have history of several cases of rubella but has not had any upper respiratory symptoms and there has been no rash on the face or fevers. Did travel to [place] over the weekend, but rash was present prior to departure. No one at home with similar rash. No vesicles. No pain. ROS: General: No fevers, malaise, unintentional weight loss HEENT: No sore throat, nasal congestion, rhinorrhea, sinus pain, ear pain Cardiovascular: No chest pain, palpitations, or leg edema Respiratory: No shortness of breath, wheezing, cough Neuro: No headaches, weakness, paresthesias Skin: see hpi EXAM: Constitutional - Awake and Alert, No apparent distress Eyes - PERRL Extremities - no calf tenderness bilaterally, no swelling Skin - Warm/Dry. Maculopapular rash most prominent on chest with lesions on the upper and lower extremities and trunk. No vesicles, induration, fluctuance. Not isolated to sun exposed area. Some excoriation noted Neurological - Alert & oriented x3 Psychological - Appropriate affect [facility] Medical History (Updated 02/08/25 @ 15:40 by SHANE Stark) S/p dental crown Hypothyroidism Morbid obesity Gallstone Surgical History History of ERCP History of cholecystectomy (~07/2023) History of loop electrical excision procedure (LEEP) Hx of tubal ligation Hx of colonoscopy (~06/25/21) Family History Mother No problems noted. Father No problems noted. Social History Household Members: Spouse Housing: House Are you a primary health care assistant to a significant other at home: No Do you presently have visiting nurse or other home services: No Patient Tobacco Use Status: Never used Tobacco e-Cigarette/Vaping Use: Never Used service: No Current occupational status: retired Current occupation: Left hand dominate Cognitive needs: No Hearing needs: No Vision needs: No Questionnaire Thrive Questionnaire Date Thrive assessed: 01/03/25 DEBBIE-7 AMB Questionnaire DEBBIE-7 Date DEBBIE - 7 assessed: 01/03/25 Source: Developed by Drs. Gerardo Gee, Akua Boyer, Manuel Herring and colleagues, with an educational maya from [employer]. Physical exam (Primary Care) Vital Signs: Last Vital Signs Temp 98.9 F 02/08/25 11:31 Pulse 89 02/08/25 11:31 Resp 16 02/08/25 11:31 BP 124/68 02/08/25 13:03 Pulse Ox 99 02/08/25 11:31 Oxygen Delivery Method Room Air 02/08/25 11:31 BMI result Body Mass Index 35.8 Tobacco/Smoking Status: Tobacco use Status Tobacco use date assessed 01/03/25 02/08/25 11:28 Patient Tobacco Use Status Never used Tobacco 02/08/25 11:28 e-Cigarette/Vaping Use Never Used 02/08/25 11:28 Thrive Assessment: Date of Thrive Assessment Date Thrive assessed 01/03/25 02/08/25 11:28 Coding Level of Care Code Est Pt Level 4 (28390) Diagnoses Dermatitis, unspecified L30.9 Assessment & Plan Assessment & Plan (1) Dermatitis, unspecified: Code(s): L30.9 - Dermatitis, unspecified Category: Medical Plan: Etiology unclear. Not consistent with urticaria. No morbilliform pattern suggestive of a true drug rash nor is she experiencing any fevers and solifenacin was discontinued over a week ago. No vesicular lesions to suggest varicella. No upper respiratory symptoms to suggest viral etiology. No new contacts or exposure to irritants/noxious substances. Given extent of rash, will try oral prednisone taper. Counseled on dosing and side effects. She is also given hydroxyzine to use as needed. Should symptoms not improve, recommend reaching out to Dermatology office for evaluation. Medications: New prednisone 10 mg PO DAILY 30 tabs 0RF hydroxyzine HCl 25 mg PO QID PRN 30 tabs 0RF itching prednisone 40 mg Daily x3 days, 30 mg daily x3 days, 20 mg daily x3 days, 10 mg daily x3 days 10 mg PO DAILY 30 tabs 0RF
[2025-02-08 11:31] VITALS: BP 150/76; PULSE 89; RESP 16; TEMP 37.2; O2SAT 99; BMI 35.8
[2025-02-08 13:03] VITALS: BP 124/68
--- OUTSIDE RECORDS SUMMARY | 2025-02-08 13:05 | XMS_ITS | Clinical Summary ---
Author Organization [facility] Address [address] [place] [address] Phone Care Team Providers Care Racing Driver Name Role Phone Emmanuel Simms MD Primary Care Provider [phone] Allergies Active Allergy Reactions Criticality Noted Date [...] Problem Noted Date Diagnosed Date Cervical cancer ([facility]/HCC V24, [facility]/HCC V28) 02/02 Hypothyroidism 11/20/2023 Encounters Date Type Department Care Team Description 11/15/2024 2:00 PM EDT Office Visit Urogynecology [address] [phone] Aida Gustafson MD OAB (overactive bladder) (Primary Dx); Mixed stress and urge urinary incontinence; Stress incontinence from Last 3 Months Surgical History Surgery Date Site/Laterality Comments HYSTERECTOMY OOPHORECTOMY TUBAL LIGATION Medical History Medical History Date Comments Abnormal Pap smear of cervix Cervical cancer ([facility] V24, [facility] V28) Social History Tobacco Use Types Packs/Day [...] 81 11/15/2024 2:13 PM EDT Temperature 36.3 C (97.3 F) 09/14/2024 1:11 PM EST Respiratory Rate - - Oxygen Saturation - - Inhaled Oxygen Concentration - - Weight 88.5 kg (195 lb) 11/15/2024 2:13 PM EDT Height 157.5 cm (5' 2 ) 11/15/2024 2:13 PM EDT Body Mass Index 35.67 11/15/2024 2:13 PM EDT Plan of Treatment Upcoming Encounters Date Type Department Care Team (Late st Contact Info) Description 02/25/2025 2:00 PM EDT Treatment Pelvic Floor Rehabilitation [address] [phone] Rica Soto, PT [address] [address] 03/15/2025 11:00 AM EDT Office Visit [facility] [address] [place] [phone] Patti Bray MD [address] [place] [address] Health Maintenance Due Date Last Done Comments [...] COVID-19 Vaccine (7 - Mixed Product risk ) 12/23/2024 06/25/2024, 06/13/2023, 06/22/2022, Additional history exists RSV [...] Ketones UA POC Negative Negative, Trace Specific Purdin UA POC 1.025 Blood UA POC Negative Negative, Large PH UA POC 5.5 Protein UA POC Negative Negative, >=300 mg/dL Urobilinogen UA POC 0.2 E.U./dL mg/dL Nitrite UA POC Negative Negative Leukocytes UA POC Negative Negative Urine Urine specimen obtained by clean catch procedure / Unknown 11/15/2024 2:52 PM EDT us Aida Gustafson MD POINT OF CARE TEST ENTER/EDIT O RDERABLES Final Result from Last 3 Months Insurance [employer] MED[employer]ARE [employer]AGE Care Teams Racing Driver Relationship Specialty Start Date End Date Emmanuel Simms MD [address] [place] [address] Dr Neri [place] PCP - General Internal Medicine 07/14/24
== END 2025-02-08 12:57 | disposition home or self-care (01) ==
LOC: HO.HMCHD 11:27
PROVIDERS: PCP Internal Medicine; Visit Provider Physician Assistant
DX: L30.9 Dermatitis, unspecified (principal)

== ENCOUNTER → 2025-02-08 11:27 | Outpatient (BNVA) | payer MEDICARE, SELFPAY | PROVIDERS: PCP Internal Medicine; Visit Provider Physician Assistant | DX: R21 Rash and other nonspecific skin eruption (principal); L30.9 Dermatitis, unspecified; E03.9 Hypothyroidism, unspecified | CPT/HCPCS: 99212 ==

== ENCOUNTER 2025-07-07 15:29 | Outpatient (REF) | payer MEDICARE, SELFPAY ==
--- NOTE | ~2025-07-07 | XR_ITS ---
EXAMINATION: XR LUMBAR SPINE 2-3 VIEWS HISTORY: M54.50 - Low back pain, unspecified COMPARISON: There are no prior studies for comparison. FINDINGS: AP, lateral, and coned down views of the lumbar spine are submitted. Osseous mineralization is normal. Five nonrib-bearing lumbar vertebral bodies are identified, maintaining normal height and alignment without evidence of fracture or spondylolisthesis. There is moderate degenerative disc disease at the L5-S1 level with disc space narrowing and osteophyte formation. Milder changes are noted at the remaining levels. There is osteoarthritis of the facet joints. The visualized paraspinal soft tissues are unremarkable. XR/XR lumbar spine 2-3V IMPRESSION: Degenerative changes of the lumbar spine as described. Electronically signed by: Gerardo Mack MD 07/08/2025 07:20 AM MIC[facility]
--- NOTE | ~2025-07-07 | XR_ITS ---
EXAMINATION: XR BILATERAL HIPS WITH AP PELVIS CLINICAL INFORMATION: M25.551 - Pain in right hip COMPARISON: None available. TECHNIQUE: AP and oblique views both hips. FINDINGS: No acute cortical disruption or malalignment in either hip. No lytic or blastic lesions. Preservation of the joint spaces. Multiple vascular clips in the pelvis. Spondylosis L5-S1. XR/XR hips NESSA min 3V IMPRESSION: No acute fracture or dislocation. No gross degenerative changes. Electronically signed by: Sergo De Jesus MD 07/08/2025 07:18 AM [facility]
== END 2025-07-07 15:30 | disposition home or self-care (01) ==
LOC: HO.XRAY 15:29
PROVIDERS: PCP Physician Assistant Medical; Visit Provider Physician Assistant Medical
DX: M25.551 Pain in right hip (principal); M25.552 Pain in left hip; E03.9 Hypothyroidism, unspecified; M54.50 Low back pain, unspecified; R32 Unspecified urinary incontinence; E66.9 Obesity, unspecified; K52.9 Noninfective gastroenteritis and colitis, unspecified; Z78.0 Asymptomatic menopausal state
CPT/HCPCS: 36415; 72100; 73522; 84443; 96127

== ENCOUNTER 2025-07-07 15:29 | Outpatient (AMB) | payer MEDICARE, SELFPAY ==
--- OUTSIDE RECORDS SUMMARY | 2017-05-23 03:15 | XMS_ITS | Continuity of Care Document ---
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 REPAIRER APPRENTICE 40 64 Fecal Occult Blood Test OFFICE/OUTPATIENT VISIT, EST Copay Received Offic/outpt E&m Estab Low mod 2 SHOE REPAIRER APPRENTICE 40 64 Fecal Occult Blood Test Medical Records/Disability Form 009 WW 40-64 Fecal Occult Blood Test Screen Pap Obtain Prep Convey 6 Advance Directives Directive Yes / No Effective Date File Name No Information Encounters Encounter Description Practice Location Reason(s) For Visit Diagnoses Date Provider Providers Copied on Encounter [facility], [address] [place] [address], [id number], tel:[phone] No Information winter. [address] [place] [address], [id number], [place]. tel:[phone] SHOE REPAIRER APPRENTICE WW 40 64 [facility], [address] [place] [address], [address], [place] tel:[phone] [facility] annual exam (chief complaint) Encntr for rn gyn exam (general) (routine) w/o abn findingsEncn tr screen mammogram for malignant neoplasm of breastEncoun ter for screening for malignant neoplasm of rectumEncoun ter for screening for HPVDisorder of bone density 7 [facility]. [address] [place], [place], [id number], [place]. tel:[phone] Referring Provider: Alina Danielle, [address] [place], [address]. tel:[phone] OFFICE/OUTPA TIENT VISIT, [facility], [address] [place] [address], [address], [place] tel:[phone] [facility] repap (chief complaint) ASCUS Favor Benign 2 Ricardo Joyce. [address] [facility] [place], [id number], [place]. tel:[phone] Referring Provider: Maria Del Carmen Thakkar, [address] [place], [place] [address], [address]. tel:[phone] Offic/outpt E&m Estab Low mod [facility], [address] [place] [address], [address], [place] tel:[phone] [facility] abnormal pap (chief complaint) ASCUS Favor Benign 2 Ricardo Joyce. [address] [facility] [place], [id number], [place]. tel:[phone] Referring Provider: Maria Del Carmen Thakkar, [address] [place], [place] [address], [address]. tel:[phone] SHOE REPAIRER APPRENTICE WW 40 64 [facility], [address] [place] [address], [address], [place] tel:[phone] [facility] Screen Mal Neop-rectumS creening Mammogram NecFemale Climacteric State 9 Ricardo Joyce. [address] [place] [address], [id number], . tel:[phone] Referring Provider: Maria Del Carmen Silva MD W, [address] [place] [address], [address]. tel:[phone], [place], tel:[phone] [facility] No Information 9 Wayne Carrillo. [address] [place] [address], [id number], . tel:[phone] Referring Provider: Gerardo Black MD W, [address] [place] [address], [address]. tel:[phone] 40-[address], [place], tel:[phone] [facility] No Information 6 No Information Family History Family Member Type Diagnosis Age At Onset Father Problem (finding) Heart disease Grandpa Problem (finding) Diabetes mellitus Father Problem (finding) hypertension Grandma Problem (finding) Cancer, breast Father Problem (finding) Grandmother Problem (finding) Heart disease Grandma Problem (finding) Uterine ca Father Problem (finding) diabetes melli tus in first degree relative Payers Payer name Insurance type Covered republican ID Authoriza tion(s) [facility] [id number] Social History Type Description Quantity Date Captured Comments Sex Female Smoking Status No Information Chief Complaint And Reason For Visit No Information Reason For Referral Reason For Referral No Information Plan Of Treatment Date Type Action Status Referral Ordered: Screening MAMMOGRAM, Bilat W/ U/s And Addl Views If Indicated ordered Referral Ordered: DXA BONE DENSITY, AXIAL Skeleton ordered History Of Present Illness Encounter Date Complaint History Of Prese nt Illness annual exam Currently pregna nt: no. : 3. Parity: Term: 1. Pre-Term: 1. : 1. Livin. The patient states she uses menopausal for control. Negative for dysmenorrhea and menorrhagia. Menopausal symptoms negative for: night sweats. Pertinent negatives include anxiety, depression and vaginal discharge.The patient states her exercise frequency is no. She does drink alcohol. Additional information: -62 y/o CS x 2 (twins) -Denies PMB-colonoscopy 10/27 due in 2017 denies BRRB-unsure of last pap -mammo 4 yrs ago-dexa mgnt pcp hx osteopenia -family hx breast and ovarian CA in Paternal GM . Functional Status Date Functional Assessmen t No Information Instructions Date Instruction Additional Infor korina Ca+ 1000mg + Vit D 1 000 IU daily, self breast exams taught Related to Encntr for rn gyn exam (general) (routine) w/o abn findings Assessments Type Assessment Date No Information Patient Care Teams Name Effective Dates (start - stop) Status Members No Information
--- OUTSIDE RECORDS SUMMARY | 2025-01-06 02:05 | XMS_ITS | Continuity of Care Document ---
Author Organization [facility] Address [address] [place] [address] Phone Care Team Providers Care Breeding Manager Name Role Phone Narciso Cosby OD Unavailable Unavailable Allergies, Adverse Reactions, Alerts Substance Reaction Status Criticality No Known Allergies Active No Inform ation Medications Medication Instructions Dosage Effective Dates (start - stop) Status Comments lisinopril 10 mg tablet take 1 tablet by oral route every day 10 MG - Active COST ACCOUNTING CLERK Thyroid 30 mg tablet take 1 tablet by oral route every day 30 MG - Active Procedures Procedure Date Computerized; Retina New Pt Complete Advance Directives Directive Yes / No Effective Date File Name No Information Encounters Encounter Description Practice Location Reason(s) For Visit Diagnoses Date Provider [facility], [address] [place] [address], [id number], [place] tel:[phone] [facility] [address] blurry vision (chief complaint) Combined forms of age-related cataract, bilateralDrusen (degenerative) of macula, right eyeOpen angle with borderline findings, low risk, bilateral 2024 Alea Stuart. [address], [place], [address], [place]. tel:[phone] Family History Family Member Type Diagnosis Age At Onset No Information Payers Payer name Insurance type Covered democrat ID Authoriza tichris(s) [place] [id number] [facility] Supplemental Claims Dept [place] [phone] Social History Type Description Quantity Date Captured Comments Alcohol Use Details beer & wine 1 glass socially Caffeine Use Details coffee 3 cups per day Tobacco Use Status Current non-smoker Smoking Status Never smoker Non-Smoking Tobacco Use Details : No Details Available : No Details Available Sex Female Chief Complaint And Reason For Visit From encounter dated '01/06/2025 07:05'. blurry vision (chief complaint) History Of Present Illness Encounter Date Complaint History Of Prese nt Illness blurry vision The 69 year old female presents for evaluation of blurry vision in the right eye and left eye. It started about 1 month(s) ago. The onset was gradual. It affects both near and far vision. The symptom is constant. The condition is worsening. Patient states central vision is getting more blurry. Instructions Date Instruction Additional Infor mation Impression/Plan - -O bserve condition. -RTC 12 months for complete exam or sooner if symptoms worsen. Related to Combined forms of age-related cataract, bilateral Impression/Plan - -L ow risk-RTC 1 yr for complete exam + RNFL Related to Open angle with borderline findings, low risk, bilateral Impression/Plan - -R eviewed lifestyle changes to decrease risk of AMD progression (Such as smoking, sun glasses). -Rec Lutein/Zeaxanthin supplements in addition to lifestyle changes. -RTC 12 months for complete + OCT (Mac). Related to Drusen (degenerative) of macula, right eye Assessments Type Assessment Date assessment Combined forms of age-related ca taract, bilateral impression Combined forms of ag e-related cataract, bilateral: H25.813.-Visually significant, but asymptomatic except at PM -Patient reporting difficulty with glare.-BCVA OD 20/20 , OS 20/20. Glare OD 20/60 , OS 20/40 assessment Drusen (degenerative) of macula, right eye impression Drusen (degenerative ) of macula, right eye: H35.361.-No SRF/IRF per OCT-Denies distortion. Vision stable assessment Open angle with borderline findi ngs, low risk, bilateral impression Open angle with bord otoniel findings, low risk, bilateral: H40.013.-IOP OD 17 OS 15-C/D Asymmetry-Vertical cupping OD, OS. -OD with RNFL loss. Average OD-OS with RNFL loss. Average OS, -VF OD (VFI %), -VF OS (VFI %) -[facility],
--- NOTE | 2025-07-06 17:50 | A.OFFPC_ITS ---
Vital Signs 07/07/25 15:38 Height 5 ft 2 in Weight 194 lb BMI 35.5 BP 130/76 Blood Pressure Location Lt brachial Position Sitting Pulse 77 Pulse Source Pulse Oximeter Temp 97 F Temp Source Temporal Artery Scan Pulse Oximetry (%) 99 Oxygen Delivery Method Room Air Intake Visit Reasons: Routine Program Scheduler Required: No Accompanied by: Self / Same As Patient Allergies Sulfa (Sulfonamide Antibiotics) Allergy (Severe, Verified 07/06/25 17:50) Anaphylaxis amoxicillin Allergy (Mild, Verified 07/06/25 17:50) Rash Medication List - Last Reconciled 08/01/25 by SHANE Jones levothyroxine 50 mcg PO DAILY@0600 Tobacco use date assessed: 07/07/25 Fall risk assessment: No Falls in past year Last assessed Fall Risk: 07/07/25 Dental Screening Dental Screen Date: 07/07/25 Did you have a dental visit in the last 12 months?: Yes Did you have a dental problem in the last 6 months where you did not have access to dental care?: No HPI HPI Comments History of Present Illness Details History of Present Illness The patient is a 70-year-old female with hypothyroidism, urinary incontinence and obesity presenting for a health maintenance visit, follow up on chronic conditions, and to establish care. The patient has a history of hypothyroidism diagnosed 4-5 years ago from a routine blood test, after experiencing symptoms including hair loss. Thyroid medication helped with symptoms and the last thyroid test in December was normal. TSH of 3.22 For the past several years, the patient has experienced chronic loose stools, occurring 2 to 4 times each morning. The patient believes this started after beginning thyroid medication and notes that a fiber supplement was previously helpful. The patient reports a specific spot in the back that hurts every morning and is exacerbated by leaning. The patient also experiences nocturnal hip joint pain, which is worse when sleeping on the sides and eases when lying on the back. There is a history of bursitis in that hip, and a past CT scan for the gallbladder noted a questionable disc finding. A cancer diagnosis of endometrium was made incidentally from a CT scan for the gallbladder, which led to a hysterectomy a year ago in January. The patient follows up with a mold holder every six months. Following the surgery, the patient developed urinary stress incontinence and is currently undergoing pelvic floor physical therapy, which has been helpful. The patient had cataract surgery in August and is subsequently unhappy with vision, citing loss of near vision and some trouble with far vision. A follow-up with the eye doctor is planned. For health maintenance, a mammogram is scheduled for July. The patient's last bone density scan was about 10 years ago. Medical History: - Hypothyroidism, diagnosed 4-5 years ag o. - History of unspecified cancer, found i ncidentally on CT scan. - Urinary stress incontinence, post-hyst erectomy. - History of bursitis of the hip. - History of allergy attack. - History of disc issue noted on a past CT scan. Surgical History: - Cataract removal in August. - Hysterectomy one year ago in January for cancer. - History of cholecystectomy, per patien t report of a CT scan for the gallbladder. Medications: - Thyroid medication for hypothyroidism, one refill remaining. Family History: - Mother had degenerative arthritis of t he spine. Health Maintenance For osteoporosis screening, a bone density scan has been ordered, as the last one was over 10 years ago. The patient was advised to try to schedule this for the same day as the upcoming mammogram in July. The patient will continue with regular gynecologic follow-up for cancer surveillance and is addressing post-surgical urinary incontinence with pelvic floor physical therapy. Regarding post-cataract surgery vision changes, the patient will arrange a follow-up with the care aid. A return visit is scheduled for 6 months, with the plan to contact the patient sooner if any diagnostic results are abnormal. Results - Labs: Thyroid function test in December was normal. Patient was informed and verbally consented to the use of an ambient scribe for clinic note documentation during this visit. [facility] Medical History (Updated 08/01/25 @ 11:49 by SHANE Jones) Bilateral hip pain Gallstone Hypothyroidism Low back pain Morbid obesity Obesity (BMI 30-39.9) S/p dental crown Surgical History History of cholecystectomy (~07/2023) History of ERCP History of loop electrical excision procedure (LEEP) Hx of colonoscopy (~06/25/21) Hx of tubal ligation Family History (Updated 07/07/25 @ 15:41 by Naina Ferreira MA) Mother No problems noted. Father No problems noted. Social History Household Members: Spouse Housing: House Are you a primary personal care aide to a significant other at home: No Do you presently have visiting nurse or other home services: No Patient Tobacco Use Status: Never used Tobacco e-Cigarette/Vaping Use: Never Used service: No Current occupational status: retired Current occupation: Left hand dominate Cognitive needs: No Hearing needs: No Vision needs: No Questionnaire PHQ-9 Over the last 2 weeks, how often have you been bothered by any of the following problems? 1. Little interest or pleasure in doing things: not at all 2. Feeling down, depressed, or hopeless: not at all 3. Trouble falling or staying asleep, or sleeping too much: not at all 4. Feeling tired or having little energy: not at all 5. Poor appetite or overeating: not at all 6. Feeling bad about yourself - or that you are a failure or have let yourself or your family down: not at all 7. Trouble concentrating on things, such as reading the newspaper or watching television: not at all 8. Moving or speaking so slowly that other people could have noticed. Or the opposite - being so fidgety or restless that you have been moving around a lot more than usual: not at all 9. Thoughts that you would be better off or of hurting yourself in some way: not at all Total score: 0 Depression Screening Interpretation: Negative Depression Screening Done: Yes Source: Developed by Drs. Gerardo Gee, Akua Boyer, Manuel Herring and colleagues, with an educational maya from [facility]. Thrive Questionnaire Date Thrive assessed: 07/07/25 I am a: Patient Within the past 12 months, did the food you bought not last and you didn't have the money to get more?: Never true Within the past 12 months, did you worry whether your food would run out before you got money to buy more?: Never true Do you have trouble paying for medicines?: No Do you have trouble getting transportation to medical appointments?: No Do you have trouble paying your heating and electricity bill?: No Do you have trouble taking care of your child, family member or friend?: No Do you have trouble with day-to-day activities such as bathing, preparing meals, shopping, managing finances, etc.?: No Are you currently unemployed and looking for a job?: No Are you interested in more education?: No THRIVE Score: 0 AUDIT C Alcohol Use Questionnaire (AUDIT-C) 1. How often do you have a drink containing alcohol?: Monthly or less 2. How many drinks containing alcohol do you have on a typical day when you are drinking?: 1 or 2 3. How often do you have six or more drinks on one occasion?: Less than monthly Total Score: 2 DEBBIE-7 AMB Questionnaire DEBBIE-7 Date DEBBIE - 7 assessed: 07/07/25 Feeling nervous, anxious, or on edge: 0 = Not at all Not being able to stop or control worryin = Not at all Worrying too much about different things: 0 = Not at all Trouble relaxin = Not at all Being so restless that it is hard to sit still: 0 = Not at all Becoming easily annoyed or irritable: 0 = Not at all Feeling afraid as if something awful might happen: 0 = Not at all Total DEBBIE-7 score (0-4 normal; 5-9 mild; 10-14 moderate; 15-21 severe): 0 Source: Developed by Drs. Gerardo Gee, Akua Boyer, Manuel Herring and colleagues, with an educational maya from [facility]. Review of Systems Narrative Review of Systems - Eyes: Reports loss of near vision and some trouble with far vision since cataract surgery. - Ears: Denies hearing problems. - Cardiovascular: Denies chest pain. - Respiratory: Denies coughing or shortness of breath. - Gastrointestinal: Reports chronic loose stools, 2-4 times each morning. Denies constipation or heartburn. - Genitourinary: Reports urinary leakage when coughing or sneezing. - Musculoskeletal: Reports a spot in the back that hurts every morning and with leaning. Reports hip joint pain at night that is relieved by changing positions. Physical exam (Primary Care) Vital Signs: Last Vital Signs Temp 97 F 07/07/25 15:38 Pulse 77 07/07/25 15:38 BP 130/76 07/07/25 15:38 Pulse Ox 99 07/07/25 15:38 Oxygen Delivery Method Room Air 07/07/25 15:38 BMI result Body Mass Index 35.5 GENERAL Well developed, obese, in no apparent distress HEENT Head-Normocephalic Eyes- PERRLA, EOMI, Conjuctiva clear, lids WNL Ears- Canals clear, TMs WNL Mouth/Throat-No lesions, no erythema, no exudate Neck- Supple, No lymphadenopathy, thyroid WNL RESPIRATORY Normal I:E, Clear to auscultation CARDIOVASCULAR Regular, rate and rhythm, No murmurs or rubs GASTROINTESTINAL Soft, nontender, normal bowel sounds, no masses MUSCULOSKELETAL Back-Normal ROM, Palpation of the back elicits point tenderness over a specific vertebral level, Straight leg raise negative/Pos, DTR 2+ symmetrical, Gait normal Joints- no swelling or deformity NEUROLOGICAL Gait normal PSYCHIATRIC Oriented to person, place and time Mood and affect WNL Appearance WNL Speech WNL Thought processes WNL Tobacco/Smoking Status: Tobacco use Status Tobacco use date assessed 07/07/25 07/06/25 17:53 Patient Tobacco Use Status Never used Tobacco 07/06/25 17:53 e-Cigarette/Vaping Use Never Used 07/06/25 17:53 PHQ-9: PHQ-9 Score PHQ-9: Total score 0 07/11/25 17:16 Depression Screening Interpretation: Negative Thrive Assessment: Date of Thrive Assessment Date Thrive assessed 07/07/25 07/06/25 17:53 Coding Level of Care Code Established Pt Est Pt Level 4 (79140) Established Pt Add On Problem Visit Only Patient Type Established Diagnoses Acquired hypothyroidism E03.9 Hypothyroidism type: acquired Low back pain M54.50 Bilateral hip pain M25.551; M25.552 Chronic diarrhea K52.9 Obesity (BMI 30-39.9) E66.9 Time Spent (min) 35 Comment Time spent on chart review, medication reconciliation, H&P, Patient education and orders. Assessment & Plan Assessment & Plan (1) Hypothyroidism: Comment: TSH 3.22 Code(s): E03.9 - Hypothyroidism, unspecified Category: Medical Qualifiers: Hypothyroidism type: acquired Qualified Code(s): E03.9 - Hypothyroidism, unspecified Plan: Will get TSH. Patient to follow up in 6 months or sooner if needed. (2) Low back pain: Code(s): M54.50 - Low back pain, unspecified Category: Medical Plan: Will get xray (3) Bilateral hip pain: Code(s): M25.551 - Pain in right hip; M25.552 - Pain in left hip Category: Medical Plan: Will get xray (4) Chronic diarrhea: Code(s): K52.9 - Noninfective gastroenteritis and colitis, unspecified Plan: Will continue with metamucil (5) Obesity (BMI 30-39.9): Comment: BMI today was 35.5 Code(s): E66.9 - Obesity, unspecified Category: Medical Plan: Patient has maintained the same weight. Diet and exercise were reviewed. Plan Plan Patient was informed and verbally consented to the use of an ambient scribe for clinic note documentation during this visit. 1. Hypothyroidism The patient's hypothyroidism appears stable on current medication, with the last thyroid labs in December being normal. Follow-up blood work will be ordered to re- check levels. A refill of the thyroid medication will be provided. 2. Chronic Diarrhea The patient reports chronic loose stools, which are thought to be possibly related to thyroid medication. The patient was advised to try a fiber supplement, such as Metamucil or Benefiber, to help bulk the stool, as this was effective in the past. 3. Low Back And Hip Pain The patient reports chronic low back pain with point tenderness on exam, and nocturnal hip pain. Given the tenderness, there is concern for a possible compression fracture. X-rays of the lower back and hips have been ordered to evaluate for fracture, arthritis, or other etiology. Discussion Notes I discussed with the patient the plan to establish care and address several ongoing issues. We will be obtaining follow-up blood work for the thyroid, and I have placed orders for x-rays of the lower back and hips to investigate the source of the patient's pain. I also ordered a bone density scan for osteoporosis screening, given the patient's age and the long interval since the last test; I advised trying to schedule this with the upcoming mammogram for convenience. We reviewed management for chronic loose stools, recommending the patient restart a fiber supplement. I supported the patient's plan to follow up with the care aid for vision concerns and to continue with pelvic floor PT for incontinence. I explained that I will schedule a follow-up in six months but will call sooner if any of the ordered tests show concerning results. Patient Instructions - Go to the hospital today to have blood work and x-rays of your lower back and hips completed. - An order has been placed for a bone density scan. Please call the radiology department in about a week to schedule this for the same day as your mammogram in July. - Consider taking a fiber powder supplement, such as Metamucil, to help with your loose stools. - Continue with your pelvic floor physical therapy. - Follow up with your eye doctor about the changes in your vision. - A follow-up appointment has been scheduled for you in six months. We will call you sooner if your lab or x-ray results require earlier attention. - Check out at the front office help to schedule your next appointment. Orders: Orders TSH reflex Free T4 07/07/25 E03.9 - Hypothyroidism, unspecified XR DEXA axial skeleton 07/07/25 Z78.0 - Asymptomatic menopausal state XR lumbar spine 2-3V 07/07/25 M54.50 - Low back pain, unspecified XR hips NESSA min 3V 07/07/25 M25.551 - Pain in right hip, M25.552 - Pain in left hip Medications: Changed From levothyroxine 50 mcg PO DAILY@0600 90 tabs 1RF To levothyroxine in the am on an empty stomach 50 mcg PO DAILY@0600 90 tabs 2RF
[2025-07-07 15:38] VITALS: BP 130/76; PULSE 77; TEMP 36.1; O2SAT 99; BMI 35.5
--- OUTSIDE RECORDS SUMMARY | 2025-07-07 20:36 | XMS_ITS | Patient Health Record ---
Author Organization [facility] Address [address] [place] [address] Care Team Providers Care Feeder Operator Name Role Phone Mendez (RETIRED) Emmanuel ARROYO Primary Care Provide Gerardo Pruitt Unavailable [phone] Allergies Allergen (clinical drug ingredient) Drug/Non Drug Allergy documented on EMR Reaction Allergy Type Onset Date Status amoxicillin Amoxicillin Unknown Drug Allergy Act koffi Sulfa Unknown Drug Allergy Active Reason For Referral No Information Medications Medication SIG (Take, Route, Frequency, Duration) Notes Start Date End Date Status Aspir-Low 81 MG Tablet Delayed Release 1 tablet Orally Once a day; Duration: 30 day(s) Active Yuvafem 10 MCG Tablet 1 tablet Vaginal T wo times a Week/prn Active Calcium + D 315-200 MG-UNIT Tablet 1 tablet Orally 4 x a week Active Turmeric 500 MG Capsule as directed Oral ly once a day Active Magnesium 200 MG Tablet 2 tablets with a meal Orally Once a day; Duration: 30 day(s) Active Immunizations Vaccine Route Administration Date Status Comme nts Influenza Unknown 10/13/2019 Refused Social History Social History Drugs/Alcohol: Social Info Question Answer Notes Alcohol Screen Did you have a drink containing alcohol in the past year? Yes How often did you have a drink containing alcohol in the past year? 2 to 3 times a week (3 points) How many drinks did you have on a typical day when you were drinking in the past year? 1 or 2 drinks (0 point) How often did you have 6 or more drinks on one occasion in the past year? Never (0 point) Points 3 Interpretation Positive Additional Details Category Social Info Options Details Miscellaneous: Marital status: Occupation: Retired Section Notes: Nonsmoker; glass of wine wit h dinner Nonsmoker; glass of wine wit h dinner Nonsmoker; glass of wine wit h dinner Problems Problem Type SNOMED Code ICD Code Onset Dates Problem Status W/U Status Risk Notes Problem Screening for malignant neoplasm of colon (982918354) Encounter for screening for malignant neoplasm of colon (Z12.11) Active confirmed Problem History of adenomatous polyp of colon (511171723) History of adenomatous polyp of colon (Z86.010) Active confirmed Problem Screening for malignant neoplasm of rectum (805343283) Encounter for screening for malignant neoplasm of rectum (Z12.12) Active confirmed Problem Preprocedural examination (910016674897948) Preprocedural examination (Z01.818) Active confirmed Problem History of adenomatous polyp of colon (522552708) Hx of adenomatous colonic polyps (Z86.010) Active confirmed Problem Irritable bowel syndrome (73565295) Other irritable bowel syndrome (K58.8) Active confirmed Problem Essential hypertension (62576754) Hypertension, unspecified type (I10) Active confirmed Problem Diverticulosis of colon (786056612) Diverticulosis of colon (K57.30) Active confirmed Plan Of Treatment Pending Test Test Name Order Date Pathology 06/25/2021 Future Test Test Name Order Date COLONOSCOPY 10/04/2015 COLONOSCOPY 06/06/2021 Insurance Providers Payer Name Payer Address Payer Phone Subscriber Number Group Number Insured Name Patient Relationship to Insured Coverage Start Date Coverage End Date [employer] MEDI COMP (REFERR AL REQUIRE D) [address] [address] [place] [address] [phone] [id number] NEDA LARA Self - patient is the insured Medical (General) History Medical History History ICD Code Negative colonoscopy 01-10-20 10 except for mild sigmoid diverticulosis and small internal hemorrhoids Screening colonoscopy in 2004 with remov al of a small tubular adenoma Denies GA,DM,CVA,Lung disease,renal dise ase Colonoscopy in 11/2015 with removal of a polyp-not recovered for path Neg. Cologuard in 07/2019 Surgical History Surgery Date(Month/Year) Tubal ligation LEEP
--- OUTSIDE RECORDS SUMMARY | 2025-07-07 20:36 | XMS_ITS | Clinical Summary ---
Author Organization [facility] Address [address] [place] [address] Phone Care Team Providers Care Propagator Laborer Name Role Phone Emmanuel Simms MD Primary Care Provider [phone] Allergies Active Allergy Reactions Criticality Noted Date Comments Amoxicillin Dermatitis,Rash 11/20/2023 Solifenacin Hives,Rash 06/08/2025 Developed it after 1.5 months of use. Sulfa (Sulfonamide Antibiotics) Anaphylaxis High 11/20/2023 Sulfa Drugs Medications levothyroxine (SYNTHROID, LEVOTHROID) 50 mcg tablet Take 1 Tablet by mouth daily. Active clindamycin-esha zoyl peroxide (DUAC) 1.2-5% gel APPLY EVERY MORNING TO ACNE ON FACE 10/27/2024 Active Active Problems Problem Noted Date Diagnosed Date Cervical cancer ([facility] V24, [facility] V28) 02/02 Hypothyroidism 11/20/2023 Encounters Date Type Department Care Team Description 06/16/2025 11:30 AM EDT Treatment Pelvic Floor Rehabilitation - [address] [phone] Rica Soto, JORGE ALBERTO Urinary incontinence, mixed (Primary Dx); Urinary frequency; Urinary urgency; Muscle weakness; Posture imbalance 06/08/2025 3:15 PM EDT Office Visit Urogynecology - [address] [phone] Aida Gustafson MD Stress incontinence (Primary Dx); OAB (overactive bladder); Urge urinary incontinence 05/05/2025 3:00 PM EDT Treatment Pelvic Floor Rehabilitation [address] [phone] Rica Soto, PT Urinary incontinence, mixed (Primary Dx); Urinary frequency; Urinary urgency; Muscle weakness; Posture imbalance 04/14/2025 11:30 AM EDT Treatment Pelvic Floor [address] [phone] Rica Soto, PT Urinary incontinence, mixed (Primary Dx); Urinary frequency; Urinary urgency; Muscle weakness; Posture imbalance from Last 3 Months Surgical History Surgery Date Site/Laterality Comments HYSTERECTOMY OOPHORECTOMY TUBAL LIGATION Medical History Medical History Date Comments Abnormal Pap smear of cervix Cervical cancer ([facility] V24, [facility] V28) Social History Tobacco Use Types Packs/Day Years Used Date Smoking Tobacco: Never Assessed Comments Unknown Sex and Gender Information Value Date Recorded Sex Assigned at Not on file Legal Sex Female 9:27 PM EST Gender Identity Not on file Sexual Orientation Not on file Obstetrics History Last Filed Vital Signs Vital Sign Reading Time Taken Comments Blood Pressure 177/97 06/08/2025 2:55 PM EDT Pulse 75 06/08/2025 2:55 PM EDT Temperature 36.8 C (98.3 F) 03/31/2025 2:02 PM EDT Respiratory Rate - - Oxygen Saturation - - Inhaled Oxygen Concentration - - Weight 88.5 kg (195 lb) 06/08/2025 2:55 PM EDT Height 157.5 cm (5' 2 ) 11/15/2024 2:13 PM EDT Body Mass Index 35.67 11/15/2024 2:13 PM EDT Plan of Treatment Upcoming Encounters Date Type Department Care Team (Late st Contact Info) Description 10/13/2025 2:00 PM EST Office Visit [facility] [address] [place] [phone] Patti Bray MD [address] [place] [address] Health Maintenance Due Date Last Done Comments Breast Cancer Screening 1955 Colorectal Cancer Screening: Colonoscopy 1955 DTaP,Tdap,and Td Vaccines (1 - Tdap) 1973 Zoster Vaccines (1 of 2) 1973 Pneumococcal Vaccine: 50+ Years (1 of 1 - PCV) 2004 Cholesterol Screening (Lipid Panel) 03/16/2024 Falls Risk Assessment 03/16/2024 Hepatitis C Screening 03/16/2024 Medicare Annual Wellness Visit 03/16/2024 Osteoporosis Screening (Bone Density Screening) 03/16/2024 Social Influencers of Health Screening 03/16/2024 Depression Screening 08/18/2024 Hypertension/CHF/CAD Annual BMP Blood Test 09/14/2024 COVID-19 Vaccine ( season) 2025 06/25/2024, 06/13/2023, 06/22/2022, Additional history exists Influenza Vaccine (#1) 2025 , 06/13/2023, 06/22/2022, Additional history exists RSV Immunization Adult Patients Completed 06/13/2023 HIB Vaccines Aged Out No longer eligi [...] on patient's age to complete this topic Insurance [employer] MEDICARE ADVANTAGE Care Teams Propagator Laborer Relationship Specialty Start Date End Date Emmanuel Simms MD [address] [place] [address] Dr Neri [place] PCP - General Internal Medicine 07/14/24
== END 2025-07-07 16:00 | disposition home or self-care (01) ==
LOC: HO.HMCHD 15:30
PROVIDERS: PCP Physician Assistant Medical; Visit Provider Physician Assistant Medical
DX: E03.9 Hypothyroidism, unspecified (principal); M54.50 Low back pain, unspecified; M25.551 Pain in right hip; M25.552 Pain in left hip; K52.9 Noninfective gastroenteritis and colitis, unspecified; E66.9 Obesity, unspecified

== ENCOUNTER → 2025-07-07 16:14 | Outpatient (BNV) | payer MEDICARE, SELFPAY | PROVIDERS: PCP Physician Assistant Medical; Visit Provider Radiology Diagnostic Radiology | DX: M25.551 Pain in right hip (principal); M54.50 Low back pain, unspecified | CPT/HCPCS: 72100; 73522 ==

== ENCOUNTER 2025-08-01 13:36 | Outpatient (REF) | payer MEDICARE, SELFPAY ==
--- NOTE | ~2025-08-01 | MM_ITS ---
EXAMINATION: DXA BONE DENSITY AXIAL HISTORY: Z78.0 - Asymptomatic menopausal state TECHNIQUE: Stroho Dual energy absorptiometry (DEXA) of the lumbar spine, total left hip, and femoral neck was performed. COMPARISON: Comparison is made with the prior examination dated 03/30/2019. FINDINGS: The bone mineral density of the lumbar spine is 1.330 g/cm2, corresponding to a T-score of 1.2, and a Z-score of 2.2. This is indicative of normal bone mineral density. This represents a BMD change of -6.9% compared to the prior exam. This is statistically significant. The bone mineral density of the left total hip is 0.993 g/cm2, corresponding to a T-score of -0.1, and a Z-score of 0.9. This is indicative of normal bone mineral density. This represents a BMD change of -4.1% compared to the prior exam. This is statistically significant. The bone mineral density of the left femoral neck is 0.906 g/cm2, corresponding to a T-score of -1.0, and a Z-score of 0.3. This is indicative of normal bone mineral density. This represents a BMD change of -1.7% compared to the prior exam. MM/XR DEXA axial skeleton IMPRESSION: Based on bone mineral density, and according to World Health Organization (WHO) criteria, the diagnosis is consistent with normal bone mineral density. Statistically, 68% of repeat scans fall within 1 SD (+/- 0.010 g/cm2 for AP spine L1-L4) and 1 SD (+/- 0.012 g/cm2 for femur total) FRAX is a trademark of the [employer]'s [employer], a World Health Organization (WHO) Collaborating Center. Electronically signed by: Gerardo Mack MD 08/02/2025 07:01 AM [facility]
--- NOTE | ~2025-08-01 | MM_ITS ---
EXAMINATION: MM SCREENING DIGITAL BREAST TOMOSYNTHESIS, BILATERAL CLINICAL INFORMATION: Screening. Asymptomatic. COMPARISON: Mammography: Comparison is made with available priors TECHNIQUE: Digital breast mammography with tomosynthesis is performed in both the craniocaudal and mediolateral oblique views along with computer-aided detection (CAD). FINDINGS: There are scattered areas of fibroglandular density. There are no significant masses, abnormal calcifications, or other abnormalities. MM/MM tomosynthesis screening BI IMPRESSION: No mammographic evidence of malignancy. ASSESSMENT: BI-RADS Category 1: Negative RECOMMENDATION: Routine annual mammography screening. 1 year F/U This examination should not preclude the clinical evaluation of a suspicious palpable abnormality. This patient's information was entered into a reminder system with a target due date for their next mammogram. Electronically signed by: Yolanda Cleary DO 08/03/2025 02:36 PM MIC[facility]EL
--- OUTSIDE RECORDS SUMMARY | 2025-08-01 19:48 | XMS_ITS | Clinical Summary ---
Author Organization [facility] Address [address] [place] [address] Phone Care Team Providers Care Supervisor Pumping Station Name Role Phone Emmanuel Simms MD Primary Care Provider [phone] Allergies Active Allergy Reactions Criticality Noted Date [...] Problem Noted Date Diagnosed Date Cervical cancer 02/03/2024 Hypothyroidism 11/20/2023 Encounters Date Type Department Care Team Description 06/16/2025 11:30 AM EDT Treatment Pelvic Floor Rehabilitation - [address] [phone] Rica Soto, JORGE ALBERTO Urinary incontinence, mixed (Primary Dx); Urinary frequency; Urinary urgency; Muscle weakness; Posture imbalance 06/08/2025 3:15 PM EDT Office Visit Urogynecology - [address] [phone] Aida Gustafson MD Stress incontinence (Primary Dx); OAB (overactive bladder); Urge urinary incontinence 05/05/2025 3:00 PM EDT Treatment Pelvic Floor [address] [phone] Rica Soto PT Urinary incontinence, mixed (Primary Dx); Urinary frequency; Urinary urgency; Muscle weakness; Posture imbalance from Last 3 Months Surgical History Surgery Date Site/Laterality Comments HYSTERECTOMY OOPHORECTOMY TUBAL LIGATION Medical History Medical History Date Comments Abnormal Pap smear of cervix Cervical cancer ([facility] V24, [facility] V28) Social History Tobacco Use Types Packs/Day Years Used Date Smoking Tobacco: Never Assessed Comments Unknown Sex and Gender Information Value Date Recorded Sex Assigned at Not on file Legal Sex Female 9:27 PM EST Gender Identity Not on file Sexual Orientation Not on file Last Filed Vital Signs Vital Sign Reading [...] Description 10/13/2025 2:00 PM EST Office Visit Breast Care [facility] [address] [place] [phone] Patti Bray MD [address] [place] [address] Health Maintenance Due Date Last Done Comments [...] topic Insurance [employer] MEDICARE ADVANTAGE Care Teams Supervisor Pumping Station Relationship Specialty Start Date End Date Emmanuel Simms MD [address] [place] [address] Dr Neri [place] PCP - General Internal Medicine 07/14/24
--- OUTSIDE RECORDS SUMMARY | 2025-08-01 19:48 | XMS_ITS | Patient Health Record ---
Author Organization [facility] Address [address] [place] [address] Care Team Providers Care Lapper Name Role Phone Mendez (RETIRED) Emmanuel ARROYO Primary Care Provide Gerardo Pruitt Unavailable [phone] Allergies Allergen (clinical drug ingredient) Drug/Non Drug [...] Problem Screening for malignant neoplasm of colon (273505944) Encounter for screening for malignant neoplasm of colon (Z12.11) Active confirmed Problem History of adenomatous polyp of colon (506639658) History of adenomatous polyp of colon (Z86.010) Active confirmed Problem Screening for malignant neoplasm of rectum (866620270) Encounter for screening for malignant neoplasm of rectum (Z12.12) Active confirmed Problem Preprocedural examination (524973673032944) Preprocedural examination (Z01.818) Active confirmed Problem History of adenomatous polyp of colon (057523862) Hx of adenomatous colonic polyps (Z86.010) Active confirmed Problem Irritable bowel syndrome (58703956) Other irritable bowel syndrome (K58.8) Active confirmed Problem Essential hypertension (35251166) Hypertension, unspecified type (I10) Active confirmed Problem Diverticulosis of colon (770272970) Diverticulosis of colon (K57.30) Active confirmed Plan Of Treatment Pending Test Test Name Order Date Pathology 06/25/2021 Future Test Test Name Order Date COLONOSCOPY 10/04/2015 COLONOSCOPY 06/06/2021 Insurance Providers Payer Name Payer Address Payer Phone Subscriber Number Group Number Insured Name Patient Relationship to Insured Coverage Start Date Coverage End Date [employer] MEDI COMP (REFERR AL REQUIRE D) [address] [address] [place] [address] [id number] NEDA LARA Self - patient is the insured Medical (General) History Medical History History ICD Code Negative colonoscopy 01-10-20 10 except for mild sigmoid diverticulosis and small internal hemorrhoids Screening colonoscopy in 2004 with remov al of a small tubular adenoma Denies MD,DM,CVA,Lung disease,renal dise ase Colonoscopy in 11/2015 with removal of a polyp-not recovered for path Neg. Cologuard in 07/2019 Surgical History Surgery Date(Month/Year) Tubal ligation LEEP
== END 2025-08-01 13:37 | disposition home or self-care (01) ==
LOC: HO.MAMMO 13:36
PROVIDERS: PCP Physician Assistant Medical; Visit Provider Physician Assistant Medical
DX: Z78.0 Asymptomatic menopausal state (principal); Z12.31 Encounter for screening mammogram for malignant neoplasm of breast
CPT/HCPCS: 77063; 77067; 77080

== ENCOUNTER → 2025-08-01 14:00 | Outpatient (BNV) | payer MEDICARE, SELFPAY | PROVIDERS: PCP Physician Assistant Medical; Visit Provider Radiology Diagnostic Radiology | DX: Z12.31 Encounter for screening mammogram for malignant neoplasm of breast (principal) | CPT/HCPCS: 77063; 77067; 77080 ==